=== PATIENT | female | born 1935 | race Hispanic/Latino ===

== ENCOUNTER 2022-04-13 20:14 | Inpatient (IN) ==
--- NOTE | 2022-04-13 20:48 | Emergency Department Note ---
Lower Extremity Injury HPI General Chief Complaint: Extremity Injury, Lower Stated Complaint: leg swelling Time Seen by Provider: 04/13/22 20:20 Source: family Mode of arrival: wheelchair Limitations: language barrier (Patient only speaks Moroccan) and altered mental status History of Present Illness HPI Narrative: Narrative: Family presents to ED with patient's with concerns of right-sided hip pain x7 days. Family states that patient fell on 06 April initially complained of pain but was able to ambulate. Her ambulation has progressively gotten worse to the point today where she just barely moves. They states that she will move her left leg or her right leg. They are not sure if she hit her head when she fell was they state that she has some altered mental status right now. They state that her Abilify was changed by her PCP and since that time she has just been a little bit more odd than baseline. They deny fever, chills, nausea, vomiting, diarrhea, dysuria, hematuria, urinary frequency, cardiac chest pain, shortness of breath. Family denies any [id number]-[id number] medication. They deny any other alleviating or aggravating factors. Related Data Home Medications Medication Instructions Recorded Confirmed calcium carbonate 500 mg calcium 1,200 mg PO QDAY 09/03/15 04/10/22 (1,250 mg) tablet flaxseed oil 1,000 mg capsule 1,000 mg PO QDAY 09/03/15 04/10/22 lactobacillus combination no.8 3 3,000 mmu cells PO QDAY 09/03/15 04/10/22 billion cell capsule prenat.vits,jenna,pim-[id number]-blkcj 1 tab PO QDAY 09/03/15 04/10/22 vitamin B complex 1 tab-cap PO QDAY 09/03/15 04/10/22 polyethylene glycol 3350 17 17 g PO QDAY 07/19/20 04/10/22 gram/dose oral powder (Miralax) Previous Rx's Medication Instructions Recorded sodium chloride 1 gram tablet 1,000 mg PO QDAY #1 tab 11/09/19 alendronate 70 mg tablet 70 mg PO QWEEK #12 tabs 01/15/22 hydrocodone 5 mg-acetaminophen 325 1 tab PO Q8H PRN pain #12 tabs 02/20/22 mg tablet divalproex 125 mg tablet,delayed 125 mg PO BID #60 tabs 02/26/22 release (Depakote) aripiprazole 5 mg tablet (Abilify) 5 mg PO QHS #30 tabs 04/10/22 Allergies Allergy/AdvReac Type Severity Reaction Status Date / Time No Known Drug Allergies Allergy Verified 04/13/22 20:20 Review of Systems ROS ROS Narrative: Narrative: All systems ED: reviewed and negative except as stated. 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, unspecified portion (Chronic) Constipation (Chronic) Depression (Chronic) Gastroesophageal reflux (Chronic) Hallux valgus (Chronic 09/13/14) Hyposmolality and/or hyponatremia (Chronic 10/29/14) Hypothyroidism (Chronic) Memory loss (Chronic) Obesity (Chronic) Osteoarthritis, multiple sites (Chronic) Osteoarthritis, lower leg, localized (Chronic) Hemorrhoids (Chronic 08/23/15) Adenomatous colon polyp (Chronic) Carcinoid tumor (Chronic) Infection of nailbed of toe of left foot (Acute) Encounter for Medicare annual wellness exam (Chronic) Urinary tract infection (Acute) Dysuria (Acute) Effusion, right shoulder (Acute) Pain due to dental caries (Acute) Cough (Acute) Distal radial fracture (Acute) Fall from slip, trip, or stumble (Acute) Pain, dental (Acute) Abscess, dental (Acute) SBO (small bowel obstruction) (Acute) Acute hyponatremia (Acute) Urinary retention (Acute) Partial small bowel obstruction (Acute) Volume depletion, gastrointestinal loss (Acute) Postoperative ileus (Acute) Elevated troponin (Acute) Anemia (Acute) Hyponatremia (Acute) Medicare annual wellness visit, initial (Acute) Urge incontinence (Acute) Urge incontinence (Acute) Annual physical exam (Acute) Dementia (Acute) Agitation due to dementia (Acute) Insomnia (Acute) Contusion of right foot (Acute) Bilateral leg edema (Acute) Bilateral leg edema (Acute) UTI (urinary tract infection) (Acute) Generalized anxiety disorder (Acute) Cognitive and behavioral changes (Acute) Mood changes (Acute) Venous insufficiency (Acute) OCD (obsessive compulsive disorder) (Acute) Insomnia (Acute) AMS (altered mental status) (Acute) Acute hyponatremia (Acute) Leg edema (Acute) Medical History Abdominal pain Abnormal glucose Adenomatous colon polyp Agitation due to dementia Anemia Annual physical exam Anxiety Atrophic vaginitis Back pain 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 Chronic interstitial cystitis (05/26/11) Colon polyp, hyperplastic (08/23/15) Constipation Dementia Depression PHQ 9 is 5, cut back dose of citalopram to 10mg qd. Diverticulitis of colon Diverticulosis Dysuria Elevated troponin Encounter for Medicare annual wellness exam Gastroesophageal reflux Hallux valgus (09/13/14) Dr. Mcdonough Hematuria (12/05/14) Hemorrhoids (08/23/15) Colonoscopy with polypectomy done, lower GI bleed resolved. Herpes zoster (12/05/14) History of hepatitis A hx of Hep A in ' History of lymphoid leukemia Hyponatremia Hyposmolality and/or hyponatremia (10/29/14) Hypothyroidism Infection of nailbed of toe of left foot Insomnia Leukopenia (12/20/14) Lower gastrointestinal hemorrhage Likely int hemorrhois vs diverticular bleed, rx with hydrocortisonecream, h/h inr stable Urgent referral to GI given h/o TA in past, as well as carcinoid tumor. 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 History of carcinoid tumor in small bowel resected 10/2011 History of abdominal surgery Abdominal hernia repair History of section 1964 History of hernia repair History of hysterectomy 1979 History of hysterectomy History of resection of small bowel 07/2020-small bowel adhesiolysis and small bowel resection with reanastomosis. Family History Father Malignant neoplasm of lung Social History Smoking Status: Never smoker Alcohol Intake Frequency: does not drink Substance Use: does not use Exam Narrative Narrative: Narrative: General Limitations: language barrier (Patient only speaks Moroccan) and altered mental status General appearance: Present alert Head Head: Present atraumatic and normocephalic Eye Eye: Present PERRL and EOMI ENT ENT: Present normal exam and normal oropharynx Respiratory Respiratory: Present normal lung sounds bilaterally; Absent respiratory distress Cardiovascular Cardiovascular: Present regular rate and normal rhythm Adbominal Abdominal: Present soft and normal bowel sounds; Absent tenderness Extremities Extremities: Present tenderness (Bilateral hips) and other (2+ by lower extremity edema) Neurological Neurological: Present alert and other (Unable to fully assess due to language barrier and patient's altered mental status) Psychiatric Psychiatric: Present flat affect and poor eye contact Skin Skin: Present warm (WNL) and intact Course Course Course Narrative: Patient was evaluated for hip pain altered mental status. She had fell couple days ago so a CT of the head was obtained with image reviewed myself with no acute intracranial findings. CT of the pelvis was obtained with image reviewed myself with no acute bony abnormality. Lab work was obtained and show that patient's was severely hyponatremic with a sodium of 114. Ammonia level was wit hin normal limits and her renal function was stable as well. Her altered mental status most likely secondary to the severe hyponatremia. This is probably not the reason why patient has not been ambulating properly per family. Case was discussed with hospitalist who has agreed to evaluate the patient for admission. Family is in agreement with plan. Consultations Consultation #1: Case discussed with hospitalist who has agreed to evaluate the patient for admission Time: 22:15 Vital Signs Vital signs: Vital Signs Temperature 98.8 F 04/13/22 20:14 Pulse Rate 85 04/13/22 20:14 Respiratory Rate 18 04/13/22 20:14 Blood Pressure 163/93 04/13/22 20:14 Pulse Oximetry (%) 100 04/13/22 20:14 Oxygen Delivery Method 04/13/22 20:14 Temperature 98.8 F 04/13/22 20:14 Pulse Rate 86 04/13/22 23:02 Respiratory Rate 18 04/13/22 20:14 Blood Pressure 164/79 04/13/22 23:02 Pulse Oximetry (%) 97 04/13/22 23:02 Oxygen Delivery Method 04/13/22 20:14 MDM MDM Narrative Medical decision making narrative: Narrative: Differential Diagnosis Differential Diagnosis: Hip fracture, UTI Medical Records Medical records reviewed: Yes I reviewed the patient's medical records. Lab Data Lab results reviewed: Yes I reviewed the patient's lab results. Result diagrams: 04/13/22 20:57 04/13/22 20:57 Labs: Lab Results 04/13/22 04/13/22 04/13/22 Range/Units 20:57 20:57 20:57 WBC 6.2 (4.5-11.0) K/mcL RBC 3.63 (3.59-5.38) M/mcL Hgb 10.8 L (11.2-15.7) g/dL Hct 31.2 L (34.1-44.9) % POC Hct (36-48) MCV 86.0 (80.0-100.0) fL MCH 29.8 (26.0-34.0) pg MCHC 34.6 (31.0-36.0) g/dL RDW 13.6 (11.5-14.5) % Plt Count 290 (140-440) K/mcL MPV 9.6 (7.4-10.4) fL Immature Gran % (Auto) 0.5 (0.0-0.5) % Neut % (Auto) 68.1 (38.0-78.0) % Lymph % (Auto) 17.2 (15.5-49.0) % Colbert % (Auto) 13.5 H (1.0-12.0) % Eos % (Auto) 0.2 (0.0-7.0) % Baso % (Auto) 0.5 (0.0-2.0) % Lymph # (Auto) 1.06 L (1.50-4.80) K/mcL Colbert # (Auto) 0.83 (0.10-0.90) K/mcL Eos # (Auto) 0.01 (0.00-0.70) K/mcL Baso # (Auto) 0.03 (0.00-0.30) K/mcL Immature Gran # 0.03 (0.00-0.05) K/mcl Absolute Neutrophils 4.23 (1.80-8.00) K/mcL POC Sodium (133-145) Sodium 114 L* (133-145) mmol/L POC Potassium (3.3-5.1) Potassium 4.3 (3.3-5.1) mmol/L POC Chloride (96-108) Chloride 78 L (96-108) mmol/L Carbon Dioxide 23 (22-30) mmol/L POC Total CO2 (22-30) Anion Gap 13.0 (8.0-16.0) POC BUN (6-20) BUN 15 (8-23) mg/dL Creatinine 1.0 (0.6-1.1) mg/dL POC Creatinine (0.6-1.2) GFR Calculation 51 Glucose 100 (70-105) mg/dL POC Glucose (70-105) Calcium 9.3 (8.6-10.4) mg/dL POC WB Ioniz Calcium (1.16-1.32) Total Bilirubin 0.4 (0.1-1.0) mg/dL AST 25 (<32) U/L ALT 11 (<40) U/L Alkaline Phosphatase 72 (39-117) U/L Ammonia 14 (11-51) umol/L NT-Pro-B Natriuret Pep (<450.0) pg/mL Total Protein 7.3 (5.9-8.4) gm/dL Albumin 3.8 (3.2-5.2) gm/dL Globulin 3.5 (2.2-3.7) gm/dL Albumin/Globulin Ratio 1.1 (1.0-2.3) 04/13/22 04/13/22 Range/Units 21:03 22:04 WBC (4.5-11.0) K/mcL RBC (3.59-5.38) M/mcL Hgb (11.2-15.7) g/dL Hct (34.1-44.9) % POC Hct 37.0 (36-48) MCV (80.0-100.0) fL MCH (26.0-34.0) pg MCHC (31.0-36.0) g/dL RDW (11.5-14.5) % Plt Count (140-440) K/mcL MPV (7.4-10.4) fL Immature Gran % (Auto) (0.0-0.5) % Neut % (Auto) (38.0-78.0) % Lymph % (Auto) (15.5-49.0) % Colbert % (Auto) (1.0-12.0) % Eos % (Auto) (0.0-7.0) % Baso % (Auto) (0.0-2.0) % Lymph # (Auto) (1.50-4.80) K/mcL Colbert # (Auto) (0.10-0.90) K/mcL Eos # (Auto) (0.00-0.70) K/mcL Baso # (Auto) (0.00-0.30) K/mcL Immature Gran # (0.00-0.05) K/mcl Absolute Neutrophils (1.80-8.00) K/mcL POC Sodium 116 L* (133-145) Sodium (133-145) mmol/L POC Potassium 4.4 (3.3-5.1) Potassium (3.3-5.1) mmol/L POC Chloride 82 L (96-108) Chloride (96-108) mmol/L Carbon Dioxide (22-30) mmol/L POC Total CO2 23.0 (22-30) Anion Gap (8.0-16.0) POC BUN 21 H (6-20) BUN (8-23) mg/dL Creatinine (0.6-1.1) mg/dL POC Creatinine 1.0 (0.6-1.2) GFR Calculation Glucose (70-105) mg/dL POC Glucose 104 (70-105) Calcium (8.6-10.4) mg/dL POC WB Ioniz Calcium 1.16 (1.16-1.32) Total Bilirubin (0.1-1.0) mg/dL AST (<32) U/L ALT (<40) U/L Alkaline Phosphatase (39-117) U/L Ammonia (11-51) umol/L NT-Pro-B Natriuret Pep 1534.0 H (<450.0) pg/mL Total Protein (5.9-8.4) gm/dL Albumin (3.2-5.2) gm/dL Globulin (2.2-3.7) gm/dL Albumin/Globulin Ratio (1.0-2.3) Radiology Data Radiology results reviewed: Yes I reviewed the patient's radiology results. Radiology results narrative: CT of the head obtained with image reviewed myself, no acute intracranial findings CT of the pelvis obtained with image reviewed myself, no obvious fractures EKG Data EKG #1: EKG attestation: Yes I reviewed and interpreted this EKG. EKG shows normal: sinus rhythm Rate: normal Rhythm: NSR Christoval/QRS: normal Heart block present: None ST segment elevation in: None ST segment depression in: None T wave inversions noted in: None Hyperacute T waves: None QTc: normal QRS morphology: Present normal Interpretation: no acute changes Core Measures AMI Core Measures Followed: Yes Discharge Plan Patient/Caregiver Discharge Instructions Pt seen by ASSEMBLER/PA only: No Clinical Impression: Acute hyponatremia, Leg edema AMS (altered mental status) Qualifiers: Altered mental status type: unspecified Qualified Code(s): R41.82 - Altered mental status, unspecified Patient Disposition: Xfer As Outpt/Obs ([facility]) Condition: Critical Follow up with: Ponce Renae MD [Primary Care Provider] - Prescriptions: No Action aripiprazole [Abilify] 5 mg tablet 5 mg PO QHS Qty: 30 0RF sodium chloride 1 gram tablet 1,000 mg PO QDAY Qty: 1 0RF alendronate 70 mg tablet 70 mg PO QWEEK Qty: 12 1RF divalproex [Depakote] 125 mg tablet,delayed release (DR/EC) 125 mg PO BID Qty: 60 1RF polyethylene glycol 3350 [Miralax] 17 gram/dose powder 17 g PO QDAY flaxseed oil 1,000 mg capsule 1,000 mg PO QDAY calcium carbonate 500 mg calcium (1,250 mg) tablet 1,200 mg PO QDAY vitamin B complex tablet 1 tab-cap PO QDAY prenat.vits,jenna,enp-vood-ywnru tablet 1 tab PO QDAY lactobacillus combination no.8 3 billion cell capsule 3,000 mmu cells PO QDAY hydrocodone-acetaminophen 5-325 mg tablet 1 tab PO Q8H PRN (Reason: pain) Qty: 12 0RF
[2022-04-13 21:08] LABS: POC Calcium, Ionized 1.16 (1.16-1.32); POC Potassium 4.4 (3.3-5.1)
[2022-04-13 21:43] LABS: Basophils # (Auto) 0.03 K/mcL (0.00-0.30); Basophils % (Auto) 0.5 % (0.0-2.0); Eosinophils # (Auto) 0.01 K/mcL (0.00-0.70); Eosinophils % (Auto) 0.2 % (0.0-7.0); Hematocrit 31.2 % (34.1-44.9); Hemoglobin 10.8 g/dL (11.2-15.7); Lymphocytes # (Auto) 1.06 K/mcL (1.50-4.80); Lymphocytes % (Auto) 17.2 % (15.5-49.0); Mean Corpuscular HGB Conc 34.6 g/dL (31.0-36.0); Mean Platelet Volume 9.6 fL (7.4-10.4); Monocytes # (Auto) 0.83 K/mcL (0.10-0.90); Monocytes % (Auto) 13.5 % (1.0-12.0); Neutrophils % (Auto) 68.1 % (38.0-78.0); Platelet Count 290 K/mcL (140-440); RBC 3.63 M/mcL (3.59-5.38); Red Cell Distribution Width 13.6 % (11.5-14.5); WBC 6.2 K/mcL (4.5-11.0)
[2022-04-13 22:04] LABS: ALT/SGPT 11 U/L (<40); AST/SGOT 25 U/L (<32); Albumin 3.8 gm/dL (3.2-5.2); Albumin/Globulin Ratio 1.1 (1.0-2.3); Alkaline Phosphatase 72 U/L (39-117); Bilirubin,Total 0.4 mg/dL (0.1-1.0); Blood Urea Nitrogen 15 mg/dL (8-23); Calcium 9.3 mg/dL (8.6-10.4); Carbon Dioxide 23 mmol/L (22-30); Chloride 78 mmol/L (96-108); Globulin 3.5 gm/dL (2.2-3.7); Glomerular Filtration Rate 51; Glucose 100 mg/dL (70-105)
[2022-04-13] MEDS ORDERED: LACTULOSE 20 GM/30 ML ORAL.SOL PO PRN (23:31)
[2022-04-13] MEDS ORDERED: ONDANSETRON 4 MG/2 ML VIAL IV PRN (23:31)
[2022-04-13] MEDS ORDERED: SENNOSIDES 1 TABLET PO PRN (23:31)
[2022-04-13] MEDS ORDERED: 0.9 % SODIUM CHLORIDE 1,000 ML IV SCH (23:31)
[2022-04-14] MEDS ORDERED: LORazepam 2 MG/ML VIAL IV ONE ×2 (00:50→08:40)
[2022-04-14] MEDS ORDERED: LORazepam 2 MG/ML VIAL ONE (01:00)
[2022-04-14 01:40] LABS: Sodium, Urine Random 94 mmol/L
[2022-04-14 01:51] LABS: Osmolality,Urine 429 mOSM/kg (80-1000)
[2022-04-14 02:00] LABS: Blood Urea Nitrogen 20 mg/dL (8-23); Calcium 9.2 mg/dL (8.6-10.4); Carbon Dioxide 24 mmol/L (22-30); Chloride 80 mmol/L (96-108); Glomerular Filtration Rate 58; Glucose 99 mg/dL (70-105)
[2022-04-14] MEDS: ACETAMINOPHEN 1,000 MG/100 ML BAG IV PRN (03:19)
[2022-04-14] MEDS ORDERED: ACETAMINOPHEN 1,000 MG/100 ML BAG IV ONE (03:22)
[2022-04-14] MEDS: 0.9 % SODIUM CHLORIDE 10 ML SYRINGE IV SCH ×3 (04:58→20:05)
--- NOTE | 2022-04-14 05:48 | Cat Scan Report ---
INDICATION: ams COMPARISON: Previous brain CT scan dated 07/07/2020. Previous MRI scans dated 08/18/2012 at 05/10/2012 TECHNIQUE: Axial noncontrast-enhanced images through the brain. Sagittally and coronally reformatted images. FINDINGS: Examination was initially interpreted by Dr. [facility] Cerebral hemispheres:Negative. No intra-axial abnormality. No intra-axial hematoma. No localized mass effect. There is cerebral atrophy which is predominantly bifrontal and right temporal. Typically frontal temporal lobar degeneration occurs in younger patients. There is a atrophic pattern is considered nonspecific and probably age related in this patient. Brainstem and cerebellum:No intra-axial abnormality Extra-axial:No acute hemorrhage. No subdural or epidural hematoma. No subarachnoid hemorrhage. Basilar cisterns are normal Calvarial:No calvarial fracture. No lytic lesion Temporal bones are negative. No destructive lesions Soft tissue, orbits, sinuses:Orbits and visualized facial soft tissues and paranasal sinuses are negative IMPRESSION: 1. Atrophy, probably age related 2. No acute or focal abnormality The exam was performed using radiation dose optimization techniques including, but not limited to, automated exposure control, adjustment of the mA and/or kV according to patient size and use of iterative reconstruction technique. Interpreted and Authenticated by: James Perez 04/14/22
--- NOTE | 2022-04-14 05:53 | Cat Scan Report ---
INDICATION: pain bilat hips TECHNIQUE: Axial images through the pelvis. Intravenous contrast material was not administered. Sagittal and coronal reformatted images COMPARISON: None. FINDINGS: Examination was initially interpreted by [facility] There is no hip fracture. Femoral heads and necks are negative. No evidence for avascular necrosis. There is degenerative joint disease bilaterally symmetric. Sacrum is negative. There is no insufficiency fracture. Pelvis is negative. No lytic lesions. No fracture. Superior and inferior pubic rami are intact. There is generalized infiltration of the subcutaneous fat. This is in the lower abdominal wall and gluteal regions. Findings may be related to peripheral edema and anasarca. There is no focal mass. No abscess. No soft tissue gas. The bladder is distended. No bladder calculi. No detectable mass on this noncontrast enhanced examination. Anterior abdominal wall in the pelvis is patulous. There is mild sigmoid diverticulosis without evidence for diverticulitis. IMPRESSION: 1. 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 No hip fracture 2. Subcutaneous soft tissue density may be secondary to peripheral edema. No focal mass 3. Mildly distended bladder Interpreted and Authenticated by: James Perez 04/14/22
[2022-04-14] MEDS ORDERED: cefTRIAXone 1 GM VIAL IV ONE (06:49)
[2022-04-14 08:00] LABS: Blood Urea Nitrogen 19 mg/dL (8-23); Calcium 8.5 mg/dL (8.6-10.4); Carbon Dioxide 22 mmol/L (22-30); Chloride 83 mmol/L (96-108); Glomerular Filtration Rate 58; Glucose 74 mg/dL (70-105)
[2022-04-14] MEDS: DOCUSATE SODIUM 100 MG CAPSULE PO SCH ×2 (08:48→20:05)
[2022-04-14] MEDS: ENOXAPARIN 40 MG/0.4 ML SYRINGE SQ SCH (08:48)
[2022-04-14] MEDS: QUEtiapine 25 MG TABLET PO SCH ×2 (08:49→20:05)
[2022-04-14 08:59] LABS: Basophils # (Auto) 0.04 K/mcL (0.00-0.30); Basophils % (Auto) 0.7 % (0.0-2.0); Eosinophils # (Auto) 0.15 K/mcL (0.00-0.70); Eosinophils % (Auto) 2.5 % (0.0-7.0); Hematocrit 27.5 % (34.1-44.9); Lymphocytes # (Auto) 1.38 K/mcL (1.50-4.80); Lymphocytes % (Auto) 22.5 % (15.5-49.0); Mean Cell Volume 88.4 fL (80.0-100.0); Mean Corpuscular HGB Conc 32.7 g/dL (31.0-36.0); Mean Platelet Volume 9.7 fL (7.4-10.4); Monocytes # (Auto) 1.44 K/mcL (0.10-0.90); Monocytes % (Auto) 23.5 % (1.0-12.0); Neutrophils % (Auto) 50.1 % (38.0-78.0); Platelet Count 213 K/mcL (140-440); RBC 3.11 M/mcL (3.59-5.38); WBC 6.1 K/mcL (4.5-11.0)
--- NOTE | 2022-04-14 10:16 | EKG ---
[facility] Test Date: 2022-04-13 Pat Name: Brandy Swanson Department: ED Room: Gender: Female Transition Specialist: ANTONI : 1935 Requested By: Poncho Kemp Order Number: [id number] Reading MD: Jaun Ramos Measurements Intervals [place] Rate: 82 P: 76 TN: 197 QRS: -22 QRSD: 102 T: 21 QT: 397 QTc: 464 Interpretive Statements Sinus rhythm Borderline left axis deviation Low voltage, precordial leads RSR' in V1 or V2, probably normal variant Electronically Signed On 04-14-2022 10:16:52 PDT by Jaun Ramos /store/M0/[id number]
--- NOTE | 2022-04-14 12:01 | Internal Med History&Physical ---
HPI History of Present Illness Patient information: Note initiated : 04/14/22 at 11:53 am Service Date, if different from initiated Date: [as above] Patient: Brandy Swanson 86 y/o F admitted on 04/13/22 for leg swelling. Chief Complaint: [ALOC] Chief complaint: Weakness, fall History of present illness: Ms. Swanson is a 86 year old F with a past medical history significant for dementia, hypothyroidism, anxiety/depression, and pedal edema who presents to the hospital with delirium upon dementia. History is obtained secondhand from the daughter as the patient is quite encephalopathic. Of note, per family report, she did have a fall on April 06 and thereafter was complaining of hip pain. Per the daughter's report, the patient has been declining functionally and cognitively recently. Her primary care physician did put her on Depakote for her delirium however this only helped for a short period of time. Per the daughter's report, she has brought her mother to the ER several times. She is hopeful that she can be medically stabilized, then go to a fdc facility and possibly return home. She is still unsure if she can look after her mother at home in the future. On presentation, the patient was hemodynamically stable and afebrile. She was found to be significantly hyponatremic with a sodium of 116. The hospitalist service was asked to admit the patient for further management and evaluation of her toxic metabolic encephalopathy and severe hyponatremia in the setting of dementia. 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, unspecified portion (Chronic) Constipation (Chronic) Depression (Chronic) Gastroesophageal reflux (Chronic) Hallux valgus (Chronic 09/13/14) Hyposmolality and/or hyponatremia (Chronic 10/29/14) Hypothyroidism (Chronic) Memory loss (Chronic) Obesity (Chronic) Osteoarthritis, multiple sites (Chronic) Osteoarthritis, lower leg, localized (Chronic) Hemorrhoids (Chronic 08/23/15) Adenomatous colon polyp (Chronic) Carcinoid tumor (Chronic) Infection of nailbed of toe of left foot (Acute) Encounter for Medicare annual wellness exam (Chronic) Urinary tract infection (Acute) Dysuria (Acute) Effusion, right shoulder (Acute) Pain due to dental caries (Acute) Cough (Acute) Distal radial fracture (Acute) Fall from slip, trip, or stumble (Acute) Pain, dental (Acute) Abscess, dental (Acute) SBO (small bowel obstruction) (Acute) Acute hyponatremia (Acute) Urinary retention (Acute) Partial small bowel obstruction (Acute) Volume depletion, gastrointestinal loss (Acute) Postoperative ileus (Acute) Elevated troponin (Acute) Anemia (Acute) Hyponatremia (Acute) Medicare annual wellness visit, initial (Acute) Urge incontinence (Acute) Urge incontinence (Acute) Annual physical exam (Acute) Dementia (Acute) Agitation due to dementia (Acute) Insomnia (Acute) Contusion of right foot (Acute) Bilateral leg edema (Acute) Bilateral leg edema (Acute) UTI (urinary tract infection) (Acute) Generalized anxiety disorder (Acute) Cognitive and behavioral changes (Acute) Mood changes (Acute) Venous insufficiency (Acute) OCD (obsessive compulsive disorder) (Acute) Insomnia (Acute) AMS (altered mental status) (Acute) Acute hyponatremia (Acute) Leg edema (Acute) Medical History Abdominal pain Abnormal glucose Adenomatous colon polyp Agitation due to dementia Anemia Annual physical exam Anxiety Atrophic vaginitis Back pain 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 Chronic interstitial cystitis (05/26/11) Colon polyp, hyperplastic (08/23/15) Constipation Dementia Depression PHQ 9 is 5, cut back dose of citalopram to 10mg qd. Diverticulitis of colon Diverticulosis Dysuria Elevated troponin Encounter for Medicare annual wellness exam Gastroesophageal reflux Hallux valgus (09/13/14) Dr. Mcdonough Hematuria (12/05/14) Hemorrhoids (08/23/15) Colonoscopy with polypectomy done, lower GI bleed resolved. Herpes zoster (12/05/14) History of hepatitis A hx of Hep A in 20's History of lymphoid leukemia Hyponatremia Hyposmolality and/or hyponatremia (10/29/14) Hypothyroidism Infection of nailbed of toe of left foot Insomnia Leukopenia (12/20/14) Lower gastrointestinal hemorrhage Likely int hemorrhois vs diverticular bleed, rx with hydrocortisonecream, h/h inr stable Urgent referral to GI given h/o TA in past, as well as carcinoid tumor. 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 History of carcinoid tumor in small bowel resected 10/2011 History of abdominal surgery Abdominal hernia repair History of section 1964 History of hernia repair History of hysterectomy 1979 History of hysterectomy History of resection of small bowel 07/2020-small bowel adhesiolysis and small bowel resection with reanastomosis. Family History Father Malignant neoplasm of lung Social History marital status: legally alcohol intake frequency: does not drink substance use type: does not use additional history: Patient uses a walker and lives at home with her daughter MEDS/ALLERGIES Home Medications and Allergies Home Medications Medication Instructions Recorded Confirmed Type flaxseed oil 1,000 mg capsule 1,000 mg PO QDAY 09/03/15 04/14/22 History lactobacillus combination no.8 3 3,000 mmu cells PO QDAY 09/03/15 04/14/22 History billion cell capsule prenat.vits,jenna,[id number] 1 tab PO QDAY 09/03/15 04/14/22 History vitamin B complex 1 tab-cap PO QDAY 09/03/15 04/14/22 History sodium chloride 1 gram tablet 1,000 mg PO QDAY #1 tab 11/09/19 04/14/22 Rx polyethylene glycol 3350 17 17 g PO QDAY 07/19/20 04/14/22 History gram/dose oral powder (Miralax) alendronate 70 mg tablet 70 mg PO QWEEK #12 tabs 01/15/22 04/14/22 Rx divalproex 125 mg tablet,delayed 125 mg PO BID #60 tabs 02/26/22 04/14/22 Rx release (Depakote) aripiprazole 5 mg tablet (Abilify) 5 mg PO QHS #30 tabs 04/10/22 04/14/22 Rx Allergies Allergy/AdvReac Type Severity Reaction Status Date / Time No Known Drug Allergies Allergy Verified 04/14/22 00:19 EXAM Constitutional Vitals: Temp Pulse Resp BP Pulse Ox O2 Del Method O2 Flow Rate 97.4 F 65 17 107/51 94 0 04/14/22 08:01 04/14/22 10:06 04/14/22 10:06 04/14/22 10:06 04/14/22 10:06 04/14/22 03:04 04/14/22 08:01 General appearance: obese Head Head exam: Present atraumatic, normal inspection and normocephalic Eye Eye exam: Present EOMI, normal appearance and PERRL; Absent conjunctival injection ENT ENT exam: Present normal exam; Absent mucous membranes dry Neck Neck exam: Present full ROM; Absent lymphadenopathy Respiratory Respiratory exam: Present normal respiratory exam and CTAB; Absent decreased breath sounds, respiratory distress or wheezes Cardiovascular Cardiovascular exam: Present normal rate and rhythm and RRR; Absent JVD GI/Abdominal GI/Abdominal exam: Present normal bowel sounds and soft; Absent diminished bowel sounds, distended, guarding, mass, rebound or tenderness Neurological Exam Neurological exam: Present alert and altered Expanded Neurological Exam Neurological exam: Present inattentive Psychiatric Psychiatric exam: Present agitated and anxious Skin Skin exam: Present intact and warm; Absent erythema, pallor, petechiae or rash DATA Data Completed and Pending Labs: Labs from last 24 hours 04/14/22 04/14/22 04/13/22 05:36 05:36 23:45 WBC 6.1 RBC 3.11 L Hgb 9.0 L Hct 27.5 L POC Hct MCV 88.4 MCH 28.9 MCHC 32.7 RDW 14.0 Plt Count 213 MPV 9.7 Immature Gran % (Auto) 0.7 H Neut % (Auto) 50.1 Lymph % (Auto) 22.5 Ralls % (Auto) 23.5 H Eos % (Auto) 2.5 Baso % (Auto) 0.7 Lymph # (Auto) 1.38 L Ralls # (Auto) 1.44 H Eos # (Auto) 0.15 Baso # (Auto) 0.04 Immature Gran # 0.04 Absolute Neutrophils 3.11 POC Sodium Sodium 116 L* 114 L* POC Potassium Potassium 4.0 4.4 POC Chloride Chloride 83 L 80 L Carbon Dioxide 22 24 POC Total CO2 Anion Gap 11.0 10.0 POC BUN BUN 19 20 Creatinine 0.9 0.9 POC Creatinine GFR Calculation 58 58 Glucose 74 99 POC Glucose Osmolality Calcium 8.5 L 9.2 POC WB Ioniz Calcium Total Bilirubin AST ALT Alkaline Phosphatase Ammonia NT-Pro-B Natriuret Pep Total Protein Albumin Globulin Albumin/Globulin Ratio Urine Osmolality Ur Random Sodium 04/13/22 04/13/22 04/13/22 22:17 22:17 22:04 WBC RBC Hgb Hct POC Hct MCV MCH MCHC RDW Plt Count MPV Immature Gran % (Auto) Neut % (Auto) Lymph % (Auto) Ralls % (Auto) Eos % (Auto) Baso % (Auto) Lymph # (Auto) Ralls # (Auto) Eos # (Auto) Baso # (Auto) Immature Gran # Absolute Neutrophils POC Sodium Sodium POC Potassium Potassium POC Chloride Chloride Carbon Dioxide POC Total CO2 Anion Gap POC BUN BUN Creatinine POC Creatinine GFR Calculation Glucose POC Glucose Osmolality 245 L Calcium POC WB Ioniz Calcium Total Bilirubin AST ALT Alkaline Phosphatase Ammonia NT-Pro-B Natriuret Pep 1534.0 H Total Protein Albumin Globulin Albumin/Globulin Ratio Urine Osmolality 429 Ur Random Sodium 94 04/13/22 04/13/22 04/13/22 21:03 20:57 20:57 WBC 6.2 RBC 3.63 Hgb 10.8 L Hct 31.2 L POC Hct 37.0 MCV 86.0 MCH 29.8 MCHC 34.6 RDW 13.6 Plt Count 290 MPV 9.6 Immature Gran % (Auto) 0.5 Neut % (Auto) 68.1 Lymph % (Auto) 17.2 Ralls % (Auto) 13.5 H Eos % (Auto) 0.2 Baso % (Auto) 0.5 Lymph # (Auto) 1.06 L Ralls # (Auto) 0.83 Eos # (Auto) 0.01 Baso # (Auto) 0.03 Immature Gran # 0.03 Absolute Neutrophils 4.23 POC Sodium 116 L* Sodium POC Potassium 4.4 Potassium POC Chloride 82 L Chloride Carbon Dioxide POC Total CO2 23.0 Anion Gap POC BUN 21 H BUN Creatinine POC Creatinine 1.0 GFR Calculation Glucose POC Glucose 104 Osmolality Calcium POC WB Ioniz Calcium 1.16 Total Bilirubin AST ALT Alkaline Phosphatase Ammonia 14 NT-Pro-B Natriuret Pep Total Protein Albumin Globulin Albumin/Globulin Ratio Urine Osmolality Ur Random Sodium 04/13/22 20:57 WBC RBC Hgb Hct POC Hct MCV MCH MCHC RDW Plt Count MPV Immature Gran % (Auto) Neut % (Auto) Lymph % (Auto) Ralls % (Auto) Eos % (Auto) Baso % (Auto) Lymph # (Auto) Ralls # (Auto) Eos # (Auto) Baso # (Auto) Immature Gran # Absolute Neutrophils POC Sodium Sodium 114 L* POC Potassium Potassium 4.3 POC Chloride Chloride 78 L Carbon Dioxide 23 POC Total CO2 Anion Gap 13.0 POC BUN BUN 15 Creatinine 1.0 POC Creatinine GFR Calculation 51 Glucose 100 POC Glucose Osmolality Calcium 9.3 POC WB Ioniz Calcium Total Bilirubin 0.4 AST 25 ALT 11 Alkaline Phosphatase 72 Ammonia NT-Pro-B Natriuret Pep Total Protein 7.3 Albumin 3.8 Globulin 3.5 Albumin/Globulin Ratio 1.1 Urine Osmolality Ur Random Sodium A/P Assessment and plan (1) Toxic metabolic encephalopathy: Status: Acute (2) Acute hyponatremia: Status: Acute (3) Dementia: Status: Acute (4) Leg edema: Status: Acute (5) Fall: Status: Acute (6) Hypothyroidism: Status: Chronic (7) Obesity: Status: Chronic Narrative A/P Narrative: The patient is being hospitalized for further management and evaluation of her toxic metabolic encephalopathy. This may be simply delirium upon dementia or may be exacerbated by her underlying hyponatremia. 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 She will be placed on 800 cc fluid restriction. We will follow her BMP, and may consider adding salt tabs. The patient's IV fluids have now been discontinued as there was no improvement. For her agitation, she has required IV Ativan and will be started on Seroquel 25 mg p.o. twice daily. She did have a fall at home. We will continue fall precautions per facility protocol. She may require a one-to-one sitter. Of note, she had a CT head and CT pelvis on arrival which was negative. We will check a urinalysis as this was not done, and will give an empiric dose of ceftriaxone. Time Spent With Patient Time: Total time spent is greater than 50% in coordination of care (as documented) at patient's floor/unit and/or counseling patient: Total time spent with greater than 50% in coordination of care (as documented) at patient's floor/unit and/or counseling patient:: Greater than 70 minutes
[2022-04-14 15:30] LABS: Appearance,Urine Clear (Clear); Bacteria,Urine 0 /hpf (0); Bilirubin,Urine Negative (Negative); Color,Urine Yellow; Culture Indicated,Urine No; Glucose,Urine (UA) Negative (Negative); Ketones,Urine Negative (Negative); Leukocyte Esterase,Urine Negative /uL (Negative); Nitrate,Urine Negative (Negative); PH,Urine 6.5 (5.0-9.0); Protein,Urine >=300 mg/dL mg/dL (Negative); Urine Blood Trace-intact ery/mcL (Negative); Urine RBC 1 /hpf (0-3); Urine Squamous Epithelial Cell 1 /hpf (0-4); Urine WBC 0 /hpf (0-4); Urobilinogen,Urine Normal
[2022-04-15] MEDS: ACETAMINOPHEN 1,000 MG/100 ML BAG IV PRN (02:23)
[2022-04-15 08:16] LABS: Blood Urea Nitrogen 16 mg/dL (8-23); Calcium 8.7 mg/dL (8.6-10.4); Carbon Dioxide 21 mmol/L (22-30); Chloride 87 mmol/L (96-108); Glomerular Filtration Rate 66; Glucose 78 mg/dL (70-105)
[2022-04-15] MEDS: QUEtiapine 25 MG TABLET PO SCH ×2 (09:11→21:44)
[2022-04-15] MEDS: DOCUSATE SODIUM 100 MG CAPSULE PO SCH ×2 (09:11→21:44)
[2022-04-15] MEDS: 0.9 % SODIUM CHLORIDE 10 ML SYRINGE IV SCH ×3 (09:11→21:44)
[2022-04-15] MEDS: ENOXAPARIN 40 MG/0.4 ML SYRINGE SQ SCH (09:11)
--- NOTE | 2022-04-15 10:16 | Internal Med Progress Note ---
SUBJECTIVE Subjective Patient information: Note initiated : 04/15/22 at 10:14 am Service Date, if different from initiated Date: [] Patient: Brandy Swanson 86 y/o F admitted on 04/13/22 for leg swelling. Chief Complaint: [ALOC] Principal diagnosis: Failure to thrive, fall, encephalopathy Interval history: The patient was sedated this morning. She cannot provide a history. The daughter was at work. Constitutional Vitals: Vital Signs Temp Pulse Resp BP Pulse Ox O2 Del Method O2 Flow Rate 98.6 F 69 17 81/61 100 0 04/15/22 08:10 04/15/22 08:10 04/15/22 08:10 04/15/22 08:10 04/15/22 08:10 04/14/22 08:00 04/15/22 04:01 Period Temp Pulse Resp BP Sys/Lubin Pulse Ox O2 Del Method O2 Flow Rate Last 24 Hr 97.4 F-99.1 F 65-81 15-25 81-148/35-75 95-100 0-0 Intake and Output 04/14/22 04/15/22 04/15/22 21:59 05:59 13:59 Intake Total 300 100 100 Output Total 1 3 2 Balance 299 97 98 Weight 85.899 kg Intake & Output: Intake & Output 04/14/22 04/15/22 04/15/22 21:59 05:59 13:59 Intake Total 300 100 100 Output Total 1 3 2 Balance 299 97 98 Weight 85.899 kg Intake: IV 100 Oral 300 100 Output: Void Amount 0 # of times incontinent of urine 1 3 2 Other: Meal Dinner Percent of Meal Consumed 25% Stool Size Smear Stool Color Yellow # Voids 2 Neurological Exam Neurological exam: Present altered OBJ DATA Labs CBC & Chem 7: 04/14/22 05:36 04/15/22 05:44 Labs: Abnormal Lab Results 04/15/22 04/14/22 04/14/22 05:44 12:00 05:36 RBC Hgb Hct Immature Gran % (Auto) Grimes % (Auto) Lymph # (Auto) Grimes # (Auto) POC Sodium Sodium 118 L* 116 L* POC Chloride Chloride 87 L 83 L Carbon Dioxide 21 L POC BUN Osmolality Calcium 8.5 L NT-Pro-B Natriuret Pep Urine Protein >=300 mg/dl A Urine Occult Blood Trace-intact A 04/14/22 04/13/22 04/13/22 05:36 23:45 22:17 RBC 3.11 L Hgb 9.0 L Hct 27.5 L Immature Gran % (Auto) 0.7 H Grimes % (Auto) 23.5 H Lymph # (Auto) 1.38 L Grimes # (Auto) 1.44 H POC Sodium Sodium 114 L* POC Chloride Chloride 80 L Carbon Dioxide POC BUN Osmolality 245 L Calcium NT-Pro-B Natriuret Pep Urine Protein Urine Occult Blood 04/13/22 04/13/22 04/13/22 22:04 21:03 20:57 RBC Hgb 10.8 L Hct 31.2 L Immature Gran % (Auto) Grimes % (Auto) 13.5 H Lymph # (Auto) 1.06 L Grimes # (Auto) POC Sodium 116 L* Sodium POC Chloride 82 L Chloride Carbon Dioxide POC BUN 21 H Osmolality Calcium NT-Pro-B Natriuret Pep 1534.0 H Urine Protein Urine Occult Blood 04/13/22 20:57 RBC Hgb Hct Immature Gran % (Auto) Grimes % (Auto) Lymph # (Auto) Grimes # (Auto) POC Sodium Sodium 114 L* POC Chloride Chloride 78 L Carbon Dioxide POC BUN Osmolality Calcium NT-Pro-B Natriuret Pep Urine Protein Urine Occult Blood Meds: Medications Amoxicillin/Clavulanate Potassium (Amoxicillin/Potassium Clav 875 Mg Tablet) 875 mg PO [facility]; Protocol Docusate Sodium (Docusate Sodium 100 Mg Capsule) 100 mg PO BID [facility] Last Admin: 04/15/22 09:11 Dose: 100 mg Enoxaparin Sodium (Enoxaparin 40 Mg/0.4 Ml Syringe) 40 mg SQ DAILY [facility] Last Admin: 04/15/22 09:11 Dose: 40 mg Acetaminophen (Ofirmev) 1,000 mg in 100 mls @ 200 mls/hr IV PRN PRN; Protocol PRN Reason: Pain Last Infusion: 04/15/22 07:07 Dose: Infused Lactulose (Lactulose 20 Gm/30 Ml Oral.Kianna) 10 gm PO DAILYP PRN PRN Reason: Constipation Last Admin: 04/15/22 09:11 Dose: 10 gm Ondansetron HCl (Ondansetron 4 Mg/2 Ml Vial) 4 mg IV Q4HP PRN; Protocol PRN Reason: Nausea And Vomiting Quetiapine Fumarate (Quetiapine 25 Mg Tablet) 25 mg PO BID [facility] Last Admin: 04/15/22 09:11 Dose: 25 mg Senna (Sennosides 1 Tablet) 2 tab PO HSP PRN PRN Reason: Constipation Sodium Chloride (0.9 % Sodium Chloride 10 Ml Syringe) 10 ml IV Q8 [facility] Last Admin: 04/15/22 09:11 Dose: 10 ml Sodium Chloride (Sodium Chloride 1 Gm Tablet) 1 gm PO TID CATIA A/P Assessment and plan (1) Toxic metabolic encephalopathy: Status: Acute (2) Acute hyponatremia: Status: Acute (3) Dementia: Status: Acute (4) Leg edema: Status: Acute (5) Fall: Status: Acute (6) Hypothyroidism: Status: Chronic (7) Obesity: Status: Chronic Narrative A/P Narrative: The patient is being hospitalized for further management and evaluation of her toxic metabolic encephalopathy. This may be simply delirium upon dementia or may be exacerbated by her underlying hyponatremia. 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 She will be placed on 800 cc fluid restriction. We will follow her BMP, and may consider adding salt tabs. The patient's IV fluids have now been discontinued as there was no improvement. For her agitation, she has required IV Ativan and will be started on Seroquel 25 mg p.o. twice daily. She did have a fall at home. We will continue fall precautions per facility protocol. She may require a one-to-one sitter. Of note, she had a CT head and CT pelvis on arrival which was negative. We will check a urinalysis as this was not done, and will give an empiric dose of ceftriaxone. 04/15: The patient's hyponatremia is improving with fluid restriction. It is up to 118 today. We will start sodium tablets. There is a possibility that she may have cellulitis as her legs are erythematous and edematous and will start Augmentin. Her urine culture was negative for UTI. With the improvement of her electrolyte derangements and infectious process, the hope is that her mentation in turn improves. This however may be optimistic as she has advanced dementia and may require long-term care. Social work and case management will work on disposition. Continue Seroquel 25 mg p.o. twice daily. Time Spent With Patient Time: Total time spent is greater than 50% in coordination of care (as documented) at patient's floor/unit and/or counseling patient: Total time spent with greater than 50% in coordination of care (as documented) at patient's floor/unit and/or counseling patient:: 25 - 35 minutes
[2022-04-15] MEDS: SODIUM CHLORIDE 1 GM TABLET PO SCH ×2 (15:49→21:44)
[2022-04-15] MEDS ORDERED: POLYETHYLENE GLYCOL 3350 17 GM PACKET PO ONE (21:22)
[2022-04-15] MEDS ORDERED: POLYETHYLENE GLYCOL 3350 17 GM PACKET PO PRN (21:29)
[2022-04-15] MEDS ORDERED: POLYETHYLENE GLYCOL 3350 17 GM PACKET ONE (21:48)
[2022-04-16] MEDS: 0.9 % SODIUM CHLORIDE 10 ML SYRINGE IV SCH ×3 (06:09→20:59)
[2022-04-16 07:01] LABS: Basophils # (Auto) 0.02 K/mcL (0.00-0.30); Basophils % (Auto) 0.3 % (0.0-2.0); Eosinophils # (Auto) 0.05 K/mcL (0.00-0.70); Eosinophils % (Auto) 0.9 % (0.0-7.0); Hematocrit 29.6 % (34.1-44.9); Hemoglobin 9.8 g/dL (11.2-15.7); Lymphocytes # (Auto) 1.01 K/mcL (1.50-4.80); Lymphocytes % (Auto) 17.2 % (15.5-49.0); Mean Cell Volume 87.6 fL (80.0-100.0); Mean Corpuscular HGB Conc 33.1 g/dL (31.0-36.0); Mean Platelet Volume 9.7 fL (7.4-10.4); Monocytes # (Auto) 1.15 K/mcL (0.10-0.90); Monocytes % (Auto) 19.6 % (1.0-12.0); Neutrophils % (Auto) 61.8 % (38.0-78.0); Platelet Count 234 K/mcL (140-440); RBC 3.38 M/mcL (3.59-5.38); Red Cell Distribution Width 14.3 % (11.5-14.5); WBC 5.9 K/mcL (4.5-11.0)
[2022-04-16 07:27] LABS: ALT/SGPT 8 U/L (<40); AST/SGOT 19 U/L (<32); Albumin 2.7 gm/dL (3.2-5.2); Albumin/Globulin Ratio 0.9 (1.0-2.3); Alkaline Phosphatase 59 U/L (39-117); Bilirubin,Direct < 0.2 mg/dL (0-0.3); Bilirubin,Total 0.3 mg/dL (0.1-1.0); Blood Urea Nitrogen 15 mg/dL (8-23); Calcium 8.7 mg/dL (8.6-10.4); Carbon Dioxide 23 mmol/L (22-30); Chloride 88 mmol/L (96-108); Globulin 3.1 gm/dL (2.2-3.7); Glomerular Filtration Rate 66; Glucose 96 mg/dL (70-105); Lactate Dehydrogenase 199 U/L (135-225); Phosphorous 3.2 mg/dL (2.5-4.5); Triglycerides 20 mg/dL (<150); Uric Acid 4.8 mg/dL (2.5-8.0)
[2022-04-16] MEDS: AMOXICILLIN/POTASSIUM CLAV 875 MG TABLET PO SCH (08:26)
[2022-04-16] MEDS: DOCUSATE SODIUM 100 MG CAPSULE PO SCH ×2 (09:39→20:06)
[2022-04-16] MEDS: ENOXAPARIN 40 MG/0.4 ML SYRINGE SQ SCH (09:39)
[2022-04-16] MEDS: SODIUM CHLORIDE 1 GM TABLET PO SCH ×3 (09:39→20:06)
[2022-04-16] MEDS: QUEtiapine 25 MG TABLET PO SCH ×2 (09:39→20:06)
--- NOTE | 2022-04-16 10:44 | Internal Med Progress Note ---
SUBJECTIVE Subjective Patient information: Note initiated : 04/16/22 at 10:39 am Service Date, if different from initiated Date: [] Patient: Brandy Swanson 86 y/o F admitted on 04/13/22 for leg swelling. Chief Complaint: [] Principal diagnosis: Failure to thrive, fall, encephalopathy Interval history: The patient is being hospitalized for further management and evaluation of her toxic metabolic encephalopathy. This may be simply delirium upon dementia or may be exacerbated by her underlying hyponatremia. 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 She will be placed on 800 cc fluid restriction. We will follow her BMP, and may consider adding salt tabs. The patient's IV fluids have now been discontinued as there was no improvement. For her agitation, she has required IV Ativan and will be started on Seroquel 25 mg p.o. twice daily. She did have a fall at home. We will continue fall precautions per facility protocol. She may require a one-to-one sitter. Of note, she had a CT head and CT pelvis on arrival which was negative. We will check a urinalysis as this was not done, and will give an empiric dose of ceftriaxone. 04/15: The patient's hyponatremia is improving with fluid restriction. It is up to 118 today. We will start sodium tablets. There is a possibility that she may have cellulitis as her legs are erythematous and edematous and will start Augmentin. Her urine culture was negative for UTI. With the improvement of her electrolyte derangements and infectious process, the hope is that her mentation in turn improves. This however may be optimistic as she has advanced dementia and may require long-term care. Social work and case management will work on disposition. Continue Seroquel 25 mg p.o. twice daily 04/16-patient seen in room along with daughters. No overnight events. Sodium gradually improving. On free water restriction, salt tabs, family refusing options for placement and would like to take her home. Lower extreme cellulitis much improved. Tolerating diet. Ongoing therapies. Anticipate discharge in 24 to 48 hours pending clinical improvement. Constitutional Vitals: Vital Signs Temp Pulse Resp BP Pulse Ox O2 Del Method O2 Flow Rate 98.0 F 78 24 H 121/63 97 0 04/16/22 08:01 04/16/22 08:01 04/16/22 08:01 04/16/22 08:01 04/16/22 08:01 04/16/22 02:00 04/15/22 04:01 Period Temp Pulse Resp BP Sys/Lubin Pulse Ox O2 Del Method O2 Flow Rate Last 24 Hr 97 F-98.5 F 71-88 17-30 101-152/49-92 95-100 Room Air-Room Air Intake and Output 04/15/22 04/16/22 04/16/22 21:59 05:59 13:59 Intake Total 320 Output Total 2 2 Balance 318 -2 Weight 85.871 kg Albanian-speaking Mentation baseline Full assist ambulation Lower extremity erythema/lymphedema improving Intake & Output: Intake & Output 04/15/22 04/16/22 04/16/22 21:59 05:59 13:59 Intake Total 320 Output Total 2 2 Balance 318 -2 Weight 85.871 kg Intake: Oral 320 Output: # of times incontinent of urine 2 2 Other: Meal Dinner Percent of Meal Consumed 75% Feeding Ability Total Assistance Nourishment/Supplement name ensure Urine Appearance Clear Clear Clear Urine Color Dark Yellow Dark Yellow Dark Yellow Urine Odor Normal Stool Size Moderate Stool Color Brown Stool Consistency Soft # Voids 1 1 1 OBJ DATA Labs CBC & Chem 7: 04/16/22 05:50 04/16/22 05:49 Labs: Abnormal Lab Results 04/16/22 04/16/22 04/15/22 05:50 05:49 05:44 RBC 3.38 L Hgb 9.8 L Hct 29.6 L Immature Gran % (Auto) [place] % (Auto) 19.6 H Lymph # (Auto) 1.01 L [place] # (Auto) 1.15 H POC Sodium Sodium 120 L 118 L* POC Chloride Chloride 88 L 87 L Carbon Dioxide 21 L POC BUN Osmolality Calcium NT-Pro-B Natriuret Pep Total Protein 5.8 L Albumin 2.7 L Albumin/Globulin Ratio 0.9 L Urine Protein Urine Occult Blood 04/14/22 04/14/22 04/14/22 12:00 05:36 05:36 RBC 3.11 L Hgb 9.0 L Hct 27.5 L Immature Gran % (Auto) 0.7 H [place] % (Auto) 23.5 H Lymph # (Auto) 1.38 L [place] # (Auto) 1.44 H POC Sodium Sodium 116 L* POC Chloride Chloride 83 L Carbon Dioxide POC BUN Osmolality Calcium 8.5 L NT-Pro-B Natriuret Pep Total Protein Albumin Albumin/Globulin Ratio Urine Protein >=300 mg/dl A Urine Occult Blood Trace-intact A 04/13/22 04/13/22 04/13/22 23:45 22:17 22:04 RBC Hgb Hct Immature Gran % (Auto) [place] % (Auto) Lymph # (Auto) [place] # (Auto) POC Sodium Sodium 114 L* POC Chloride Chloride 80 L Carbon Dioxide POC BUN Osmolality 245 L Calcium NT-Pro-B Natriuret Pep 1534.0 H Total Protein Albumin Albumin/Globulin Ratio Urine Protein Urine Occult Blood 04/13/22 04/13/22 04/13/22 21:03 20:57 20:57 RBC Hgb 10.8 L Hct 31.2 L Immature Gran % (Auto) [place] % (Auto) 13.5 H Lymph # (Auto) 1.06 L [place] # (Auto) POC Sodium 116 L* Sodium 114 L* POC Chloride 82 L Chloride 78 L Carbon Dioxide POC BUN 21 H Osmolality Calcium NT-Pro-B Natriuret Pep Total Protein Albumin Albumin/Globulin Ratio Urine Protein Urine Occult Blood Meds: Medications Amoxicillin/Clavulanate Potassium (Amoxicillin/Potassium Clav 875 Mg Tablet) 875 mg PO [facility]; Protocol Last Admin: 04/16/22 08:26 Dose: 875 mg Docusate Sodium (Docusate Sodium 100 Mg Capsule) 100 mg PO BID [facility] Last Admin: 04/16/22 09:39 Dose: 100 mg Enoxaparin Sodium (Enoxaparin 40 Mg/0.4 Ml Syringe) 40 mg SQ DAILY [facility] Last Admin: 04/16/22 09:39 Dose: 40 mg Acetaminophen (Ofirmev) 1,000 mg in 100 mls @ 200 mls/hr IV PRN PRN; Protocol PRN Reason: Pain Last Infusion: 04/15/22 07:07 Dose: Infused Lactulose (Lactulose 20 Gm/30 Ml Oral.Kianna) 10 gm PO DAILYP PRN PRN Reason: Constipation Last Admin: 04/15/22 09:11 Dose: 10 gm Ondansetron HCl (Ondansetron 4 Mg/2 Ml Vial) 4 mg IV Q4HP PRN; Protocol PRN Reason: Nausea And Vomiting Polyethylene Glycol (Polyethylene Glycol 3350 17 Gm Packet) 17 gm PO HSP PRN PRN Reason: Constipation Last Admin: 04/15/22 21:44 Dose: 17 gm Quetiapine Fumarate (Quetiapine 25 Mg Tablet) 25 mg PO BID [facility] Last Admin: 04/16/22 09:39 Dose: 25 mg Senna (Sennosides 1 Tablet) 2 tab PO HSP PRN PRN Reason: Constipation Sodium Chloride (0.9 % Sodium Chloride 10 Ml Syringe) 10 ml IV Q8 [facility] Last Admin: 04/16/22 06:09 Dose: 10 ml Sodium Chloride (Sodium Chloride 1 Gm Tablet) 2 gm PO TID [facility] Last Admin: 04/16/22 09:39 Dose: 2 gm A/P Narrative A/P Narrative: * 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 On free water restriction/salt tabs * Acute encephalopathy secondary to hyponatremia/underlying dementia with psychosis. Clinically improving. Continue quetiapine for agitation control * Lower extremity cellulitis on Augmentin clinically improving * Hypothyroidism * Weakness/deconditioning high risk fall continue physical therapy/fall watch Plan * Continue salt tabs/free water restriction * Frequent reorientation/bright light/dementia care * PT OT/nutrition support * Discharge planning likely home in 24 to 48 hours Time Spent With Patient Time: Total time spent is greater than 50% in coordination of care (as documented) at patient's floor/unit and/or counseling patient: Total time spent with greater than 50% in coordination of care (as documented) at patient's floor/unit and/or counseling patient:: 25 - 35 minutes
[2022-04-16] MEDS: ACETAMINOPHEN 325 MG TABLET PO PRN (20:06)
[2022-04-16] MEDS: ARIPIPRAZOLE 5 MG TABLET PO SCH (20:06)
[2022-04-16] MEDS: DIVALPROEX 125 MG CAP.SPRINK PO SCH (20:06)
[2022-04-17] MEDS: ACETAMINOPHEN 325 MG TABLET PO PRN (03:57)
[2022-04-17] MEDS: 0.9 % SODIUM CHLORIDE 10 ML SYRINGE IV SCH ×3 (04:16→22:04)
[2022-04-17] MEDS: ENOXAPARIN 40 MG/0.4 ML SYRINGE SQ SCH (07:53)
[2022-04-17] MEDS: AMOXICILLIN/POTASSIUM CLAV 875 MG TABLET PO SCH (07:53)
[2022-04-17] MEDS: MULTIVIT,THER IRON,CA,FA & MIN 1 TABLET PO SCH (07:53)
[2022-04-17] MEDS: POLYETHYLENE GLYCOL 3350 17 GM PACKET PO SCH (07:53)
[2022-04-17] MEDS: DOCUSATE SODIUM 100 MG CAPSULE PO SCH ×2 (07:54→19:58)
[2022-04-17] MEDS: DIVALPROEX 125 MG CAP.SPRINK PO SCH ×2 (07:54→19:57)
[2022-04-17] MEDS: QUEtiapine 25 MG TABLET PO SCH ×2 (07:54→19:58)
[2022-04-17] MEDS: SODIUM CHLORIDE 1 GM TABLET PO SCH ×3 (07:55→19:57)
[2022-04-17] MEDS: LACTOBACILLUS 1 CAPSULE PO SCH (07:55)
[2022-04-17] MEDS: VITAMIN B COMPLEX 1 CAPSULE PO SCH (07:55)
[2022-04-17 07:57] LABS: Basophils # (Auto) 0.01 K/mcL (0.00-0.30); Basophils % (Auto) 0.1 % (0.0-2.0); Eosinophils # (Auto) 0.05 K/mcL (0.00-0.70); Eosinophils % (Auto) 0.7 % (0.0-7.0); Hematocrit 25.1 % (34.1-44.9); Hemoglobin 8.7 g/dL (11.2-15.7); Lymphocytes # (Auto) 1.25 K/mcL (1.50-4.80); Lymphocytes % (Auto) 17.2 % (15.5-49.0); Mean Cell Volume 86.3 fL (80.0-100.0); Mean Corpuscular HGB Conc 34.7 g/dL (31.0-36.0); Mean Platelet Volume 9.7 fL (7.4-10.4); Monocytes % (Auto) 16.5 % (1.0-12.0); Neutrophils % (Auto) 65.1 % (38.0-78.0); Platelet Count 212 K/mcL (140-440); RBC 2.91 M/mcL (3.59-5.38); Red Cell Distribution Width 14.5 % (11.5-14.5); WBC 7.3 K/mcL (4.5-11.0)
[2022-04-17 08:01] LABS: ALT/SGPT 7 U/L (<40); AST/SGOT 16 U/L (<32); Albumin 2.6 gm/dL (3.2-5.2); Albumin/Globulin Ratio 0.9 (1.0-2.3); Alkaline Phosphatase 55 U/L (39-117); Bilirubin,Direct < 0.2 mg/dL (0-0.3); Bilirubin,Total 0.3 mg/dL (0.1-1.0); Blood Urea Nitrogen 25 mg/dL (8-23); Calcium 8.3 mg/dL (8.6-10.4); Carbon Dioxide 24 mmol/L (22-30); Chloride 94 mmol/L (96-108); Globulin 2.9 gm/dL (2.2-3.7); Glomerular Filtration Rate 51; Glucose 105 mg/dL (70-105); Lactate Dehydrogenase 164 U/L (135-225); Phosphorous 3.7 mg/dL (2.5-4.5); Triglycerides 13 mg/dL (<150); Uric Acid 5.4 mg/dL (2.5-8.0)
--- NOTE | 2022-04-17 16:59 | Internal Med Progress Note ---
SUBJECTIVE Subjective Patient information: Note initiated : 04/17/22 at 4:56 pm Service Date, if different from initiated Date: [] Patient: Brandy Swanson 86 y/o F admitted on 04/13/22 for leg swelling. Chief Complaint: [] Principal diagnosis: Failure to thrive, fall, encephalopathy Interval history: The patient is being hospitalized for further management and evaluation of her toxic metabolic encephalopathy. This may be simply delirium upon dementia or may be exacerbated by her underlying hyponatremia. 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 She will be placed on 800 cc fluid restriction. We will follow her BMP, and may consider adding salt tabs. The patient's IV fluids have now been discontinued as there was no improvement. For her agitation, she has required IV Ativan and will be started on Seroquel 25 mg p.o. twice daily. She did have a fall at home. We will continue fall precautions per facility protocol. She may require a one-to-one sitter. Of note, she had a CT head and CT pelvis on arrival which was negative. We will check a urinalysis as this was not done, and will give an empiric dose of ceftriaxone. 04/15: The patient's hyponatremia is improving with fluid restriction. It is up to 118 today. We will start sodium tablets. There is a possibility that she may have cellulitis as her legs are erythematous and edematous and will start Augmentin. Her urine culture was negative for UTI. With the improvement of her electrolyte derangements and infectious process, the hope is that her mentation in turn improves. This however may be optimistic as she has advanced dementia and may require long-term care. Social work and case management will work on disposition. Continue Seroquel 25 mg p.o. twice daily 04/16-patient seen in room along with daughters. No overnight events. Sodium gradually improving. On free water restriction, salt tabs, family refusing options for placement and would like to take her home. Lower extreme cellulitis much improved. Tolerating diet. Ongoing therapies. Anticipate discharge in 2 4 to 48 hours pending clinical improvement. 04/17-patient doing well. Ongoing physical therapy, improving electrolytes with sodium up to 126, ongoing nutrition support. No overnight fever chills or concerns per staff. Anticipate discharge in 24 hours Home with family. Constitutional Vitals: Vital Signs Temp Pulse Resp BP Pulse Ox O2 Del Method O2 Flow Rate 99.0 F 82 20 119/58 96 0 04/17/22 11:52 04/17/22 11:52 04/17/22 11:52 04/17/22 11:52 04/17/22 11:52 04/17/22 07:21 04/15/22 04:01 Period Temp Pulse Resp BP Sys/Lubin Pulse Ox O2 Del Method O2 Flow Rate Last 24 Hr 98.7 F-100.3 F 74-95 16-20 113-139/54-66 91-97 Room Air-Room Air Intake and Output 04/17/22 04/17/22 04/17/22 05:59 13:59 21:59 Intake Total 100 480 Output Total 2 1 Balance 98 479 Mentation at baseline Alert and respond to commands [place]zeri-speaking Nonlabored breathing Intake & Output: Intake & Output 04/17/22 04/17/22 04/17/22 05:59 13:59 21:59 Intake Total 100 480 Output Total 2 1 Balance 98 479 Intake: Oral 100 480 Output: # of times incontinent of urine 2 1 Other: Meal Lunch Percent of Meal Consumed 100% Feeding Ability Total Assistance Urine Appearance Clear Urine Color Straw Urine Odor Normal Stool Size Smear # Bowel Movements 1 OBJ DATA Labs CBC & Chem 7: 04/17/22 06:55 04/17/22 06:55 Labs: Abnormal Lab Results 04/17/22 04/17/22 04/16/22 06:55 06:55 05:50 RBC 2.91 L 3.38 L Hgb 8.7 L 9.8 L Hct 25.1 L 29.6 L [place] % (Auto) 16.5 H 19.6 H Lymph # (Auto) 1.25 L 1.01 L [place] # (Auto) 1.20 H 1.15 H Sodium 126 L Chloride 94 L Carbon Dioxide BUN 25 H Calcium 8.3 L Total Protein 5.5 L Albumin 2.6 L Albumin/Globulin Ratio 0.9 L 04/16/22 04/15/22 05:49 05:44 RBC Hgb Hct [place] % (Auto) Lymph # (Auto) [place] # (Auto) Sodium 120 L 118 L* Chloride 88 L 87 L Carbon Dioxide 21 L BUN Calcium Total Protein 5.8 L Albumin 2.7 L Albumin/Globulin Ratio 0.9 L Meds: Medications Acetaminophen (Acetaminophen 325 Mg Tablet) 650 mg PO Q6HP PRN; Protocol PRN Reason: Per Pain Protocol Last Admin: 04/17/22 03:57 Dose: 650 mg Alendronate Sodium (Alendronate Sodium 70 Mg Tablet) 70 mg PO Mo@0730 [facility] Divalproex Sodium (Divalproex 125 Mg Cap.Sprink) 125 mg PO BID [facility] Last Admin: 04/17/22 07:54 Dose: 125 mg Docusate Sodium (Docusate Sodium 100 Mg Capsule) 100 mg PO BID [facility] Last Admin: 04/17/22 07:54 Dose: 100 mg Enoxaparin Sodium (Enoxaparin 40 Mg/0.4 Ml Syringe) 40 mg SQ DAILY [facility] Last Admin: 04/17/22 07:53 Dose: 40 mg Acetaminophen (Ofirmev) 1,000 mg in 100 mls @ 200 mls/hr IV PRN PRN; Protocol PRN Reason: Pain Last Infusion: 04/15/22 07:07 Dose: Infused Iron Carb/Multivit/Checkering Machine Operator/Folic Acid (Multivit,Ther Iron,Ca,Fa & Min 1 Tablet) 1 tab PO DAILY [facility] Last Admin: 04/17/22 07:53 Dose: 1 tab Lactobacillus Rhamnosus (Lactobacillus 1 Capsule) 1 cap PO QDAY [facility] Last Admin: 04/17/22 07:55 Dose: 1 cap Lactulose (Lactulose 20 Gm/30 Ml Oral.Kianna) 10 gm PO DAILYP PRN PRN Reason: Constipation Last Admin: 04/15/22 09:11 Dose: 10 gm Ondansetron HCl (Ondansetron 4 Mg/2 Ml Vial) 4 mg IV Q4HP PRN; Protocol PRN Reason: Nausea And Vomiting Polyethylene Glycol (Polyethylene Glycol 3350 17 Gm Packet) 17 gm PO HSP PRN PRN Reason: Constipation Last Admin: 04/15/22 21:44 Dose: 17 gm Polyethylene Glycol (Polyethylene Glycol 3350 17 Gm Packet) 17 gm PO QDAY [facility] Last Admin: 04/17/22 07:53 Dose: 17 gm Quetiapine Fumarate (Quetiapine 25 Mg Tablet) 25 mg PO BID [facility] Last Admin: 04/17/22 07:54 Dose: 25 mg Senna (Sennosides 1 Tablet) 2 tab PO HSP PRN PRN Reason: Constipation Sodium Chloride (0.9 % Sodium Chloride 10 Ml Syringe) 10 ml IV Q8 [facility] Last Admin: 04/17/22 15:20 Dose: 10 ml Sodium Chloride (Sodium Chloride 1 Gm Tablet) 2 gm PO TID [facility] Last Admin: 04/17/22 15:20 Dose: 2 gm Vitamin B Complex (Vitamin B Complex 1 Capsule) 1 cap PO DAILY [facility] Last Admin: 04/17/22 07:55 Dose: 1 cap A/P Narrative A/P Narrative: * 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 Sodium gradually improving from 10 18-10 29 today, continue on free water restriction/salt tabs 8 g per 24-hour * Acute encephalopathy secondary to hyponatremia/underlying dementia with psychosis. Clinically improving. Continue quetiapine/Depakote * Lower extremity cellulitis improved. Discontinue Augmentin * Weakness/deconditioning high risk fall -ongoing physical therapy. Plan * Continue salt tabs/free water restriction * Frequent reorientation/bright light/dementia care * PT OT/nutrition support * Discharge planning likely home in 24 hours once sodium around 130 Time Spent With Patient Time: Total time spent is greater than 50% in coordination of care (as documented) at patient's floor/unit and/or counseling patient:
[2022-04-17] MEDS: ARIPIPRAZOLE 5 MG TABLET PO SCH (19:58)
[2022-04-18] MEDS: 0.9 % SODIUM CHLORIDE 10 ML SYRINGE IV SCH ×3 (05:36→21:55)
[2022-04-18 06:51] LABS: Basophils # (Auto) 0.03 K/mcL (0.00-0.30); Basophils % (Auto) 0.4 % (0.0-2.0); Eosinophils # (Auto) 0.12 K/mcL (0.00-0.70); Eosinophils % (Auto) 1.5 % (0.0-7.0); Hematocrit 27.6 % (34.1-44.9); Hemoglobin 9.4 g/dL (11.2-15.7); Lymphocytes # (Auto) 1.58 K/mcL (1.50-4.80); Lymphocytes % (Auto) 19.8 % (15.5-49.0); Mean Cell Volume 87.9 fL (80.0-100.0); Mean Corpuscular HGB Conc 34.1 g/dL (31.0-36.0); Mean Platelet Volume 9.7 fL (7.4-10.4); Monocytes # (Auto) 1.19 K/mcL (0.10-0.90); Monocytes % (Auto) 14.9 % (1.0-12.0); Neutrophils % (Auto) 62.9 % (38.0-78.0); Platelet Count 240 K/mcL (140-440); RBC 3.14 M/mcL (3.59-5.38); Red Cell Distribution Width 14.8 % (11.5-14.5)
[2022-04-18 07:30] LABS: ALT/SGPT 9 U/L (<40); AST/SGOT 17 U/L (<32); Albumin/Globulin Ratio 0.9 (1.0-2.3); Alkaline Phosphatase 61 U/L (39-117); Bilirubin,Direct < 0.2 mg/dL (0-0.3); Bilirubin,Total 0.2 mg/dL (0.1-1.0); Blood Urea Nitrogen 37 mg/dL (8-23); Calcium 8.9 mg/dL (8.6-10.4); Carbon Dioxide 24 mmol/L (22-30); Chloride 95 mmol/L (96-108); Globulin 3.4 gm/dL (2.2-3.7); Glomerular Filtration Rate 45; Glucose 97 mg/dL (70-105); Lactate Dehydrogenase 176 U/L (135-225); Phosphorous 3.9 mg/dL (2.5-4.5); Triglycerides 21 mg/dL (<150); Uric Acid 5.1 mg/dL (2.5-8.0)
--- NOTE | 2022-04-18 08:13 | Discharge Summary ---
Discharge Provider Provider IMPORTANT FOLLOW-UP INFORMATION FOR PCP: Patient information: Note initiated : 04/18/22 at 8:11 am Service Date, if different from initiated Date: [] Patient: Brandy Swanson 86 y/o F admitted on 04/13/22 for leg swelling. 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 Sodium gradually improving from 115-130 , recommend continued salt tabs/free water restriction as outpatient * Acute encephalopathy secondary to hyponatremia/underlying dementia with psychosis. Resolved and now at baseline. Continue quetiapine/Depakote * Lower extremity cellulitis resolved * Weakness/deconditioning high risk fall -recommend continued PT and home health with Brief hospital course The patient is being hospitalized for further management and evaluation of her toxic metabolic encephalopathy. This may be simply delirium upon dementia or may be exacerbated by her underlying hyponatremia. 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 She will be placed on 800 cc fluid restriction. We will follow her BMP, and may consider adding salt tabs. The patient's IV fluids have now been discontinued as there was no improvement. For her agitation, she has required IV Ativan and will be started on Seroquel 25 mg p.o. twice daily. She did have a fall at home. We will continue fall precautions per facility protocol. She may require a one-to-one sitter. Of note, she had a CT head and CT pelvis on arrival which was negative. We will check a urinalysis as this was not done, and will give an empiric dose of ceftriaxone. 04/15: The patient's hyponatremia is improving with fluid restriction. It is up to 118 today. We will start sodium tablets. There is a possibility that she may have cellulitis as her legs are erythematous and edematous and will start Augmentin. Her urine culture was negative for UTI. With the improvement of her electrolyte derangements and infectious process, the hope is that her mentation in turn improves. This however may be optimistic as she has advanced dementia and may require long-term care. Social work and case management will work on disposition. Continue Seroquel 25 mg p.o. twice daily 04/16-patient seen in room along with daughters. No overnight events. Sodium gradually improving. On free water restriction, salt tabs, family refusing options for placement and would like to take her home. Lower extreme cellulitis much improved. Tolerating diet. Ongoing therapies. Anticipate discharge in 24 to 48 hours pending clinical improvement. 04/17-patient doing well. Ongoing physical therapy, improving electrolytes with sodium up to 126, ongoing nutrition support. No overnight fever chills or concerns per staff. Anticipate discharge in 24 hours Home with family. 04/18-patient doing well. Sodium improved to 130, per family patient is at baseline. No overnight fever chills or concerns per nursing staff. Ambulating with assistance, ongoing therapies, tolerating diet. Family wishes patient to be discharged home. Instructed to follow-up with primary care physician in 5 to 7 days Discharge diagnosis: Hyponatremia Time Spent with Patient Time attestation: Total time spent providing and/or coordinating discharge services: Time spent: Greater than 30 minutes EXAM Constitutional Vitals: Temp Pulse Resp BP Pulse Ox O2 Del Method O2 Flow Rate 98.7 F 82 18 152/67 97 0 04/18/22 07:47 04/18/22 07:47 04/18/22 07:47 04/18/22 07:47 04/18/22 07:47 04/18/22 07:47 04/15/22 04:01 Discharge Data Data Completed and Pending Labs on day of discharge: Labs from last 24 hours 04/18/22 04/18/22 05:58 05:58 WBC 8.0 RBC 3.14 L Hgb 9.4 L Hct 27.6 L MCV 87.9 MCH 29.9 MCHC 34.1 RDW 14.8 H Plt Count 240 MPV 9.7 Immature Gran % (Auto) 0.5 Neut % (Auto) 62.9 Lymph % (Auto) 19.8 [place] % (Auto) 14.9 H Eos % (Auto) 1.5 Baso % (Auto) 0.4 Lymph # (Auto) 1.58 [place] # (Auto) 1.19 H Eos # (Auto) 0.12 Baso # (Auto) 0.03 Immature Gran # 0.04 Absolute Neutrophils 5.08 Sodium 130 L Potassium 4.7 Chloride 95 L Carbon Dioxide 24 Anion Gap 11.0 BUN 37 H Creatinine 1.1 GFR Calculation 45 Glucose 97 Uric Acid 5.1 Calcium 8.9 Phosphorus 3.9 Magnesium 2.3 Total Bilirubin 0.2 Direct Bilirubin < 0.2 GGT 11 AST 17 ALT 9 Alkaline Phosphatase 61 Lactate Dehydrogenase 176 Total Protein 6.4 Albumin 3.0 L Globulin 3.4 Albumin/Globulin Ratio 0.9 L Triglycerides 21 Discharge Plan Patient/Caregiver Discharge Instructions Activity: increase activity as tolerated Diet: Regular Diet Activity Restrictions/Additional Instructions: Free water restriction to 1 L a day Continue salt tablets Regular diet Home health physical therapy Follow-up PCP in 5 to 7 days Prescriptions: New quetiapine 25 mg Tablet 25 mg PO BID Qty: 30 0RF Continued aripiprazole [Abilify] 5 mg tablet 5 mg PO QHS Qty: 30 0RF sodium chloride 1 gram tablet 1,000 mg PO QDAY Qty: 1 0RF alendronate 70 mg tablet 70 mg PO QWEEK Qty: 12 1RF divalproex [Depakote] 125 mg tablet,delayed release (DR/EC) 125 mg PO BID Qty: 60 1RF polyethylene glycol 3350 [Miralax] 17 gram/dose powder 17 g PO QDAY flaxseed oil 1,000 mg capsule 1,000 mg PO QDAY vitamin B complex tablet 1 tab-cap PO QDAY prenat.vits,jenna,tvn-gujp-vlrej tablet 1 tab PO QDAY lactobacillus combination no.8 3 billion cell capsule 3,000 mmu cells PO QDAY Follow Up Plan Follow up with: Ponce Renae MD [Primary Care Provider] - Patient Disposition: Home Health Service Prognosis: Critical Rehab Potential: Good I certify that the patient requires SNF services: No Overall status at discharge: patient is progressing back to baseline Discharge Orders: Discharge Order (Routine); Ordered 04/18/22 Ordered By: Maulik Degroot
[2022-04-18] MEDS: ENOXAPARIN 40 MG/0.4 ML SYRINGE SQ SCH (08:22)
[2022-04-18] MEDS: SODIUM CHLORIDE 1 GM TABLET PO SCH ×3 (08:22→22:33)
[2022-04-18] MEDS: MULTIVIT,THER IRON,CA,FA & MIN 1 TABLET PO SCH (08:22)
[2022-04-18] MEDS: DIVALPROEX 125 MG CAP.SPRINK PO SCH ×2 (08:22→22:35)
[2022-04-18] MEDS: LACTOBACILLUS 1 CAPSULE PO SCH (08:22)
[2022-04-18] MEDS: VITAMIN B COMPLEX 1 CAPSULE PO SCH (08:22)
[2022-04-18] MEDS: QUEtiapine 25 MG TABLET PO SCH ×2 (08:22→22:33)
[2022-04-18] MEDS: POLYETHYLENE GLYCOL 3350 17 GM PACKET PO SCH (08:23)
[2022-04-18] MEDS: DOCUSATE SODIUM 100 MG CAPSULE PO SCH ×2 (08:23→21:54)
--- NOTE | 2022-04-18 09:09 | Internal Med Progress Note ---
SUBJECTIVE Subjective Patient information: Note initiated : 04/18/22 at 9:04 am Service Date, if different from initiated Date: [] Patient: Brandy Swanson 86 y/o F admitted on 04/13/22 for leg swelling. Chief Complaint: [] Principal diagnosis: Failure to thrive, fall, encephalopathy Interval history: The patient is being hospitalized for further management and evaluation of her toxic metabolic encephalopathy. This may be simply delirium upon dementia or may be exacerbated by her underlying hyponatremia. 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 She will be placed on 800 cc fluid restriction. We will follow her BMP, and may consider adding salt tabs. The patient's IV fluids have now been discontinued as there was no improvement. For her agitation, she has required IV Ativan and will be started on Seroquel 25 mg p.o. twice daily. She did have a fall at home. We will continue fall precautions per facility protocol. She may require a one-to-one sitter. Of note, she had a CT head and CT pelvis on arrival which was negative. We will check a urinalysis as this was not done, and will give an empiric dose of ceftriaxone. 04/15: The patient's hyponatremia is improving with fluid restriction. It is up to 118 today. We will start sodium tablets. There is a possibility that she may have cellulitis as her legs are erythematous and edematous and will start Augmentin. Her urine culture was negative for UTI. With the improvement of her electrolyte derangements and infectious process, the hope is that her mentation in turn improves. This however may be optimistic as she has advanced dementia and may require long-term care. Social work and case management will work on disposition. Continue Seroquel 25 mg p.o. twice daily 04/16-patient seen in room along with daughters. No overnight events. Sodium gradually improving. On free water restriction, salt tabs, family refusing options for placement and would like to take her home. Lower extreme cellulitis much improved. Tolerating diet. Ongoing therapies. Anticipate discharge in 2 4 to 48 hours pending clinical improvement. 04/17-patient doing well. Ongoing physical therapy, improving electrolytes with sodium up to 126, ongoing nutrition support. No overnight fever chills or concerns per staff. Anticipate discharge in 24 hours Home with family. 04/18-patient doing well. Sodium improved to 130, per family patient is close to baseline but remains fairly weak and assistance with ADLs. No overnight fever chills or concerns per nursing staff. Ambulating with assistance, ongoing therapies, tolerating diet. Daughter expressed concern that patient requires 2- 3 person assist for transfer and therefore she would not able to take care of her at home, she would consider placement to SNF. Case management to coordinate. Patient will be kept hospitalized placement is available Constitutional Vitals: Vital Signs Temp Pulse Resp BP Pulse Ox O2 Del Method O2 Flow Rate 98.7 F 82 18 152/67 97 0 04/18/22 07:47 04/18/22 07:47 04/18/22 07:47 04/18/22 07:47 04/18/22 07:47 04/18/22 07:47 04/15/22 04:01 Period Temp Pulse Resp BP Sys/Lubin Pulse Ox O2 Del Method O2 Flow Rate Last 24 Hr 98.3 F-99.3 F 82-100 16-20 107-152/55-80 93-97 Room Air-Room Air Intake and Output 04/17/22 04/18/22 04/18/22 21:59 05:59 13:59 Intake Total 480 200 480 Output Total 1 3 200 Balance 479 197 280 Weight 83.189 kg Resting comfortably Nonlabored breathing No anxiety Intake & Output: Intake & Output 04/17/22 04/18/22 04/18/22 21:59 05:59 13:59 Intake Total 480 200 480 Output Total 1 3 200 Balance 479 197 280 Weight 83.189 kg Intake: Oral 480 200 GI Tube Flush 480 Output: # of times incontinent of urine 1 3 Urine/Stool Mix 200 Other: Meal Lunch Percent of Meal Consumed 100% Feeding Ability Total Assistance Urine Appearance Clear Clear Urine Color Straw Straw Urine Odor Normal Stool Size Smear Large Moderate Stool Color Brown Brown Stool Consistency Soft Soft Loose # Bowel Movements 1 1 OBJ DATA Labs CBC & Chem 7: 04/18/22 05:58 04/18/22 05:58 Labs: Abnormal Lab Results 04/18/22 04/18/22 04/17/22 05:58 05:58 06:55 RBC 3.14 L 2.91 L Hgb 9.4 L 8.7 L Hct 27.6 L 25.1 L RDW 14.8 H [place] % (Auto) 14.9 H 16.5 H Lymph # (Auto) 1.25 L [place] # (Auto) 1.19 H 1.20 H Sodium 130 L Chloride 95 L BUN 37 H Calcium Total Protein Albumin 3.0 L Albumin/Globulin Ratio 0.9 L 04/17/22 04/16/22 04/16/22 06:55 05:50 05:49 RBC 3.38 L Hgb 9.8 L Hct 29.6 L RDW [place] % (Auto) 19.6 H Lymph # (Auto) 1.01 L [place] # (Auto) 1.15 H Sodium 126 L 120 L Chloride 94 L 88 L BUN 25 H Calcium 8.3 L Total Protein 5.5 L 5.8 L Albumin 2.6 L 2.7 L Albumin/Globulin Ratio 0.9 L 0.9 L Meds: Medications Acetaminophen (Acetaminophen 325 Mg Tablet) 650 mg PO Q6HP PRN; Protocol PRN Reason: Per Pain Protocol Last Admin: 04/17/22 03:57 Dose: 650 mg Alendronate Sodium (Alendronate Sodium 70 Mg Tablet) 70 mg PO Mo@0730 [facility] Divalproex Sodium (Divalproex 125 Mg Cap.Sprink) 125 mg PO BID [facility] Last Admin: 04/18/22 08:22 Dose: 125 mg Docusate Sodium (Docusate Sodium 100 Mg Capsule) 100 mg PO BID [facility] Last Admin: 04/18/22 08:23 Dose: Not Given Enoxaparin Sodium (Enoxaparin 40 Mg/0.4 Ml Syringe) 40 mg SQ DAILY [facility] Last Admin: 04/18/22 08:22 Dose: 40 mg Acetaminophen (Ofirmev) 1,000 mg in 100 mls @ 200 mls/hr IV PRN PRN; Protocol PRN Reason: Pain Last Infusion: 04/15/22 07:07 Dose: Infused Iron Carb/Multivit/[place]/Folic Acid (Multivit,Ther Iron,Ca,Fa & Min 1 Tablet) 1 tab PO DAILY [facility] Last Admin: 04/18/22 08:22 Dose: 1 tab Lactobacillus Rhamnosus (Lactobacillus 1 Capsule) 1 cap PO QDAY [facility] Last Admin: 04/18/22 08:22 Dose: 1 cap Lactulose (Lactulose 20 Gm/30 Ml Oral.Kianna) 10 gm PO DAILYP PRN PRN Reason: Constipation Last Admin: 04/15/22 09:11 Dose: 10 gm Ondansetron HCl (Ondansetron 4 Mg/2 Ml Vial) 4 mg IV Q4HP PRN; Protocol PRN Reason: Nausea And Vomiting Polyethylene Glycol (Polyethylene Glycol 3350 17 Gm Packet) 17 gm PO HSP PRN PRN Reason: Constipation Last Admin: 04/15/22 21:44 Dose: 17 gm Polyethylene Glycol (Polyethylene Glycol 3350 17 Gm Packet) 17 gm PO QDAY [facility] Last Admin: 04/18/22 08:23 Dose: Not Given Quetiapine Fumarate (Quetiapine 25 Mg Tablet) 25 mg PO BID [facility] Last Admin: 04/18/22 08:22 Dose: 25 mg Senna (Sennosides 1 Tablet) 2 tab PO HSP PRN PRN Reason: Constipation Sodium Chloride (0.9 % Sodium Chloride 10 Ml Syringe) 10 ml IV Q8 [facility] Last Admin: 04/18/22 05:36 Dose: Not Given Sodium Chloride (Sodium Chloride 1 Gm Tablet) 2 gm PO TID [facility] Last Admin: 04/18/22 08:22 Dose: 2 gm Vitamin B Complex (Vitamin B Complex 1 Capsule) 1 cap PO DAILY [facility] Last Admin: 04/18/22 08:22 Dose: 1 cap A/P Narrative A/P Narrative: * 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 Sodium gradually improving to 130 today, managed on free water restriction/salt tabs 8 g per 24-hour * Acute encephalopathy secondary to hyponatremia/underlying dementia with psychosis. Clinically stable. Continue quetiapine/Depakote * Lower extremity cellulitis improved. Discontinue Augmentin * Weakness/deconditioning high risk fall -ongoing physical therapy. Plan * Continue salt tabs/free water restriction * PT OT/nutrition support * Family now wishes SNF placement due to increasing patient's needs for ADLs and two-person transfer assist Time Spent With Patient Time: Total time spent is greater than 50% in coordination of care (as documented) at patient's floor/unit and/or counseling patient: Total time spent with greater than 50% in coordination of care (as documented) at patient's floor/unit and/or counseling patient:: 25 - 35 minutes
[2022-04-18] MEDS: ARIPIPRAZOLE 5 MG TABLET PO SCH (22:35)
[2022-04-19] MEDS: 0.9 % SODIUM CHLORIDE 10 ML SYRINGE IV SCH ×3 (05:44→23:17)
[2022-04-19 06:35] LABS: Basophils # (Auto) 0.03 K/mcL (0.00-0.30); Basophils % (Auto) 0.5 % (0.0-2.0); Eosinophils # (Auto) 0.22 K/mcL (0.00-0.70); Eosinophils % (Auto) 3.4 % (0.0-7.0); Hematocrit 28.1 % (34.1-44.9); Hemoglobin 9.3 g/dL (11.2-15.7); Lymphocytes % (Auto) 21.8 % (15.5-49.0); Mean Cell Volume 88.9 fL (80.0-100.0); Mean Corpuscular HGB Conc 33.1 g/dL (31.0-36.0); Mean Platelet Volume 9.7 fL (7.4-10.4); Neutrophils % (Auto) 59.8 % (38.0-78.0); Platelet Count 262 K/mcL (140-440); RBC 3.16 M/mcL (3.59-5.38); Red Cell Distribution Width 14.8 % (11.5-14.5); WBC 6.4 K/mcL (4.5-11.0)
[2022-04-19 06:56] LABS: ALT/SGPT 8 U/L (<40); AST/SGOT 17 U/L (<32); Albumin 2.9 gm/dL (3.2-5.2); Albumin/Globulin Ratio 0.9 (1.0-2.3); Alkaline Phosphatase 58 U/L (39-117); Bilirubin,Direct < 0.2 mg/dL (0-0.3); Bilirubin,Total 0.2 mg/dL (0.1-1.0); Blood Urea Nitrogen 37 mg/dL (8-23); Calcium 8.9 mg/dL (8.6-10.4); Carbon Dioxide 24 mmol/L (22-30); Chloride 97 mmol/L (96-108); Globulin 3.3 gm/dL (2.2-3.7); Glomerular Filtration Rate 51; Glucose 97 mg/dL (70-105); Lactate Dehydrogenase 177 U/L (135-225); Phosphorous 4.1 mg/dL (2.5-4.5); Triglycerides 20 mg/dL (<150); Uric Acid 5.3 mg/dL (2.5-8.0)
[2022-04-19] MEDS: ENOXAPARIN 40 MG/0.4 ML SYRINGE SQ SCH (08:51)
[2022-04-19] MEDS: DIVALPROEX 125 MG CAP.SPRINK PO SCH ×2 (08:52→19:16)
[2022-04-19] MEDS: DOCUSATE SODIUM 100 MG CAPSULE PO SCH ×2 (08:52→19:30)
[2022-04-19] MEDS: LACTOBACILLUS 1 CAPSULE PO SCH (08:52)
[2022-04-19] MEDS: VITAMIN B COMPLEX 1 CAPSULE PO SCH (08:52)
[2022-04-19] MEDS: QUEtiapine 25 MG TABLET PO SCH ×2 (08:52→19:16)
[2022-04-19] MEDS: SODIUM CHLORIDE 1 GM TABLET PO SCH ×3 (08:52→19:16)
[2022-04-19] MEDS: POLYETHYLENE GLYCOL 3350 17 GM PACKET PO SCH (08:52)
[2022-04-19] MEDS: MULTIVIT,THER IRON,CA,FA & MIN 1 TABLET PO SCH (08:52)
--- NOTE | 2022-04-19 09:12 | Internal Med Progress Note ---
SUBJECTIVE Subjective Patient information: Note initiated : 04/19/22 at 9:10 am Service Date, if different from initiated Date: [] Patient: Brandy Swanson 86 y/o F admitted on 04/13/22 for leg swelling. Chief Complaint: [ALOC] Principal diagnosis: Failure to thrive, fall, encephalopathy Interval history: Since I saw the patient last, she is doing much better. RN was present at the bedside to discuss plan of care as was the daughter. Constitutional Vitals: Vital Signs Temp Pulse Resp BP Pulse Ox O2 Del Method O2 Flow Rate 98.1 F 86 16 119/59 96 0 04/19/22 04:00 04/19/22 04:00 04/19/22 04:00 04/19/22 04:00 04/19/22 04:00 04/19/22 04:00 04/15/22 04:01 Period Temp Pulse Resp BP Sys/Lubin Pulse Ox O2 Del Method O2 Flow Rate Last 24 Hr 97.5 F-99.1 F 85-92 16-20 102-142/48-59 95-97 Room Air-Room Air Intake and Output 04/18/22 04/19/22 04/19/22 21:59 05:59 13:59 Intake Total 237 150 Output Total 3 1 Balance 234 149 Weight 92.986 kg Intake & Output: Intake & Output 04/18/22 04/19/22 04/19/22 21:59 05:59 13:59 Intake Total 237 150 Output Total 3 1 Balance 234 149 Weight 92.986 kg Intake: Nourishment/Supplement quantity 237 (ml) Oral 150 Output: # of times incontinent of urine 3 1 Other: Meal Dinner Feeding Ability Needs Supervision Nourishment/Supplement name Ensure # Bowel Movements 0 # of times incontinent of 0 Bowels Head Head exam: Present atraumatic and normal inspection Eye Eye exam: Present normal appearance ENT ENT exam: Present mucous membranes moist, normal exam and normal external ear exam Neck Neck exam: Present normal inspection Respiratory Respiratory exam: Present normal respiratory exam Cardiovascular Cardiovascular exam: Present normal rate and rhythm GI/Abdominal GI/Abdominal exam: Present normal bowel sounds Back Exam Back exam: Present normal inspection Neurological Exam Neurological exam: Present alert Skin Skin exam: Present intact and warm OBJ DATA Labs CBC & Chem 7: 04/19/22 05:27 04/19/22 05:27 Labs: Abnormal Lab Results 04/19/22 04/19/22 04/18/22 05:27 05:27 05:58 RBC 3.16 L 3.14 L Hgb 9.3 L 9.4 L Hct 28.1 L 27.6 L RDW 14.8 H 14.8 H [place] % (Auto) 14.0 H 14.9 H Lymph # (Auto) 1.40 L [place] # (Auto) 1.19 H Sodium 131 L Chloride BUN 37 H Calcium Total Protein Albumin 2.9 L Albumin/Globulin Ratio 0.9 L 04/18/22 04/17/22 04/17/22 05:58 06:55 06:55 RBC 2.91 L Hgb 8.7 L Hct 25.1 L RDW [place] % (Auto) 16.5 H Lymph # (Auto) 1.25 L [place] # (Auto) 1.20 H Sodium 130 L 126 L Chloride 95 L 94 L BUN 37 H 25 H Calcium 8.3 L Total Protein 5.5 L Albumin 3.0 L 2.6 L Albumin/Globulin Ratio 0.9 L 0.9 L Meds: Medications Acetaminophen (Acetaminophen 325 Mg Tablet) 650 mg PO Q6HP PRN; Protocol PRN Reason: Per Pain Protocol Last Admin: 04/17/22 03:57 Dose: 650 mg Alendronate Sodium (Alendronate Sodium 70 Mg Tablet) 70 mg PO Mo@0730 [facility] Divalproex Sodium (Divalproex 125 Mg Cap.Sprink) 125 mg PO BID [facility] Last Admin: 04/19/22 08:52 Dose: 125 mg Docusate Sodium (Docusate Sodium 100 Mg Capsule) 100 mg PO BID [facility] Last Admin: 04/19/22 08:52 Dose: 100 mg Enoxaparin Sodium (Enoxaparin 40 Mg/0.4 Ml Syringe) 40 mg SQ DAILY [facility] Last Admin: 04/19/22 08:51 Dose: 40 mg Acetaminophen (Ofirmev) 1,000 mg in 100 mls @ 200 mls/hr IV PRN PRN; Protocol PRN Reason: Pain Last Infusion: 04/15/22 07:07 Dose: Infused Iron Carb/Multivit/[employer]/Folic Acid (Multivit,Ther Iron,Ca,Fa & Min 1 Tablet) 1 tab PO DAILY [facility] Last Admin: 04/19/22 08:52 Dose: 1 tab Lactobacillus Rhamnosus (Lactobacillus 1 Capsule) 1 cap PO QDAY [facility] Last Admin: 04/19/22 08:52 Dose: 1 cap Lactulose (Lactulose 20 Gm/30 Ml Oral.Kianna) 10 gm PO DAILYP PRN PRN Reason: Constipation Last Admin: 04/15/22 09:11 Dose: 10 gm Ondansetron HCl (Ondansetron 4 Mg/2 Ml Vial) 4 mg IV Q4HP PRN; Protocol PRN Reason: Nausea And Vomiting Polyethylene Glycol (Polyethylene Glycol 3350 17 Gm Packet) 17 gm PO HSP PRN PRN Reason: Constipation Last Admin: 04/15/22 21:44 Dose: 17 gm Polyethylene Glycol (Polyethylene Glycol 3350 17 Gm Packet) 17 gm PO QDAY [facility] Last Admin: 04/19/22 08:52 Dose: 17 gm Quetiapine Fumarate (Quetiapine 25 Mg Tablet) 25 mg PO BID [facility] Last Admin: 04/19/22 08:52 Dose: 25 mg Senna (Sennosides 1 Tablet) 2 tab PO HSP PRN PRN Reason: Constipation Sodium Chloride (0.9 % Sodium Chloride 10 Ml Syringe) 10 ml IV Q8 [facility] Last Admin: 04/19/22 05:44 Dose: Not Given Sodium Chloride (Sodium Chloride 1 Gm Tablet) 1 gm PO TID [facility] Last Admin: 04/19/22 08:52 Dose: 1 gm Vitamin B Complex (Vitamin B Complex 1 Capsule) 1 cap PO DAILY [facility] Last Admin: 04/19/22 08:52 Dose: 1 cap A/P Assessment and plan (1) Toxic metabolic encephalopathy: Status: Acute (2) Acute hyponatremia: Status: Acute (3) Dementia: Status: Acute (4) Leg edema: Status: Acute (5) Fall: Status: Acute (6) Hypothyroidism: Status: Chronic (7) Obesity: Status: Chronic Narrative A/P Narrative: * 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 Sodium gradually improving to 130 today, managed on free water restriction/salt tabs 8 g per 24-hour * Acute encephalopathy secondary to hyponatremia/underlying dementia with psychosis. Clinically stable. Continue quetiapine/Depakote * Lower extremity cellulitis improved. Discontinue Augmentin * Weakness/deconditioning high risk fall -ongoing physical therapy. Plan * Continue salt tabs/free water restriction * PT OT/nutrition support * Family now wishes SNF placement due to increasing patient's needs for ADLs and two-person transfer assist The patient is being hospitalized for further management and evaluation of her toxic metabolic encephalopathy. This may be simply delirium upon dementia or may be exacerbated by her underlying hyponatremia. 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 She will be placed on 800 cc fluid restriction. We will follow her BMP, and may consider adding salt tabs. The patient's IV fluids have now been discontinued as there was no improvement. For her agitation, she has required IV Ativan and will be started on Seroquel 25 mg p.o. twice daily. She did have a fall at home. We will continue fall precautions per facility protocol. She may require a one-to-one sitter. Of note, she had a CT head and CT pelvis on arrival which was negative. We will check a urinalysis as this was not done, and will give an empiric dose of ceftriaxone. 04/15: The patient's hyponatremia is improving with fluid restriction. It is up to 118 today. We will start sodium tablets. There is a possibility that she may have cellulitis as her legs are erythematous and edematous and will start Augmentin. Her urine culture was negative for UTI. With the improvement of her electrolyte derangements and infectious process, the hope is that her mentation in turn improves. This however may be optimistic as she has advanced dementia and may require long-term care. Social work and case management will work on disposition. Continue Seroquel 25 mg p.o. twice daily. 04/16-patient seen in room along with daughters. No overnight events. Sodium gradually improving. On free water restriction, salt tabs, family refusing op tions for placement and would like to take her home. Lower extreme cellulitis much improved. Tolerating diet. Ongoing therapies. Anticipate discharge in 24 to 48 hours pending clinical improvement. 04/17-patient doing well. Ongoing physical therapy, improving electrolytes with sodium up to 126, ongoing nutrition support. No overnight fever chills or concerns per staff. Anticipate discharge in 24 hours Home with family. 04/18-patient doing well. Sodium improved to 130, per family patient is close to baseline but remains fairly weak and assistance with ADLs. No overnight fever chills or concerns per nursing staff. Ambulating with assistance, ongoing therapies, tolerating diet. Daughter expressed concern that patient requires 2- 3 person assist for transfer and therefore she would not able to take care of her at home, she would consider placement to SNF. Case management to floresita pisano. Patient will be kept hospitalized placement is available 04/19: Sodium is now 131. Sodium tablets will be decreased to 1 tab 3 times daily. Augmentin has now been discontinued as her cellulitis has resolved. We are currently looking for placement. Continue Seroquel and Depakote for deliri um upon dementia. Time Spent With Patient Time: Total time spent is greater than 50% in coordination of care (as documented) at patient's floor/unit and/or counseling patient: Total time spent with greater than 50% in coordination of care (as documented) at patient's floor/unit and/or counseling patient:: 35 - 50 minutes
[2022-04-19] MEDS: ARIPIPRAZOLE 5 MG TABLET PO SCH (19:16)
[2022-04-20] MEDS: 0.9 % SODIUM CHLORIDE 10 ML SYRINGE IV SCH ×2 (06:36→14:17)
[2022-04-20 06:44] LABS: Basophils # (Auto) 0.03 K/mcL (0.00-0.30); Basophils % (Auto) 0.7 % (0.0-2.0); Eosinophils # (Auto) 0.24 K/mcL (0.00-0.70); Eosinophils % (Auto) 5.4 % (0.0-7.0); Hematocrit 27.9 % (34.1-44.9); Hemoglobin 8.9 g/dL (11.2-15.7); Lymphocytes # (Auto) 1.46 K/mcL (1.50-4.80); Lymphocytes % (Auto) 32.7 % (15.5-49.0); Mean Cell Volume 91.5 fL (80.0-100.0); Mean Corpuscular HGB Conc 31.9 g/dL (31.0-36.0); Mean Platelet Volume 9.4 fL (7.4-10.4); Monocytes % (Auto) 15.7 % (1.0-12.0); Neutrophils % (Auto) 45.1 % (38.0-78.0); Platelet Count 270 K/mcL (140-440); RBC 3.05 M/mcL (3.59-5.38); Red Cell Distribution Width 14.9 % (11.5-14.5); WBC 4.5 K/mcL (4.5-11.0)
[2022-04-20] MEDS: SODIUM CHLORIDE 1 GM TABLET PO SCH ×2 (07:23→14:17)
[2022-04-20] MEDS: DOCUSATE SODIUM 100 MG CAPSULE PO SCH (07:24)
[2022-04-20] MEDS: MULTIVIT,THER IRON,CA,FA & MIN 1 TABLET PO SCH (07:24)
[2022-04-20] MEDS: VITAMIN B COMPLEX 1 CAPSULE PO SCH (07:25)
[2022-04-20] MEDS: LACTOBACILLUS 1 CAPSULE PO SCH (07:25)
[2022-04-20] MEDS: QUEtiapine 25 MG TABLET PO SCH (07:25)
[2022-04-20] MEDS: POLYETHYLENE GLYCOL 3350 17 GM PACKET PO SCH (07:26)
[2022-04-20] MEDS: DIVALPROEX 125 MG CAP.SPRINK PO SCH (07:26)
[2022-04-20] MEDS: ENOXAPARIN 40 MG/0.4 ML SYRINGE SQ SCH (07:26)
[2022-04-20] MEDS ORDERED: ALENDRONATE SODIUM 70 MG TABLET PO SCH (07:30)
--- NOTE | 2022-04-20 10:14 | Discharge Summary ---
Discharge Provider Provider IMPORTANT FOLLOW-UP INFORMATION FOR PCP: 1. Follow up BMP 2. Consider stopping salt tabs Patient information: Note initiated : 04/20/22 at 10:11 am Service Date, if different from initiated Date: [] Patient: Brandy Swanson 86 y/o F admitted on 04/13/22 for leg swelling. 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 Sodium gradually improving to 130 today, managed on free water restriction/salt tabs 8 g per 24-hour * Acute encephalopathy secondary to hyponatremia/underlying dementia with psychosis. Clinically stable. Continue quetiapine/Depakote * Lower extremity cellulitis improved. Discontinue Augmentin * Weakness/deconditioning high risk fall -ongoing physical therapy.Plan * Continue salt tabs/free water restriction * PT OT/nutrition support * Family wishes SNF placement due to increasing patient's needs for ADLs and two-person transfer assist-> Home health instead now The patient is being hospitalized for further management and evaluation of her toxic metabolic encephalopathy. This may be simply delirium upon dementia or may be exacerbated by her underlying hyponatremia. 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 She will be placed on 800 cc fluid restriction. We will follow her BMP, and may consider adding salt tabs. The patient's IV fluids have now been discontinued as there was no improvement. For her agitation, she has required IV Ativan and will be started on Seroquel 25 mg p.o. twice daily. She did have a fall at home. We will continue fall precautions per facility protocol. She may require a one-to-one sitter. Of note, she had a CT head and CT pelvis on arrival which was negative. We will check a urinalysis as this was not done, and will give an empiric dose of ceftriaxone. 04/15: The patient's hyponatremia is improving with fluid restriction. It is up to 118 today. We will start sodium tablets. There is a possibility that she may have cellulitis as her legs are erythematous and edematous and will start Au gmentin. Her urine culture was negative for UTI. With the improvement of her electrolyte derangements and infectious process, the hope is that her mentation in turn improves. This however may be optimistic as she has advanced dementia and may require long-term care. Social work and case management will work on disposition. Continue Seroquel 25 mg p.o. twice daily. 04/16-patient seen in room along with daughters. No overnight events. Sodium gradually improving. On free water restriction, salt tabs, family refusing options for placement and would like to take her home. Lower extreme cellulitis much improved. Tolerating diet. Ongoing therapies. Anticipate discharge in 24 to 48 hours pending clinical improvement. 04/17-patient doing well. Ongoing physical therapy, improving electrolytes with sodium up to 126, ongoing nutrition support. No overnight fever chills or concerns per staff. Anticipate discharge in 24 hours Home with family. 04/18-patient doing well. Sodium improved to 130, per family patient is close to baseline but remains fairly weak and assistance with ADLs. No overnight fever chills or concerns per nursing staff. Ambulating with assistance, ongoing thera pies, tolerating diet. Daughter expressed concern that patient requires 2-3 person assist for transfer and therefore she would not able to take care of her at home, she would consider placement to SNF. Case management to coordinate. Patient will be kept hospitalized placement is available 04/19: Sodium is now 131. Sodium tablets will be decreased to 1 tab 3 times daily. Augmentin has now been discontinued as her cellulitis has resolved. We are currently looking for placement. Continue Seroquel and Depakote for delirium upon dementia. 04/20: With the improvement of the patient's underlying infectious process due to cellulitis and the improvement of her severe hyponatremia due to SIADH, her mental status has significantly improved. She will be discharged on Seroquel and will continue sodium tablets until she follows up with her primary care physician. The daughter wishes to take her mother home with home health and family support. She will be discharged today. Discharge diagnosis: Toxic metabolic encephalopathy, hyponatremia, cellulitis, dementia Reason for admission: Altered sensorium Time Spent with Patient Time attestation: Total time spent providing and/or coordinating discharge services: Time spent: Greater than 30 minutes EXAM Constitutional Vitals: Temp Pulse Resp BP Pulse Ox O2 Del Method O2 Flow Rate 97.4 F 72 18 136/81 95 0 04/20/22 07:43 04/20/22 07:43 04/20/22 07:43 04/20/22 07:43 04/20/22 07:43 04/20/22 07:44 04/15/22 04:01 General appearance: average body habitus Head Head exam: Present atraumatic, normal inspection and normocephalic Eye Eye exam: Present EOMI, normal appearance and PERRL; Absent conjunctival injection ENT ENT exam: Present normal exam; Absent mucous membranes dry Neck Neck exam: Present full ROM; Absent lymphadenopathy Respiratory Respiratory exam: Present normal respiratory exam and CTAB; Absent decreased breath sounds, respiratory distress or wheezes Cardiovascular Cardiovascular exam: Present normal rate and rhythm and RRR; Absent JVD GI/Abdominal GI/Abdominal exam: Present normal bowel sounds and soft; Absent diminished bowel sounds, distended, guarding, mass, rebound or tenderness Neurological Exam Neurological exam: Present alert Psychiatric Psychiatric exam: Present normal affect and normal mood Skin Skin exam: Present intact and warm; Absent erythema, pallor, petechiae or rash Discharge Data Data Completed and Pending Labs on day of discharge: Labs from last 24 hours 04/20/22 05:53 WBC 4.5 RBC 3.05 L Hgb 8.9 L Hct 27.9 L MCV 91.5 MCH 29.2 MCHC 31.9 RDW 14.9 H Plt Count 270 MPV 9.4 Immature Gran % (Auto) 0.4 Neut % (Auto) 45.1 Lymph % (Auto) 32.7 [place] % (Auto) 15.7 H Eos % (Auto) 5.4 Baso % (Auto) 0.7 Lymph # (Auto) 1.46 L [place] # (Auto) 0.70 Eos # (Auto) 0.24 Baso # (Auto) 0.03 Immature Gran # 0.02 Absolute Neutrophils 2.03 Discharge Plan Patient/Caregiver Discharge Instructions Activity: increase activity as tolerated Diet: Regular Diet Activity Restrictions/Additional Instructions: Free water restriction to 1 L a day Continue salt tablets Regular diet Home health physical therapy Follow-up PCP in 5 to 7 days Prescriptions: New quetiapine 25 mg Tablet 25 mg PO BID Qty: 30 0RF sodium chloride 1,000 mg Tablet,Soluble 1 gm PO TID 7 Days Qty: 21 0RF Continued aripiprazole [Abilify] 5 mg tablet 5 mg PO QHS Qty: 30 0RF sodium chloride 1 gram tablet 1,000 mg PO QDAY Qty: 1 0RF alendronate 70 mg tablet 70 mg PO QWEEK Qty: 12 1RF divalproex [Depakote] 125 mg tablet,delayed release (DR/EC) 125 mg PO BID Qty: 60 1RF polyethylene glycol 3350 [Miralax] 17 gram/dose powder 17 g PO QDAY flaxseed oil 1,000 mg capsule 1,000 mg PO QDAY vitamin B complex tablet 1 tab-cap PO QDAY prenat.vits,jenna,kyj-rvrx-nzhag tablet 1 tab PO QDAY lactobacillus combination no.8 3 billion cell capsule 3,000 mmu cells PO QDAY Follow Up Plan Follow up with: Ponce Renae MD [Primary Care Provider] - Patient Disposition: Home Health Service Prognosis: Critical Rehab Potential: Good I certify that the patient requires SNF services: No Overall status at discharge: patient is progressing back to baseline Discharge Orders: Discharge Order (Routine); Ordered 04/20/22 Ordered By: Ame Sarmiento
== END 2022-04-20 14:21 | disposition home health service (06) | DRG 643 ==
LOC: ED 20:14 → ICU 23:22 → MEDSUR 04-16 16:28
PROVIDERS: ADMIT Student in an Organized Health Care Education/Training Program; ATTEND Student in an Organized Health Care Education/Training Program

== ENCOUNTER 2022-05-12 17:32 | Inpatient (IN) ==
[2022-05-12] MEDS ORDERED: IOPAMIDOL 100 ML BOTTLE IV ONE (17:33)
[2022-05-12] MEDS ORDERED: 0.9 % SODIUM CHLORIDE 1,000 ML IV ONE ×2 (17:38→18:54)
--- NOTE | 2022-05-12 17:59 | Emergency Department Note ---
Weakness HPI General Chief complaint: Weakness Stated complaint: weakness Time Seen by Provider: 05/12/22 17:34 Source: family Mode of arrival: wheelchair Limitations: language barrier History of Present Illness HPI Narrative: Narrative: Family presents to ED with patient's with concerns that the patient has been w eak all day. States she has been very lethargic. Normally she ambulates around the house but today she just laid in bed. They states that she is more agitated and does not really want to talk. She is eating very little food or had fluid intake. They states that she did have a little bit of milk and putting but then she threw it all up. States that she was afebrile at home. Patient does not speak any Bahamian all history is obtained from the family. The family denies cardiac chest pain, shortness of breath, cough, sputum production, loss of motor function of her extremities, abdominal pain, diarrhea, constipation. Denies any tupa-xob-cxhqhet medication. They deny any other alleviating or aggravating factors. Related Data Home Medications Medication Instructions Recorded Confirmed flaxseed oil 1,000 mg capsule 1,000 mg PO QDAY 09/03/15 04/29/22 lactobacillus combination no.8 3 3,000 mmu cells PO QDAY 09/03/15 04/29/22 billion cell capsule prenat.vits,jenna,odp-hoko-cprcs 1 tab PO QDAY 09/03/15 04/29/22 vitamin B complex 1 tab-cap PO QDAY 09/03/15 04/29/22 polyethylene glycol 3350 17 17 g PO QDAY 07/19/20 04/29/22 gram/dose oral powder (Miralax) Previous Rx's Medication Instructions Recorded sodium chloride 1 gram tablet 1,000 mg PO QDAY #1 tab 11/09/19 alendronate 70 mg tablet 70 mg PO QWEEK #12 tabs 01/15/22 aripiprazole 5 mg tablet (Abilify) 5 mg PO QHS #30 tabs 04/10/22 quetiapine 25 mg tablet 25 mg PO BID #30 tabs 04/18/22 divalproex 125 mg tablet,delayed 125 mg PO BID #60 tabs 04/23/22 release (Depakote) clobetasol 0.05 % topical cream 1 applic topical BID 2 weeks #30 04/29/22 grams clonazepam 0.5 mg tablet 0.5 mg PO BID PRN anxiety #30 tabs 04/29/22 torsemide 10 mg tablet 10 mg PO QAM #90 tabs 04/29/22 urea 15 gram oral powder packet 0.5 packet PO QDAY #16 ea 04/30/22 (Ure-Na) levothyroxine 50 mcg tablet 50 mcg PO QDAY #30 tabs 05/12/22 Allergies Allergy/AdvReac Type Severity Reaction Status Date / Time No Known Drug Allergies Allergy Verified 05/12/22 17:33 Review of Systems ROS ROS Narrative: Narrative: All systems ED: reviewed and negative except as stated. 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, unspecified portion (Chronic) Constipation (Chronic) Depression (Chronic) Gastroesophageal reflux (Chronic) Hallux valgus (Chronic 09/13/14) Hyposmolality and/or hyponatremia (Chronic 10/29/14) Hypothyroidism (Chronic) Memory loss (Chronic) Obesity (Chronic) Osteoarthritis, multiple sites (Chronic) Osteoarthritis, lower leg, localized (Chronic) Hemorrhoids (Chronic 08/23/15) Adenomatous colon polyp (Chronic) Carcinoid tumor (Chronic) Infection of nailbed of toe of left foot (Acute) Encounter for Medicare annual wellness exam (Chronic) Urinary tract infection (Acute) Dysuria (Acute) Effusion, right shoulder (Acute) Pain due to dental caries (Acute) Cough (Acute) Distal radial fracture (Acute) Fall from slip, trip, or stumble (Acute) Pain, dental (Acute) Abscess, dental (Acute) SBO (small bowel obstruction) (Acute) Acute hyponatremia (Acute) Urinary retention (Acute) Partial small bowel obstruction (Acute) Volume depletion, gastrointestinal loss (Acute) Postoperative ileus (Acute) Elevated troponin (Acute) Anemia (Acute) Hyponatremia (Acute) Medicare annual wellness visit, initial (Acute) Urge incontinence (Acute) Urge incontinence (Acute) Annual physical exam (Acute) Dementia (Acute) Agitation due to dementia (Acute) Insomnia (Acute) Contusion of right foot (Acute) Bilateral leg edema (Acute) Bilateral leg edema (Acute) UTI (urinary tract infection) (Acute) Generalized anxiety disorder (Acute) Cognitive and behavioral changes (Acute) Mood changes (Acute) Venous insufficiency (Acute) OCD (obsessive compulsive disorder) (Acute) Insomnia (Acute) AMS (altered mental status) (Acute) Acute hyponatremia (Acute) Leg edema (Acute) Toxic metabolic encephalopathy (Acute) Fall (Acute) Hypertension (Acute) Stasis dermatitis of both legs (Acute) Medical History Abdominal pain Abnormal glucose Adenomatous colon polyp Agitation due to dementia Anemia Annual physical exam Anxiety Atrophic vaginitis Back pain 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 Chronic interstitial cystitis (05/26/11) Colon polyp, hyperplastic (08/23/15) Constipation Dementia Depression PHQ 9 is 5, cut back dose of citalopram to 10mg qd. Diverticulitis of colon Diverticulosis Dysuria Elevated troponin Encounter for Medicare annual wellness exam Gastroesophageal reflux Hallux valgus (09/13/14) Dr. Mcdonough Hematuria (12/05/14) Hemorrhoids (08/23/15) Colonoscopy with polypectomy done, lower GI bleed resolved. Herpes zoster (12/05/14) History of hepatitis A hx of Hep A in 20's History of lymphoid leukemia Hyponatremia Hyposmolality and/or hyponatremia (10/29/14) Hypothyroidism Infection of nailbed of toe of left foot Insomnia Leukopenia (12/20/14) Lower gastrointestinal hemorrhage Likely int hemorrhois vs diverticular bleed, rx with hydrocortisonecream, h/h inr stable Urgent referral to GI given h/o TA in past, as well as carcinoid tumor. 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 History of carcinoid tumor in small bowel resected 10/2011 History of abdominal surgery Abdominal hernia repair History of section 1964 History of hernia repair History of hysterectomy 1980 History of hysterectomy History of resection of small bowel 07/2020-small bowel adhesiolysis and small bowel resection with reanastomosis. Family History Father Malignant neoplasm of lung Social History Smoking Status: Never smoker Alcohol Intake Frequency: does not drink Substance Use: does not use Exam Narrative Narrative: Narrative: General Limitations: language barrier General appearance: Present alert, lethargic and sleepy Head Head: Present atraumatic and normocephalic Eye Eye: Present PERRL and EOMI ENT ENT: Present normal oropharynx and mucous membranes dry Respiratory Respiratory: Present normal lung sounds bilaterally; Absent respiratory distress Cardiovascular Cardiovascular: Present regular rate and normal rhythm Adbominal Abdominal: Present soft and normal bowel sounds; Absent tenderness Extremities Extremities: Present normal capillary refill and other (Bilateral lower extremity edema that are wrapped with Thiago bandages) Expanded Lower Extremity Leg image: 1. Cellulitis with erythema, warmth or tenderness to palpation Neurological Neurological: Present alert and other (Unable to fully assess due to patient not being able to speak Bahamian but she does respond to her daughter and answers questions appropriately) Psychiatric Psychiatric: Present flat affect and poor eye contact Skin Skin: Present warm (WNL) and intact Course Course Course Narrative: Patient was evaluated for generalized weakness and lethargy. EKG was obtained and shows sinus tachycardia. On arrival patient was tachycardic and febrile so sepsis protocol was initiated. Initial lactic was unremarkable as well as repeat even though was slightly elevated it was still within normal limits. Chest x-ray obtained with image reviewed myself with no acute cardiopulmonary finding. UA was unremarkable. There was no obvious source of infection so skin exam was performed and it was notes that patient has cellulitis on the right lower extremity. Patient was started on IV Zosyn and vancomycin. She was bolused IV fluids as well. Labs showed that patient had hyperbilirubinemia and transaminitis both are new when compared to her labs less than 2 months ago. She had no tenderness to palpation in the right upper quadrant area. Ultrasound of the right upper quadrant showed that patient had cholecystitis. Case was discussed with on-call surgeon, Dr. Samuel, who requested a CT of the abdomen and pelvis to assess for CBD blockage. CT abdomen pelvis obtained with image reviewed myself which confirmed cholecystitis but also showed intrahepatic and extrahepatic bile duct dilatation. CT findings were discussed with Dr. Samuel who recommends that patient be transferred to facility that has ERCP and possibly MRCP capabilities. Patient is currently hemodynamically stable. Heart rate within normal limits and she is currently afebrile after receiving oral Tylenol and IV Toradol. She is resting comfortably. Findings and plan were discussed with patient's family who expressed verbal agreement understanding. Again patient does not speak any Bahamian and has longstanding dementia. Case signed out to Dr. Wiggins at [phone] pending transfer to outside facility. Reevaluation(s) Reevaluation #1: Patient remains hemodynamic stable. No new complaints at this time Time: 18:40 Reevaluation #2: Unfortunately patient has become more tachypneic and her fever is increased to 101.3. UA was unremarkable chest x-ray was unremarkable. Did a full vision body scan showed the patient had some and noticed that patient had some erythema , warmth and tender to palpation in her right andrews. This area is previously covered with some Thiago bandages which the daughter has stated was to help with her feet swelling. Upon further questioning she states that the patient developed a sore a couple days ago which she has been taking care of at home with topical antibiotics. She states that has not gotten much better and actually looks a little bit worse today. She apologized for not tell me about this sooner. Time: 20:19 Consultations Consultation #1: Case was discussed with on-call surgeon, Dr. Samuel, who recommend that patient obtain a CT of the abdomen and pelvis to see if there is a CBD obstruction and then call him back with results. Time: 21:10 Consultation #2: Case was rediscussed with Dr. Samuel after obtaining CT of the abdomen and pelvis, he recommends that patient go to a facility that has ERCP and MRCP capability. Time: 00:10 Consultation #3: Case was discussed with Dr. Bey, hospitalist at [facility], who has accepted patient as a transfer to their facility. Unfortunate this time did not have any beds available but once a bed does become available and we will be called and patient will be transferred via air. Time: 01:25 Vital Signs Vital signs: Vital Signs Temperature 99.0 F 05/12/22 17:33 Pulse Rate 95 H 05/12/22 17:33 Respiratory Rate 20 05/12/22 17:33 Blood Pressure 163/86 05/12/22 17:33 Pulse Oximetry (%) 95 05/12/22 17:33 Oxygen Delivery Method 05/12/22 17:33 Temperature 101.3 F H 05/12/22 20:09 Pulse Rate 80 05/13/22 06:30 Respiratory Rate 17 05/13/22 06:30 Blood Pressure 114/61 05/13/22 06:30 Pulse Oximetry (%) 97 05/13/22 06:30 Oxygen Delivery Method 05/12/22 17:33 MDM MDM Narrative Medical decision making narrative: Narrative: Differential Diagnosis Differential Diagnosis: Urinary tract infection, dehydration Medical Records Medical records reviewed: Yes I reviewed the patient's medical records. Lab Data Lab results reviewed: Yes I reviewed the patient's lab results. Result diagrams: 05/12/22 17:42 Labs: Lab Results 05/12/22 05/12/22 05/12/22 Range/Units 17:42 17:42 17:49 WBC 11.0 (4.5-11.0) K/mcL RBC 3.72 (3.59-5.38) M/mcL Hgb 10.6 L (11.2-15.7) g/dL Hct 33.0 L (34.1-44.9) % MCV 88.7 (80.0-100.0) fL MCH 28.5 (26.0-34.0) pg MCHC 32.1 (31.0-36.0) g/dL RDW 16.1 H (11.5-14.5) % Plt Count 240 (140-440) K/mcL MPV 9.4 (7.4-10.4) fL Immature Gran % (Auto) 0.4 (0.0-0.5) % Neut % (Auto) 84.8 H (38.0-78.0) % Lymph % (Auto) 6.1 L (15.5-49.0) % [place] % (Auto) 8.5 (1.0-12.0) % Eos % (Auto) 0 (0.0-7.0) % Baso % (Auto) 0.2 (0.0-2.0) % Lymph # (Auto) 0.67 L (1.50-4.80) K/mcL [place] # (Auto) 0.93 H (0.10-0.90) K/mcL Eos # (Auto) 0 (0.00-0.70) K/mcL Baso # (Auto) 0.02 (0.00-0.30) K/mcL Immature Gran # 0.04 (0.00-0.05) K/mcl Absolute Neutrophils 9.29 H (1.80-8.00) K/mcL POC VBG pH 7.42 (7.32-7.42) POC VBG pCO2 at Temp 41.0 (41-51) POC VBG pO2 19 L (25-40) POC VBG HCO3 26.7 (24-28) POC VBG Total CO2 28.0 (25-29) POC Venous O2 Sat 30.0 L (40-70) POC VBG Base Excess 2.0 (-2-2) VBG Lactic Acid 1.5 (0.5-2) Total Bilirubin 1.8 H (0.1-1.0) mg/dL Direct Bilirubin 1.3 H (<0.3) mg/dL AST 475 H (<32) U/L ALT 352 H (<40) U/L Alkaline Phosphatase 175 H (39-117) U/L Ammonia (11-51) umol/L Total Protein 7.9 (5.9-8.4) gm/dL Albumin 4.2 (3.2-5.2) gm/dL Globulin 3.7 (2.2-3.7) gm/dL Urine Color Urine Appearance (Clear) Urine pH (5.0-9.0) Ur Specific [place] (1.000-1.035) Urine Protein (Negative) mg/dL Urine Glucose (UA) (Negative) mg/dL Urine Ketones (Negative) mg/dL Urine Occult Blood (Negative) cooike/mcL Urine Nitrate (Negative) Urine Bilirubin (Negative) mg/dL Urine Urobilinogen mg/dL Ur Leukocyte Esterase (Negative) /uL Urine RBC (0-3) /hpf Urine WBC (0-4) /hpf Ur Squamous Epith Cells (0-4) /hpf Urine Bacteria (0) /hpf Urine Mucus (None) /hpf Ur Culture Indicated? 05/12/22 05/12/22 05/12/22 Range/Units 18:10 18:38 20:33 WBC (4.5-11.0) K/mcL RBC (3.59-5.38) M/mcL Hgb (11.2-15.7) g/dL Hct (34.1-44.9) % MCV (80.0-100.0) fL MCH (26.0-34.0) pg MCHC (31.0-36.0) g/dL RDW (11.5-14.5) % Plt Count (140-440) K/mcL MPV (7.4-10.4) fL Immature Gran % (Auto) (0.0-0.5) % Neut % (Auto) (38.0-78.0) % Lymph % (Auto) (15.5-49.0) % [place] % (Auto) (1.0-12.0) % Eos % (Auto) (0.0-7.0) % Baso % (Auto) (0.0-2.0) % Lymph # (Auto) (1.50-4.80) K/mcL [place] # (Auto) (0.10-0.90) K/mcL Eos # (Auto) (0.00-0.70) K/mcL Baso # (Auto) (0.00-0.30) K/mcL Immature Gran # (0.00-0.05) K/mcl Absolute Neutrophils (1.80-8.00) K/mcL POC VBG pH 7.49 H (7.32-7.42) POC VBG pCO2 at Temp 37.2 L (41-51) POC VBG pO2 32 (25-40) POC VBG HCO3 28.1 H (24-28) POC VBG Total CO2 29.0 (25-29) POC Venous O2 Sat 66.0 (40-70) POC VBG Base Excess 5.0 H* (-2-2) VBG Lactic Acid 1.8 (0.5-2) Total Bilirubin (0.1-1.0) mg/dL Direct Bilirubin (<0.3) mg/dL AST (<32) U/L ALT (<40) U/L Alkaline Phosphatase (39-117) U/L Ammonia 21 (11-51) umol/L Total Protein (5.9-8.4) gm/dL Albumin (3.2-5.2) gm/dL Globulin (2.2-3.7) gm/dL Urine Color Yellow Urine Appearance Clear (Clear) Urine pH 6.0 (5.0-9.0) Ur Specific [place] 1.015 (1.000-1.035) Urine Protein 100 mg/dl A (Negative) mg/dL Urine Glucose (UA) Negative (Negative) mg/dL Urine Ketones Negative (Negative) mg/dL Urine Occult Blood Moderate A (Negative) cookie/mcL Urine Nitrate Negative (Negative) Urine Bilirubin Negative (Negative) mg/dL Urine Urobilinogen Normal mg/dL Ur Leukocyte Esterase Trace A (Negative) /uL Urine RBC 7 H (0-3) /hpf Urine WBC 8 H (0-4) /hpf Ur Squamous Epith Cells 2 (0-4) /hpf Urine Bacteria None (0) /hpf Urine Mucus Few A (None) /hpf Ur Culture Indicated? No ED POC Tests ED POC Tests: ARIEL - Influenza A Negative ARIEL - Influenza B Negative ARIEL - SARS Antigen Negative Radiology Data Radiology results reviewed: Yes I reviewed the patient's radiology results. Radiology results narrative: Chest x-ray obtained with image reviewed myself, no acute cardiopulmonary findings Right upper quadrant ultrasound obtained which is concerning for cholecystitis CT abdomen pelvis obtained with image reviewed myself which shows cholelithiasis with gallbladder wall thickening suggestive of cholecystitis. There is also intrahepatic and extrahepatic bile duct dilatation with no obvious calcified bile duct stone EKG Data EKG #1: EKG attestation: Yes I reviewed and interpreted this EKG. EKG shows normal: sinus rhythm Rate: tachycardia (107) Rhythm: NSR [place]/QRS: normal Heart block present: None ST segment elevation in: None ST segment depression in: None QTc: normal QRS morphology: Present normal Interpretation: no acute changes Core Measures AMI Core Measures Followed: Yes Discharge Plan Patient/Caregiver Discharge Instructions Pt seen by [employer]/PA only: No Clinical Impression: Cellulitis of leg, right, Acute cholecystitis, Hyperbilirubinemia, Transaminitis, Common bile duct dilation, Acute dehydration Sepsis Qualifiers: Sepsis type: sepsis due to unspecified organism Sepsis acute organ dysfunction status: without acute organ dysfunction Qualified Code(s): A41.9 - Sepsis, unspecified organism Patient Disposition: Still a Patient Condition: Fair Follow up with: Ponce Renae MD [Primary Care Provider] - Prescriptions: No Action aripiprazole [Abilify] 5 mg tablet 5 mg PO QHS Qty: 30 0RF clonazepam 0.5 mg tablet 0.5 mg PO BID PRN (Reason: anxiety) Qty: 30 0RF sodium chloride 1 gram tablet 1,000 mg PO QDAY Qty: 1 0RF alendronate 70 mg tablet 70 mg PO QWEEK Qty: 12 1RF divalproex [Depakote] 125 mg tablet,delayed release (DR/EC) 125 mg PO BID Qty: 60 1RF polyethylene glycol 3350 [Miralax] 17 gram/dose powder 17 g PO QDAY torsemide 10 mg tablet 10 mg PO QAM Qty: 90 1RF clobetasol 0.05 % cream 1 applic topical BID 14 Days Qty: 30 1RF Ure-Na 15 gram powder in packet 0.5 packet PO QDAY Qty: 16 0RF levothyroxine 50 mcg tablet 50 mcg PO QDAY Qty: 30 1RF flaxseed oil 1,000 mg capsule 1,000 mg PO QDAY vitamin B complex tablet 1 tab-cap PO QDAY prenat.vits,jenna,sgd-ovel-kccfw tablet 1 tab PO QDAY lactobacillus combination no.8 3 billion cell capsule 3,000 mmu cells PO QDAY quetiapine 25 mg Tablet 25 mg PO BID Qty: 30 0RF
[2022-05-12 18:32] LABS: Hemoglobin 10.6 g/dL (11.2-15.7); Mean Cell Volume 88.7 fL (80.0-100.0); RBC 3.72 M/mcL (3.59-5.38)
[2022-05-12 18:33] LABS: Basophils # (Auto) 0.02 K/mcL (0.00-0.30); Basophils % (Auto) 0.2 % (0.0-2.0); Eosinophils # (Auto) 0 K/mcL (0.00-0.70); Eosinophils % (Auto) 0 % (0.0-7.0); Lymphocytes # (Auto) 0.67 K/mcL (1.50-4.80); Lymphocytes % (Auto) 6.1 % (15.5-49.0); Mean Corpuscular HGB Conc 32.1 g/dL (31.0-36.0); Mean Platelet Volume 9.4 fL (7.4-10.4); Monocytes # (Auto) 0.93 K/mcL (0.10-0.90); Monocytes % (Auto) 8.5 % (1.0-12.0); Neutrophils % (Auto) 84.8 % (38.0-78.0); Platelet Count 240 K/mcL (140-440); Red Cell Distribution Width 16.1 % (11.5-14.5)
[2022-05-12] MEDS ORDERED: fentaNYL 100 MCG/2 ML VIAL IV ONE (18:46)
--- NOTE | 2022-05-12 19:13 | XRay Report ---
INDICATION: tachycardia, tachypnea TECHNIQUE: AP portable upright chest x-ray COMPARISON: Previous chest x-rays dated 02/20/2022, 07/13/2020. Previous pulmonary CTA dated 07/13/2020 FINDINGS: Lungs:No focal pulmonary parenchymal consolidation or mass. Previous chest CT scan demonstrated bilateral groundglass infiltrates. Lungs presently appear hazy. This may be chronic or recurrent although this abnormality is not as well-visualized on plain film examination as on previous CT scan. Heart, vascular:No significant cardiomegaly. Pulmonary vascularity is normal. No pulmonary edema or pulmonary congestion Mediastinum, lupis:No mediastinal widening. No hilar mass Pleura:Mildly elevated right hemidiaphragm. No evidence for pleural effusion Skeletal:Negative. IMPRESSION: 1. No focal pulmonary parenchymal consolidation. 2. Diffuse hazy appearance of the lungs may be chronic or recurrent groundglass infiltrates is demonstrated on 07/13/2020 3. No evidence for congestive heart failure Interpreted and Authenticated by: James Perez 05/12/22
[2022-05-12 19:15] LABS: ALT/SGPT 352 U/L (<40); AST/SGOT 475 U/L (<32); Albumin 4.2 gm/dL (3.2-5.2); Alkaline Phosphatase 175 U/L (39-117); Bilirubin,Direct 1.3 mg/dL (<0.3); Bilirubin,Total 1.8 mg/dL (0.1-1.0); Globulin 3.7 gm/dL (2.2-3.7)
[2022-05-12 19:45] LABS: Appearance,Urine Clear (Clear); Bilirubin,Urine Negative (Negative); Color,Urine Yellow; Culture Indicated,Urine No; Glucose,Urine (UA) Negative (Negative); Ketones,Urine Negative (Negative); Leukocyte Esterase,Urine Trace /uL (Negative); Mucus,Urine FEW /hpf; Nitrate,Urine Negative (Negative); Specific Gravity,Urine 1.015 (1.000-1.035); Urine Blood Moderate ery/mcL (Negative); Urine RBC 7 /hpf (0-3); Urine Squamous Epithelial Cell 2 /hpf (0-4); Urine WBC 8 /hpf (0-4); Urobilinogen,Urine Normal
[2022-05-12] MEDS ORDERED: ACETAMINOPHEN 325 MG TABLET PO ONE (19:50)
[2022-05-12] MEDS ORDERED: KETOROLAC 30 MG/ML VIAL IV ONE (20:13)
[2022-05-12] MEDS ORDERED: VANCOMYCIN 1,000 MG in 0.9 % SODIUM CHLORIDE 250 ML IV ONE (20:18)
[2022-05-12] MEDS ORDERED: PIPERACILLIN SODIUM/TAZOBACTAM 3.375 GM in DEXTROSE 5% IN WATER 50 ML IV ONE (20:18)
[2022-05-13] MEDS ORDERED: 0.9 % SODIUM CHLORIDE 500 ML IV ONE (01:30)
[2022-05-13] MEDS: 0.9 % SODIUM CHLORIDE 1,000 ML IV SCH ×4 (02:45→20:41)
--- NOTE | 2022-05-13 05:56 | Cat Scan Report ---
INDICATION: Transaminitis, hyperbilirubinemia, cholecystitis COMPARISON: Previous CT scan dated 07/07/2020 TECHNIQUE: Axial images were obtained through the abdomen and pelvis. Sagittally and coronally reformatted images. 80 mL Isovue 370 injected intravenously. FINDINGS: Examination was initially interpreted by [facility] Lung bases:Lung bases are not well-visualized due to inability of the patient to raise her arms or suspend respiration. No parenchymal consolidation. No focal mass. Groundglass infiltrates are possible and pneumonia is not excluded. There is cardiomegaly. No pericardial effusion. No pleural effusion Liver:No focal hepatic mass. Liver contour is smooth. No focal abnormality Gallbladder, bilary:There are small calcified gallstones in the dependent portion of the gallbladder. There may be mild pericholecystic inflammation. Gallbladder wall is not appreciably thickened. Mild cholecystitis is not excluded. There is intra and extrahepatic bile duct dilatation. This is a new finding since previous examination. Common bile duct measures proximally 8 mm maximally at the level of the pancreatic head. There is no detectable pancreatic head mass. No detectable choledocholithiasis. MRCP may be helpful to further evaluate the intrahepatic and extrahepatic bile duct dilatation. Spleen:No splenomegaly. Normal enhancement of splenic and portal veins. Pancreas:There is no pancreatic mass. Pancreatic duct is dilated to almost 5 mm in the pancreatic body. Adrenal glands:No focal adrenal nodule Kidneys,ureters,bladder:There is a 4 x 1 cm right renal cyst. No solid mass. Right renal collecting system is mildly distended with prominent right renal pelvis. This is a new finding since previous examination. There is no obstructing or nonobstructing right renal stone. There is no right ureteral calculus. Left renal collecting system is mildly prominent. There is no obstructing or nonobstructing left renal calculus. No left ureteral stone. There is no solid or cystic left renal mass. Urinary bladder is distended. Obstructing mass at the bladder outlet is not identified. There is no bladder calculus. Bladder distention may be because of mild renal collecting system dilatation. Bladder was not distended on previous examination. Gastrointestinal:Large amount of fecal material within the distal sigmoid colon and rectum. Findings are consistent with rectal fecal impaction. There may be minimal pneumatosis. There is moderately prominent fecal material within the transverse colon. There is an anastomotic suture line which appears to be an enteral colonic anastomosis. There is no detectable colonic mass. There is no diverticulitis. Negative small bowel. No mechanical small bowel obstruction. No bowel wall thickening. No focal abnormality. Negative stomach and duodenum. No focal abnormality. Appendix: The appendix is not visualized Vascular:Negative abdominal aorta. Superior mesenteric artery and celiac trunk are normal. Normal opacification of the inferior mesenteric artery Lymphatic:No retroperitoneal or mesenteric adenopathy Mesentery, peritoneum: No free intraperitoneal fluid. No mesenteric or retroperitoneal mass. No intra-abdominal abscess. Reproductive:Previous hysterectomy. No adnexal mass Musculoskeletal:Mild T12 superior endplate compression. This is a new finding since 07/07/2026 and pelvis are negative. Hips are negative. No fracture. No abdominal wall or inguinal hernia IMPRESSION: 1. Lung bases are poorly visualized. Pneumonia is not excluded. 2. Intra and extrahepatic bile duct dilatation. There is cholelithiasis but no detectable choledocholithiasis. MRCP may be helpful for further evaluation. 3. Cholelithiasis. Possible mild pericholecystic inflammatory change. Cholecystitis is possible 4. Previous partial colectomy with enterocolonic anastomosis. No mechanical small bowel obstruction 5. Constipation and findings consistent with rectal impaction 6. Mild dilatation of the renal collecting systems bilaterally. There is distention of the urinary bladder. No obstructing bladder outlet mass identified. 7. Mild dilatation of the pancreatic duct. No pancreatic head mass identified. The exam was performed using radiation dose optimization techniques including, but not limited to, automated exposure control, adjustment of the mA and/or kV according to patient size and use of iterative reconstruction technique. Interpreted and Authenticated by: James Perez 05/13/22
--- NOTE | 2022-05-13 05:59 | Ultrasound Report ---
INDICATION: ruq, hyperbilirubinemia, transaminitis TECHNIQUE: Grayscale and color flow Doppler spectral imaging COMPARISON: None. FINDINGS: The examination was initially interpreted by [facility] Gallbladder:Multiple small mobile gallstones and probable biliary sludge. Gallbladder wall appears borderline thickened measuring approximately 3 to 4 mm. No pericholecystic fluid. Patient denied tenderness when scanned over the gallbladder. Common bile duct:There is intrahepatic bile duct dilatation. Common bile ligament measuring approximately 7 mm maximally. No detectable choledocholithiasis. Liver:No solid or cystic hepatic mass. Liver contour is smooth. No ascites.. Liver [id number] cm Portal vein:Normal hepatopedal portal venous flow Pancreas:Visualized portions of the pancreas are normal. Visualized portions of the pancreatic duct measure approximately 3 mm Right kidney:4 cm right renal cyst is noted incidentally. IMPRESSION: 1. Cholelithiasis. Mild cholecystitis is possible. There is borderline wall thickening without demonstrable pericholecystic fluid 2. Intra and extrahepatic bile duct dilatation. No detectable choledocholithiasis 3. Mildly prominent pancreatic duct. No detectable pancreatic mass Interpreted and Authenticated by: James Perez 05/13/22
[2022-05-13] MEDS ORDERED: cefTRIAXone 2 GM in DEXTROSE 5% IN WATER 50 ML IV ONE (06:27)
--- NOTE | 2022-05-13 10:56 | Emergency Department Note ---
Course Vital Signs Vital signs: Vital Signs Temperature 99.0 F 05/12/22 17:33 Pulse Rate 95 H 05/12/22 17:33 Respiratory Rate 20 05/12/22 17:33 Blood Pressure 163/86 05/12/22 17:33 Pulse Oximetry (%) 95 05/12/22 17:33 Oxygen Delivery Method 05/12/22 17:33 Temperature 97.6 F 05/13/22 08:13 Pulse Rate 74 05/13/22 16:46 Respiratory Rate 18 05/13/22 16:46 Blood Pressure 130/60 05/13/22 16:46 Pulse Oximetry (%) 96 05/13/22 16:46 Oxygen Delivery Method 05/12/22 17:33 MDM MDM Narrative Medical decision making narrative: Patient received in signout from Dr. Kemp. Weakness and lethargy, found to have elevated bilirubin and LFTs with dilated biliary and intrahepatic ducts concerning for possible biliary stone. Right upper quadrant ultrasound showed cholelithiasis and possible mild cholecystitis. Given that we do not have GI on-call for ERCP/MRCP, the patient is awaiting transfer to an appropriate facility. Patient's blood cultures came back positive in both cultures for gram-positive cocci consistent with bacteremia. Patient was redosed with 3.375g IV Zosyn at 12:30 PM and 1.5g IV vancomycin at 2 PM. On discussion with pharmacy, based on patient's creatinine she should have a vancomycin trough drawn at 8 PM. If less than 17 she should be on vancomycin 500 mg q24, otherwise she should be on 500mg vancomycin q36h. Patient will be due for another dose of Zosyn at 8 PM. Patient has been accepted at [facility] but we are still awaiting a bed. We have reached out to [facility] in [place] and are waiting to hear back from the Dr. Mckeon, general surgeon, for consultation and possible transfer. Patient will be signed out to nanyc KNIGHT, Dr. Kemp. Lab Data Result diagrams: 05/12/22 17:42 Labs: Lab Results 05/12/22 05/12/22 05/12/22 Range/Units 17:42 17:42 17:49 WBC 11.0 (4.5-11.0) K/mcL RBC 3.72 (3.59-5.38) M/mcL Hgb 10.6 L (11.2-15.7) g/dL Hct 33.0 L (34.1-44.9) % POC Hct (36-48) MCV 88.7 (80.0-100.0) fL MCH 28.5 (26.0-34.0) pg MCHC 32.1 (31.0-36.0) g/dL RDW 16.1 H (11.5-14.5) % Plt Count 240 (140-440) K/mcL MPV 9.4 (7.4-10.4) fL Immature Gran % (Auto) 0.4 (0.0-0.5) % Neut % (Auto) 84.8 H (38.0-78.0) % Lymph % (Auto) 6.1 L (15.5-49.0) % Cannon % (Auto) 8.5 (1.0-12.0) % Eos % (Auto) 0 (0.0-7.0) % Baso % (Auto) 0.2 (0.0-2.0) % Lymph # (Auto) 0.67 L (1.50-4.80) K/mcL Cannon # (Auto) 0.93 H (0.10-0.90) K/mcL Eos # (Auto) 0 (0.00-0.70) K/mcL Baso # (Auto) 0.02 (0.00-0.30) K/mcL Immature Gran # 0.04 (0.00-0.05) K/mcl Absolute Neutrophils 9.29 H (1.80-8.00) K/mcL POC VBG pH 7.42 (7.32-7.42) POC VBG pCO2 at Temp 41.0 (41-51) POC VBG pO2 19 L (25-40) POC VBG HCO3 26.7 (24-28) POC VBG Total CO2 28.0 (25-29) POC Venous O2 Sat 30.0 L (40-70) POC VBG Base Excess 2.0 (-2-2) VBG Lactic Acid 1.5 (0.5-2) POC Sodium (133-145) POC Potassium (3.3-5.1) POC Chloride (96-108) POC Total CO2 (22-30) POC BUN (6-20) POC Creatinine (0.6-1.2) POC Glucose (70-105) POC WB Ioniz Calcium (1.16-1.32) Total Bilirubin 1.8 H (0.1-1.0) mg/dL Direct Bilirubin 1.3 H (<0.3) mg/dL AST 475 H (<32) U/L ALT 352 H (<40) U/L Alkaline Phosphatase 175 H (39-117) U/L Ammonia (11-51) umol/L Total Protein 7.9 (5.9-8.4) gm/dL Albumin 4.2 (3.2-5.2) gm/dL Globulin 3.7 (2.2-3.7) gm/dL Urine Color Urine Appearance (Clear) Urine pH (5.0-9.0) Ur Specific Sadler (1.000-1.035) Urine Protein (Negative) mg/dL Urine Glucose (UA) (Negative) mg/dL Urine Ketones (Negative) mg/dL Urine Occult Blood (Negative) cookie/mcL Urine Nitrate (Negative) Urine Bilirubin (Negative) mg/dL Urine Urobilinogen mg/dL Ur Leukocyte Esterase (Negative) /uL Urine RBC (0-3) /hpf Urine WBC (0-4) /hpf Ur Squamous Epith Cells (0-4) /hpf Urine Bacteria (0) /hpf Urine Mucus (None) /hpf Ur Culture Indicated? 05/12/22 05/12/22 05/12/22 Range/Units 18:10 18:38 20:33 WBC (4.5-11.0) K/mcL RBC (3.59-5.38) M/mcL Hgb (11.2-15.7) g/dL Hct (34.1-44.9) % POC Hct (36-48) MCV (80.0-100.0) fL MCH (26.0-34.0) pg MCHC (31.0-36.0) g/dL RDW (11.5-14.5) % Plt Count (140-440) K/mcL MPV (7.4-10.4) fL Immature Gran % (Auto) (0.0-0.5) % Neut % (Auto) (38.0-78.0) % Lymph % (Auto) (15.5-49.0) % Cannon % (Auto) (1.0-12.0) % Eos % (Auto) (0.0-7.0) % Baso % (Auto) (0.0-2.0) % Lymph # (Auto) (1.50-4.80) K/mcL Cannon # (Auto) (0.10-0.90) K/mcL Eos # (Auto) (0.00-0.70) K/mcL Baso # (Auto) (0.00-0.30) K/mcL Immature Gran # (0.00-0.05) K/mcl Absolute Neutrophils (1.80-8.00) K/mcL POC VBG pH 7.49 H (7.32-7.42) POC VBG pCO2 at Temp 37.2 L (41-51) POC VBG pO2 32 (25-40) POC VBG HCO3 28.1 H (24-28) POC VBG Total CO2 29.0 (25-29) POC Venous O2 Sat 66.0 (40-70) POC VBG Base Excess 5.0 H* (-2-2) VBG Lactic Acid 1.8 (0.5-2) POC Sodium (133-145) POC Potassium (3.3-5.1) POC Chloride (96-108) POC Total CO2 (22-30) POC BUN (6-20) POC Creatinine (0.6-1.2) POC Glucose (70-105) POC WB Ioniz Calcium (1.16-1.32) Total Bilirubin (0.1-1.0) mg/dL Direct Bilirubin (<0.3) mg/dL AST (<32) U/L ALT (<40) U/L Alkaline Phosphatase (39-117) U/L Ammonia 21 (11-51) umol/L Total Protein (5.9-8.4) gm/dL Albumin (3.2-5.2) gm/dL Globulin (2.2-3.7) gm/dL Urine Color Yellow Urine Appearance Clear (Clear) Urine pH 6.0 (5.0-9.0) Ur Specific Sadler 1.015 (1.000-1.035) Urine Protein 100 mg/dl A (Negative) mg/dL Urine Glucose (UA) Negative (Negative) mg/dL Urine Ketones Negative (Negative) mg/dL Urine Occult Blood Moderate A (Negative) cookie/mcL Urine Nitrate Negative (Negative) Urine Bilirubin Negative (Negative) mg/dL Urine Urobilinogen Normal mg/dL Ur Leukocyte Esterase Trace A (Negative) /uL Urine RBC 7 H (0-3) /hpf Urine WBC 8 H (0-4) /hpf Ur Squamous Epith Cells 2 (0-4) /hpf Urine Bacteria None (0) /hpf Urine Mucus Few A (None) /hpf Ur Culture Indicated? No 05/13/22 Range/Units 14:35 WBC (4.5-11.0) K/mcL RBC (3.59-5.38) M/mcL Hgb (11.2-15.7) g/dL Hct (34.1-44.9) % POC Hct 27.0 L (36-48) MCV (80.0-100.0) fL MCH (26.0-34.0) pg MCHC (31.0-36.0) g/dL RDW (11.5-14.5) % Plt Count (140-440) K/mcL MPV (7.4-10.4) fL Immature Gran % (Auto) (0.0-0.5) % Neut % (Auto) (38.0-78.0) % Lymph % (Auto) (15.5-49.0) % Cannon % (Auto) (1.0-12.0) % Eos % (Auto) (0.0-7.0) % Baso % (Auto) (0.0-2.0) % Lymph # (Auto) (1.50-4.80) K/mcL Cannon # (Auto) (0.10-0.90) K/mcL Eos # (Auto) (0.00-0.70) K/mcL Baso # (Auto) (0.00-0.30) K/mcL Immature Gran # (0.00-0.05) K/mcl Absolute Neutrophils (1.80-8.00) K/mcL POC VBG pH (7.32-7.42) POC VBG pCO2 at Temp (41-51) POC VBG pO2 (25-40) POC VBG HCO3 (24-28) POC VBG Total CO2 (25-29) POC Venous O2 Sat (40-70) POC VBG Base Excess (-2-2) VBG Lactic Acid (0.5-2) POC Sodium 138 (133-145) POC Potassium 3.8 (3.3-5.1) POC Chloride 104 (96-108) POC Total CO2 23.0 (22-30) POC BUN 49 H (6-20) POC Creatinine 1.4 H (0.6-1.2) POC Glucose 85 (70-105) POC WB Ioniz Calcium 1.12 L (1.16-1.32) Total Bilirubin (0.1-1.0) mg/dL Direct Bilirubin (<0.3) mg/dL AST (<32) U/L ALT (<40) U/L Alkaline Phosphatase (39-117) U/L Ammonia (11-51) umol/L Total Protein (5.9-8.4) gm/dL Albumin (3.2-5.2) gm/dL Globulin (2.2-3.7) gm/dL Urine Color Urine Appearance (Clear) Urine pH (5.0-9.0) Ur Specific Sadler (1.000-1.035) Urine Protein (Negative) mg/dL Urine Glucose (UA) (Negative) mg/dL Urine Ketones (Negative) mg/dL Urine Occult Blood (Negative) cookie/mcL Urine Nitrate (Negative) Urine Bilirubin (Negative) mg/dL Urine Urobilinogen mg/dL Ur Leukocyte Esterase (Negative) /uL Urine RBC (0-3) /hpf Urine WBC (0-4) /hpf Ur Squamous Epith Cells (0-4) /hpf Urine Bacteria (0) /hpf Urine Mucus (None) /hpf Ur Culture Indicated? ED POC Tests ED POC Tests: ARIEL - Influenza A Negative ARIEL - Influenza B Negative ARIEL - SARS Antigen Negative Discharge Plan Patient/Caregiver Discharge Instructions Pt seen by SUPPLIER QUALITY MANAGER/PA only: No Clinical Impression: Cellulitis of leg, right, Acute cholecystitis, Hyperbilirubinemia, Transaminitis, Common bile duct dilation, Acute dehydration Sepsis Qualifiers: Sepsis type: sepsis due to unspecified organism Sepsis acute organ dysfunction status: without acute organ dysfunction Qualified Code(s): A41.9 - Sepsis, unspecified organism Patient Disposition: Still a Patient Condition: Fair Follow up with: Ponce Renae MD [Primary Care Provider] - Prescriptions: No Action aripiprazole [Abilify] 5 mg tablet 5 mg PO QHS Qty: 30 0RF clonazepam 0.5 mg tablet 0.5 mg PO BID PRN (Reason: anxiety) Qty: 30 0RF sodium chloride 1 gram tablet 1,000 mg PO QDAY Qty: 1 0RF alendronate 70 mg tablet 70 mg PO QWEEK Qty: 12 1RF divalproex [Depakote] 125 mg tablet,delayed release (DR/EC) 125 mg PO BID Qty: 60 1RF polyethylene glycol 3350 [Miralax] 17 gram/dose powder 17 g PO QDAY torsemide 10 mg tablet 10 mg PO QAM Qty: 90 1RF clobetasol 0.05 % cream 1 applic topical BID 14 Days Qty: 30 1RF Ure-Na 15 gram powder in packet 0.5 packet PO QDAY Qty: 16 0RF levothyroxine 50 mcg tablet 50 mcg PO QDAY Qty: 30 1RF flaxseed oil 1,000 mg capsule 1,000 mg PO QDAY vitamin B complex tablet 1 tab-cap PO QDAY prenat.vits,jenna,vjm-vias-evgca tablet 1 tab PO QDAY lactobacillus combination no.8 3 billion cell capsule 3,000 mmu cells PO QDAY quetiapine 25 mg Tablet 25 mg PO BID Qty: 30 0RF
[2022-05-13] MEDS ORDERED: PIPERACILLIN SODIUM/TAZOBACTAM 3.375 GM in DEXTROSE 5% IN WATER 50 ML IV ONE (12:24)
[2022-05-13] MEDS ORDERED: VANCOMYCIN 1,500 MG in 0.9 % SODIUM CHLORIDE 500 ML IV ONE (13:59)
[2022-05-13 14:38] LABS: POC Calcium, Ionized 1.12 (1.16-1.32); POC Creatinine 1.4 (0.6-1.2); POC Potassium 3.8 (3.3-5.1)
--- NOTE | 2022-05-13 18:27 | Emergency Department Note ---
Course Course Course Narrative: I have reassumed care of patient at 1700. Case was rediscussed with general surgery as we have not had any luck in getting patient transferred out. General surgery said that an MRCP could be ordered to see if there is a stone if there is no stone then patient can be admitted to the hospitalist service with a consult to general surgery for possible cholecystectomy. MRCP order has been placed. Case was discussed with hospitalist who has been consulted for medical management of this patient's sepsis secondary to lower extremity cellulitis and possible cholecystitis. It was reported that patient's daughter contacted Dr. Ortiz, general surgery, who states that if patient's MRCP is clean of stones then patient can be admitted to him. Case Dr. Wiggins at 0 700 as I be going off service. Reevaluation(s) Reevaluation #1: Patient remains hemodynamically stable. No new complaints at this time. Time: 17:00 Consultations Consultation #1: Case discussed with general surgeon, Dr. Guerrero, from [place] in [facility]. She has refused patient as a transfer because she believes is an inappropriate transfer since patient needs a cholecystectomy which can be done at our facility. I advised her that our general surgeon has been consulted and he has reviewed the images and he believes that patient needs to have a ERCP first to ensure that there is no ductal stone blockage before a cholecystectomy is performed. Dr. Guerrero stated that her GI specialist disagrees with that recommendation and recommends against ERCP at this time because her labs do not warrant it. When asked what what her total bilirubin have to be in order to have ERCP she said to have to be greater than 4 or a stone identified on CT. It is well-known that stones are not easily visualized on CT unless they have c alcified which is why an ERCP is recommended to see if there is a stone. It is unfortunate that we must wait for patient to decompensate further in order to necessitate a transfer. We are actively given patient's IV fluids to her total bilirubin most likely would not get above 4 to meet their criteria for transfer. In any case Dr. Guerrero adamantly refused patient as a transfer to their facility because she deemed it an appropriate. Time: 18:10 Consultation #2: Case discussed with our hospitalist, Dr. Barton, who declined to admit the patient. His recommendation is to have MRCP done in the morning and if it is negative for common bile duct stone and patient can be admitted for sepsis secondary cellulitis or admitted to surgery for a cholecystectomy. After further discussion with Dr. Barton he has agreed to be consulted for medical management of this patient while she is in the ED for her sepsis secondary to cellulitis. Time: 22:25 Vital Signs Vital signs: Vital Signs Temperature 99.0 F 05/12/22 17:33 Pulse Rate 95 H 05/12/22 17:33 Respiratory Rate 20 05/12/22 17:33 Blood Pressure 163/86 05/12/22 17:33 Pulse Oximetry (%) 95 05/12/22 17:33 Oxygen Delivery Method 05/12/22 17:33 Temperature 97.6 F 05/13/22 08:13 Pulse Rate 85 05/14/22 05:46 Respiratory Rate 17 05/14/22 05:46 Blood Pressure 121/64 05/14/22 05:46 Pulse Oximetry (%) 98 05/14/22 05:46 Oxygen Delivery Method 05/12/22 17:33 MDM MDM Narrative Medical decision making narrative: Narrative: Lab Data Result diagrams: 05/12/22 17:42 Labs: Lab Results 05/12/22 05/12/22 05/12/22 Range/Units 17:42 17:42 17:49 WBC 11.0 (4.5-11.0) K/mcL RBC 3.72 (3.59-5.38) M/mcL Hgb 10.6 L (11.2-15.7) g/dL Hct 33.0 L (34.1-44.9) % POC Hct (36-48) MCV 88.7 (80.0-100.0) fL MCH 28.5 (26.0-34.0) pg MCHC 32.1 (31.0-36.0) g/dL RDW 16.1 H (11.5-14.5) % Plt Count 240 (140-440) K/mcL MPV 9.4 (7.4-10.4) fL Immature Gran % (Auto) 0.4 (0.0-0.5) % Neut % (Auto) 84.8 H (38.0-78.0) % Lymph % (Auto) 6.1 L (15.5-49.0) % [place] % (Auto) 8.5 (1.0-12.0) % Eos % (Auto) 0 (0.0-7.0) % Baso % (Auto) 0.2 (0.0-2.0) % Lymph # (Auto) 0.67 L (1.50-4.80) K/mcL [place] # (Auto) 0.93 H (0.10-0.90) K/mcL Eos # (Auto) 0 (0.00-0.70) K/mcL Baso # (Auto) 0.02 (0.00-0.30) K/mcL Immature Gran # 0.04 (0.00-0.05) K/mcl Absolute Neutrophils 9.29 H (1.80-8.00) K/mcL POC VBG pH 7.42 (7.32-7.42) POC VBG pCO2 at Temp 41.0 (41-51) POC VBG pO2 19 L (25-40) POC VBG HCO3 26.7 (24-28) POC VBG Total CO2 28.0 (25-29) POC Venous O2 Sat 30.0 L (40-70) POC VBG Base Excess 2.0 (-2-2) VBG Lactic Acid 1.5 (0.5-2) POC Sodium (133-145) POC Potassium (3.3-5.1) POC Chloride (96-108) POC Total CO2 (22-30) POC BUN (6-20) POC Creatinine (0.6-1.2) POC Glucose (70-105) POC WB Ioniz Calcium (1.16-1.32) Total Bilirubin 1.8 H (0.1-1.0) mg/dL Direct Bilirubin 1.3 H (<0.3) mg/dL AST 475 H (<32) U/L ALT 352 H (<40) U/L Alkaline Phosphatase 175 H (39-117) U/L Ammonia (11-51) umol/L Total Protein 7.9 (5.9-8.4) gm/dL Albumin 4.2 (3.2-5.2) gm/dL Globulin 3.7 (2.2-3.7) gm/dL Urine Color Urine Appearance (Clear) Urine pH (5.0-9.0) Ur Specific Hudson (1.000-1.035) Urine Protein (Negative) mg/dL Urine Glucose (UA) (Negative) mg/dL Urine Ketones (Negative) mg/dL Urine Occult Blood (Negative) cookie/mcL Urine Nitrate (Negative) Urine Bilirubin (Negative) mg/dL Urine Urobilinogen mg/dL Ur Leukocyte Esterase (Negative) /uL Urine RBC (0-3) /hpf Urine WBC (0-4) /hpf Ur Squamous Epith Cells (0-4) /hpf Urine Bacteria (0) /hpf Urine Mucus (None) /hpf Ur Culture Indicated? Random Vancomycin ug/mL 05/12/22 05/12/22 05/12/22 Range/Units 18:10 18:38 20:33 WBC (4.5-11.0) K/mcL RBC (3.59-5.38) M/mcL Hgb (11.2-15.7) g/dL Hct (34.1-44.9) % POC Hct (36-48) MCV (80.0-100.0) fL MCH (26.0-34.0) pg MCHC (31.0-36.0) g/dL RDW (11.5-14.5) % Plt Count (140-440) K/mcL MPV (7.4-10.4) fL Immature Gran % (Auto) (0.0-0.5) % Neut % (Auto) (38.0-78.0) % Lymph % (Auto) (15.5-49.0) % [place] % (Auto) (1.0-12.0) % Eos % (Auto) (0.0-7.0) % Baso % (Auto) (0.0-2.0) % Lymph # (Auto) (1.50-4.80) K/mcL [place] # (Auto) (0.10-0.90) K/mcL Eos # (Auto) (0.00-0.70) K/mcL Baso # (Auto) (0.00-0.30) K/mcL Immature Gran # (0.00-0.05) K/mcl Absolute Neutrophils (1.80-8.00) K/mcL POC VBG pH 7.49 H (7.32-7.42) POC VBG pCO2 at Temp 37.2 L (41-51) POC VBG pO2 32 (25-40) POC VBG HCO3 28.1 H (24-28) POC VBG Total CO2 29.0 (25-29) POC Venous O2 Sat 66.0 (40-70) POC VBG Base Excess 5.0 H* (-2-2) VBG Lactic Acid 1.8 (0.5-2) POC Sodium (133-145) POC Potassium (3.3-5.1) POC Chloride (96-108) POC Total CO2 (22-30) POC BUN (6-20) POC Creatinine (0.6-1.2) POC Glucose (70-105) POC WB Ioniz Calcium (1.16-1.32) Total Bilirubin (0.1-1.0) mg/dL Direct Bilirubin (<0.3) mg/dL AST (<32) U/L ALT (<40) U/L Alkaline Phosphatase (39-117) U/L Ammonia 21 (11-51) umol/L Total Protein (5.9-8.4) gm/dL Albumin (3.2-5.2) gm/dL Globulin (2.2-3.7) gm/dL Urine Color Yellow Urine Appearance Clear (Clear) Urine pH 6.0 (5.0-9.0) Ur Specific [place] 1.015 (1.000-1.035) Urine Protein 100 mg/dl A (Negative) mg/dL Urine Glucose (UA) Negative (Negative) mg/dL Urine Ketones Negative (Negative) mg/dL Urine Occult Blood Moderate A (Negative) cookie/mcL Urine Nitrate Negative (Negative) Urine Bilirubin Negative (Negative) mg/dL Urine Urobilinogen Normal mg/dL Ur Leukocyte Esterase Trace A (Negative) /uL Urine RBC 7 H (0-3) /hpf Urine WBC 8 H (0-4) /hpf Ur Squamous Epith Cells 2 (0-4) /hpf Urine Bacteria None (0) /hpf Urine Mucus Few A (None) /hpf Ur Culture Indicated? No Random Vancomycin ug/mL 05/13/22 05/13/22 05/13/22 Range/Units 14:35 18:40 18:40 WBC (4.5-11.0) K/mcL RBC (3.59-5.38) M/mcL Hgb (11.2-15.7) g/dL Hct (34.1-44.9) % POC Hct 27.0 L (36-48) MCV (80.0-100.0) fL MCH (26.0-34.0) pg MCHC (31.0-36.0) g/dL RDW (11.5-14.5) % Plt Count (140-440) K/mcL MPV (7.4-10.4) fL Immature Gran % (Auto) (0.0-0.5) % Neut % (Auto) (38.0-78.0) % Lymph % (Auto) (15.5-49.0) % [place] % (Auto) (1.0-12.0) % Eos % (Auto) (0.0-7.0) % Baso % (Auto) (0.0-2.0) % Lymph # (Auto) (1.50-4.80) K/mcL [place] # (Auto) (0.10-0.90) K/mcL Eos # (Auto) (0.00-0.70) K/mcL Baso # (Auto) (0.00-0.30) K/mcL Immature Gran # (0.00-0.05) K/mcl Absolute Neutrophils (1.80-8.00) K/mcL POC VBG pH (7.32-7.42) POC VBG pCO2 at Temp (41-51) POC VBG pO2 (25-40) POC VBG HCO3 (24-28) POC VBG Total CO2 (25-29) POC Venous O2 Sat (40-70) POC VBG Base Excess (-2-2) VBG Lactic Acid (0.5-2) POC Sodium 138 (133-145) POC Potassium 3.8 (3.3-5.1) POC Chloride 104 (96-108) POC Total CO2 23.0 (22-30) POC BUN 49 H (6-20) POC Creatinine 1.4 H (0.6-1.2) POC Glucose 85 (70-105) POC WB Ioniz Calcium 1.12 L (1.16-1.32) Total Bilirubin 1.5 H (0.1-1.0) mg/dL Direct Bilirubin 1.1 H (<0.3) mg/dL AST 295 H (<32) U/L ALT 348 H (<40) U/L Alkaline Phosphatase 148 H (39-117) U/L Ammonia (11-51) umol/L Total Protein 6.8 (5.9-8.4) gm/dL Albumin 3.3 (3.2-5.2) gm/dL Globulin 3.5 (2.2-3.7) gm/dL Urine Color Urine Appearance (Clear) Urine pH (5.0-9.0) Ur Specific [place] (1.000-1.035) Urine Protein (Negative) mg/dL Urine Glucose (UA) (Negative) mg/dL Urine Ketones (Negative) mg/dL Urine Occult Blood (Negative) cookie/mcL Urine Nitrate (Negative) Urine Bilirubin (Negative) mg/dL Urine Urobilinogen mg/dL Ur Leukocyte Esterase (Negative) /uL Urine RBC (0-3) /hpf Urine WBC (0-4) /hpf Ur Squamous Epith Cells (0-4) /hpf Urine Bacteria (0) /hpf Urine Mucus (None) /hpf Ur Culture Indicated? Random Vancomycin 7.4 ug/mL ED POC Tests ED POC Tests: ARIEL - Influenza A Negative ARIEL - Influenza B Negative ARIEL - SARS Antigen Negative Discharge Plan Patient/Caregiver Discharge Instructions Pt seen by YARD PILOT/PA only: No Clinical Impression: Cellulitis of leg, right, Acute cholecystitis, Hyperbilirubinemia, Transaminitis, Common bile duct dilation, Acute dehydration Sepsis Qualifiers: Sepsis type: sepsis due to unspecified organism Sepsis acute organ dysfunction status: without acute organ dysfunction Qualified Code(s): A41.9 - Sepsis, unspecified organism Patient Disposition: Still a Patient Condition: Fair Follow up with: Ponce Renae MD [Primary Care Provider] - Prescriptions: No Action aripiprazole [Abilify] 5 mg tablet 5 mg PO QHS Qty: 30 0RF clonazepam 0.5 mg tablet 0.5 mg PO BID PRN (Reason: anxiety) Qty: 30 0RF sodium chloride 1 gram tablet 1,000 mg PO QDAY Qty: 1 0RF alendronate 70 mg tablet 70 mg PO QWEEK Qty: 12 1RF divalproex [Depakote] 125 mg tablet,delayed release (DR/EC) 125 mg PO BID Qty: 60 1RF polyethylene glycol 3350 [Miralax] 17 gram/dose powder 17 g PO QDAY torsemide 10 mg tablet 10 mg PO QAM Qty: 90 1RF clobetasol 0.05 % cream 1 applic topical BID 14 Days Qty: 30 1RF Ure-Na 15 gram powder in packet 0.5 packet PO QDAY Qty: 16 0RF levothyroxine 50 mcg tablet 50 mcg PO QDAY Qty: 30 1RF flaxseed oil 1,000 mg capsule 1,000 mg PO QDAY vitamin B complex tablet 1 tab-cap PO QDAY prenat.vits,jenna,ubn-himz-jgqtg tablet 1 tab PO QDAY lactobacillus combination no.8 3 billion cell capsule 3,000 mmu cells PO QDAY quetiapine 25 mg Tablet 25 mg PO BID Qty: 30 0RF
[2022-05-13] MEDS ORDERED: VANCOMYCIN PER PHARMACY IV ONE (19:24)
[2022-05-13 19:45] LABS: ALT/SGPT 348 U/L (<40); AST/SGOT 295 U/L (<32); Albumin 3.3 gm/dL (3.2-5.2); Alkaline Phosphatase 148 U/L (39-117); Bilirubin,Direct 1.1 mg/dL (<0.3); Bilirubin,Total 1.5 mg/dL (0.1-1.0); Globulin 3.5 gm/dL (2.2-3.7)
[2022-05-13 19:50] LABS: Vancomycin,Random 7.4 ug/mL
[2022-05-13] MEDS: PIPERACILLIN SODIUM/TAZOBACTAM 3.375 GM in DEXTROSE 5% IN WATER 50 ML IV SCH (20:40)
[2022-05-13] MEDS ORDERED: VANCOMYCIN 750 MG in 0.9 % SODIUM CHLORIDE 250 ML IV SCH (21:00)
[2022-05-13] MEDS: VANCOMYCIN 500 MG in 0.9 % SODIUM CHLORIDE 100 ML IV SCH (21:29)
[2022-05-13] MEDS ORDERED: clonazePAM 0.5 MG TABLET PO PRN (22:31)
[2022-05-13] MEDS ORDERED: ARIPIPRAZOLE 5 MG TABLET PO SCH (22:35)
[2022-05-13] MEDS ORDERED: VALPROIC ACID 250 MG CAPSULE PO ONE (22:39)
[2022-05-13] MEDS ORDERED: ARIPIPRAZOLE 5 MG TABLET PO ONE (23:19)
[2022-05-13] MEDS: DIVALPROEX SODIUM 250 MG TABLET PO SCH (23:26)
[2022-05-14] MEDS: PIPERACILLIN SODIUM/TAZOBACTAM 3.375 GM in DEXTROSE 5% IN WATER 50 ML IV SCH (07:31)
[2022-05-14] MEDS: 0.9 % SODIUM CHLORIDE 1,000 ML IV SCH ×2 (07:36→13:38)
--- NOTE | 2022-05-14 08:13 | Emergency Department Note ---
Course Consultations Consultation #1: Dr. Ortiz, general surgery Time: 13:50 Vital Signs Vital signs: Vital Signs Temperature 99.0 F 05/12/22 17:33 Pulse Rate 95 H 05/12/22 17:33 Respiratory Rate 20 05/12/22 17:33 Blood Pressure 163/86 05/12/22 17:33 Pulse Oximetry (%) 95 05/12/22 17:33 Oxygen Delivery Method 05/12/22 17:33 Temperature 100.2 F H 05/14/22 15:04 Pulse Rate 79 05/14/22 15:04 Respiratory Rate 18 05/14/22 15:04 Blood Pressure 148/75 05/14/22 15:04 Pulse Oximetry (%) 95 05/14/22 15:04 Oxygen Delivery Method 05/14/22 15:04 MDM MDM Narrative Medical decision making narrative: Patient received in signout from Dr. Kemp. Transaminitis and concern for biliary duct stone. She also has bacteremia. Patient has been on scheduled antibiotics, vancomycin and Zosyn. MRCP obtained today which shows no dilated bile duct and no choledocholithiasis. I spoke with Dr. Ortiz who has graciously agreed to admit the patient to his service. Vital signs are stable and patient remains comfortable. Lab Data Result diagrams: 05/14/22 13:03 05/14/22 07:06 Labs: Lab Results 05/12/22 05/12/22 05/12/22 Range/Units 17:42 17:42 17:49 WBC 11.0 (4.5-11.0) K/mcL RBC 3.72 (3.59-5.38) M/mcL Hgb 10.6 L (11.2-15.7) g/dL Hct 33.0 L (34.1-44.9) % POC Hct (36-48) MCV 88.7 (80.0-100.0) fL MCH 28.5 (26.0-34.0) pg MCHC 32.1 (31.0-36.0) g/dL RDW 16.1 H (11.5-14.5) % Plt Count 240 (140-440) K/mcL MPV 9.4 (7.4-10.4) fL Immature Gran % (Auto) 0.4 (0.0-0.5) % Neut % (Auto) 84.8 H (38.0-78.0) % Lymph % (Auto) 6.1 L (15.5-49.0) % Payne % (Auto) 8.5 (1.0-12.0) % Eos % (Auto) 0 (0.0-7.0) % Baso % (Auto) 0.2 (0.0-2.0) % Lymph # (Auto) 0.67 L (1.50-4.80) K/mcL Payne # (Auto) 0.93 H (0.10-0.90) K/mcL Eos # (Auto) 0 (0.00-0.70) K/mcL Baso # (Auto) 0.02 (0.00-0.30) K/mcL Immature Gran # 0.04 (0.00-0.05) K/mcl Absolute Neutrophils 9.29 H (1.80-8.00) K/mcL POC VBG pH 7.42 (7.32-7.42) POC VBG pCO2 at Temp 41.0 (41-51) POC VBG pO2 19 L (25-40) POC VBG HCO3 26.7 (24-28) POC VBG Total CO2 28.0 (25-29) POC Venous O2 Sat 30.0 L (40-70) POC VBG Base Excess 2.0 (-2-2) VBG Lactic Acid 1.5 (0.5-2) POC Sodium (133-145) Sodium (133-145) mmol/L POC Potassium (3.3-5.1) Potassium (3.3-5.1) mmol/L POC Chloride (96-108) Chloride (96-108) mmol/L Carbon Dioxide (22-30) mmol/L POC Total CO2 (22-30) Anion Gap (8.0-16.0) POC BUN (6-20) BUN (8-23) mg/dL Creatinine (0.6-1.1) mg/dL POC Creatinine (0.6-1.2) GFR Calculation Glucose (70-105) mg/dL POC Glucose (70-105) Uric Acid (2.5-8.0) mg/dL Calcium (8.6-10.4) mg/dL POC WB Ioniz Calcium (1.16-1.32) Phosphorus (2.5-4.5) mg/dL Magnesium (1.6-2.5) mg/dL Total Bilirubin 1.8 H (0.1-1.0) mg/dL Direct Bilirubin 1.3 H (<0.3) mg/dL GGT (5-36) U/L AST 475 H (<32) U/L ALT 352 H (<40) U/L Alkaline Phosphatase 175 H (39-117) U/L Ammonia (11-51) umol/L Lactate Dehydrogenase (135-225) U/L Total Protein 7.9 (5.9-8.4) gm/dL Albumin 4.2 (3.2-5.2) gm/dL Globulin 3.7 (2.2-3.7) gm/dL Albumin/Globulin Ratio (1.0-2.3) Triglycerides (<150) mg/dL Urine Color Urine Appearance (Clear) Urine pH (5.0-9.0) Ur Specific [place] (1.000-1.035) Urine Protein (Negative) mg/dL Urine Glucose (UA) (Negative) mg/dL Urine Ketones (Negative) mg/dL Urine Occult Blood (Negative) cookie/mcL Urine Nitrate (Negative) Urine Bilirubin (Negative) mg/dL Urine Urobilinogen mg/dL Ur Leukocyte Esterase (Negative) /uL Urine RBC (0-3) /hpf Urine WBC (0-4) /hpf Ur Squamous Epith Cells (0-4) /hpf Urine Bacteria (0) /hpf Urine Mucus (None) /hpf Ur Culture Indicated? Ur Random Creatinine (28.0-217.0) mg/dL Ur Random Sodium mmol/L Urine Urea Nitrogen mg/dL Random Vancomycin ug/mL 05/12/22 05/12/22 05/12/22 Range/Units 18:10 18:38 20:33 WBC (4.5-11.0) K/mcL RBC (3.59-5.38) M/mcL Hgb (11.2-15.7) g/dL Hct (34.1-44.9) % POC Hct (36-48) MCV (80.0-100.0) fL MCH (26.0-34.0) pg MCHC (31.0-36.0) g/dL RDW (11.5-14.5) % Plt Count (140-440) K/mcL MPV (7.4-10.4) fL Immature Gran % (Auto) (0.0-0.5) % Neut % (Auto) (38.0-78.0) % Lymph % (Auto) (15.5-49.0) % Payne % (Auto) (1.0-12.0) % Eos % (Auto) (0.0-7.0) % Baso % (Auto) (0.0-2.0) % Lymph # (Auto) (1.50-4.80) K/mcL Payne # (Auto) (0.10-0.90) K/mcL Eos # (Auto) (0.00-0.70) K/mcL Baso # (Auto) (0.00-0.30) K/mcL Immature Gran # (0.00-0.05) K/mcl Absolute Neutrophils (1.80-8.00) K/mcL POC VBG pH 7.49 H (7.32-7.42) POC VBG pCO2 at Temp 37.2 L (41-51) POC VBG pO2 32 (25-40) POC VBG HCO3 28.1 H (24-28) POC VBG Total CO2 29.0 (25-29) POC Venous O2 Sat 66.0 (40-70) POC VBG Base Excess 5.0 H* (-2-2) VBG Lactic Acid 1.8 (0.5-2) POC Sodium (133-145) Sodium (133-145) mmol/L POC Potassium (3.3-5.1) Potassium (3.3-5.1) mmol/L POC Chloride (96-108) Chloride (96-108) mmol/L Carbon Dioxide (22-30) mmol/L POC Total CO2 (22-30) Anion Gap (8.0-16.0) POC BUN (6-20) BUN (8-23) mg/dL Creatinine (0.6-1.1) mg/dL POC Creatinine (0.6-1.2) GFR Calculation Glucose (70-105) mg/dL POC Glucose (70-105) Uric Acid (2.5-8.0) mg/dL Calcium (8.6-10.4) mg/dL POC WB Ioniz Calcium (1.16-1.32) Phosphorus (2.5-4.5) mg/dL Magnesium (1.6-2.5) mg/dL Total Bilirubin (0.1-1.0) mg/dL Direct Bilirubin (<0.3) mg/dL GGT (5-36) U/L AST (<32) U/L ALT (<40) U/L Alkaline Phosphatase (39-117) U/L Ammonia 21 (11-51) umol/L Lactate Dehydrogenase (135-225) U/L Total Protein (5.9-8.4) gm/dL Albumin (3.2-5.2) gm/dL Globulin (2.2-3.7) gm/dL Albumin/Globulin Ratio (1.0-2.3) Triglycerides (<150) mg/dL Urine Color Yellow Urine Appearance Clear (Clear) Urine pH 6.0 (5.0-9.0) Ur Specific [place] 1.015 (1.000-1.035) Urine Protein 100 mg/dl A (Negative) mg/dL Urine Glucose (UA) Negative (Negative) mg/dL Urine Ketones Negative (Negative) mg/dL Urine Occult Blood Moderate A (Negative) cookie/mcL Urine Nitrate Negative (Negative) Urine Bilirubin Negative (Negative) mg/dL Urine Urobilinogen Normal mg/dL Ur Leukocyte Esterase Trace A (Negative) /uL Urine RBC 7 H (0-3) /hpf Urine WBC 8 H (0-4) /hpf Ur Squamous Epith Cells 2 (0-4) /hpf Urine Bacteria None (0) /hpf Urine Mucus Few A (None) /hpf Ur Culture Indicated? No Ur Random Creatinine (28.0-217.0) mg/dL Ur Random Sodium mmol/L Urine Urea Nitrogen mg/dL Random Vancomycin ug/mL 05/13/22 05/13/22 05/13/22 Range/Units 14:35 18:40 18:40 WBC (4.5-11.0) K/mcL RBC (3.59-5.38) M/mcL Hgb (11.2-15.7) g/dL Hct (34.1-44.9) % POC Hct 27.0 L (36-48) MCV (80.0-100.0) fL MCH (26.0-34.0) pg MCHC (31.0-36.0) g/dL RDW (11.5-14.5) % Plt Count (140-440) K/mcL MPV (7.4-10.4) fL Immature Gran % (Auto) (0.0-0.5) % Neut % (Auto) (38.0-78.0) % Lymph % (Auto) (15.5-49.0) % Payne % (Auto) (1.0-12.0) % Eos % (Auto) (0.0-7.0) % Baso % (Auto) (0.0-2.0) % Lymph # (Auto) (1.50-4.80) K/mcL Payne # (Auto) (0.10-0.90) K/mcL Eos # (Auto) (0.00-0.70) K/mcL Baso # (Auto) (0.00-0.30) K/mcL Immature Gran # (0.00-0.05) K/mcl Absolute Neutrophils (1.80-8.00) K/mcL POC VBG pH (7.32-7.42) POC VBG pCO2 at Temp (41-51) POC VBG pO2 (25-40) POC VBG HCO3 (24-28) POC VBG Total CO2 (25-29) POC Venous O2 Sat (40-70) POC VBG Base Excess (-2-2) VBG Lactic Acid (0.5-2) POC Sodium 138 (133-145) Sodium (133-145) mmol/L POC Potassium 3.8 (3.3-5.1) Potassium (3.3-5.1) mmol/L POC Chloride 104 (96-108) Chloride (96-108) mmol/L Carbon Dioxide (22-30) mmol/L POC Total CO2 23.0 (22-30) Anion Gap (8.0-16.0) POC BUN 49 H (6-20) BUN (8-23) mg/dL Creatinine (0.6-1.1) mg/dL POC Creatinine 1.4 H (0.6-1.2) GFR Calculation Glucose (70-105) mg/dL POC Glucose 85 (70-105) Uric Acid (2.5-8.0) mg/dL Calcium (8.6-10.4) mg/dL POC WB Ioniz Calcium 1.12 L (1.16-1.32) Phosphorus (2.5-4.5) mg/dL Magnesium (1.6-2.5) mg/dL Total Bilirubin 1.5 H (0.1-1.0) mg/dL Direct Bilirubin 1.1 H (<0.3) mg/dL GGT (5-36) U/L AST 295 H (<32) U/L ALT 348 H (<40) U/L Alkaline Phosphatase 148 H (39-117) U/L Ammonia (11-51) umol/L Lactate Dehydrogenase (135-225) U/L Total Protein 6.8 (5.9-8.4) gm/dL Albumin 3.3 (3.2-5.2) gm/dL Globulin 3.5 (2.2-3.7) gm/dL Albumin/Globulin Ratio (1.0-2.3) Triglycerides (<150) mg/dL Urine Color Urine Appearance (Clear) Urine pH (5.0-9.0) Ur Specific [place] (1.000-1.035) Urine Protein (Negative) mg/dL Urine Glucose (UA) (Negative) mg/dL Urine Ketones (Negative) mg/dL Urine Occult Blood (Negative) cookie/mcL Urine Nitrate (Negative) Urine Bilirubin (Negative) mg/dL Urine Urobilinogen mg/dL Ur Leukocyte Esterase (Negative) /uL Urine RBC (0-3) /hpf Urine WBC (0-4) /hpf Ur Squamous Epith Cells (0-4) /hpf Urine Bacteria (0) /hpf Urine Mucus (None) /hpf Ur Culture Indicated? Ur Random Creatinine (28.0-217.0) mg/dL Ur Random Sodium mmol/L Urine Urea Nitrogen mg/dL Random Vancomycin 7.4 ug/mL 05/14/22 05/14/22 05/14/22 Range/Units 07:06 13:03 14:09 WBC 9.4 (4.5-11.0) K/mcL RBC 3.28 L (3.59-5.38) M/mcL Hgb 9.5 L (11.2-15.7) g/dL Hct 29.5 L (34.1-44.9) % POC Hct (36-48) MCV 89.9 (80.0-100.0) fL MCH 29.0 (26.0-34.0) pg MCHC 32.2 (31.0-36.0) g/dL RDW 17.1 H (11.5-14.5) % Plt Count 184 (140-440) K/mcL MPV 9.7 (7.4-10.4) fL Immature Gran % (Auto) 0.4 (0.0-0.5) % Neut % (Auto) 79.6 H (38.0-78.0) % Lymph % (Auto) 9.2 L (15.5-49.0) % Payne % (Auto) 9.2 (1.0-12.0) % Eos % (Auto) 1.3 (0.0-7.0) % Baso % (Auto) 0.3 (0.0-2.0) % Lymph # (Auto) 0.87 L (1.50-4.80) K/mcL Payne # (Auto) 0.87 (0.10-0.90) K/mcL Eos # (Auto) 0.12 (0.00-0.70) K/mcL Baso # (Auto) 0.03 (0.00-0.30) K/mcL Immature Gran # 0.04 (0.00-0.05) K/mcl Absolute Neutrophils 7.48 (1.80-8.00) K/mcL POC VBG pH (7.32-7.42) POC VBG pCO2 at Temp (41-51) POC VBG pO2 (25-40) POC VBG HCO3 (24-28) POC VBG Total CO2 (25-29) POC Venous O2 Sat (40-70) POC VBG Base Excess (-2-2) VBG Lactic Acid (0.5-2) POC Sodium (133-145) Sodium 135 (133-145) mmol/L POC Potassium (3.3-5.1) Potassium 3.5 (3.3-5.1) mmol/L POC Chloride (96-108) Chloride 102 (96-108) mmol/L Carbon Dioxide 20 L (22-30) mmol/L POC Total CO2 (22-30) Anion Gap 13.0 (8.0-16.0) POC BUN (6-20) BUN 44 H (8-23) mg/dL Creatinine 1.4 H (0.6-1.1) mg/dL POC Creatinine (0.6-1.2) GFR Calculation 34 Glucose 78 (70-105) mg/dL POC Glucose (70-105) Uric Acid 6.1 (2.5-8.0) mg/dL Calcium 8.6 (8.6-10.4) mg/dL POC WB Ioniz Calcium (1.16-1.32) Phosphorus 3.5 (2.5-4.5) mg/dL Magnesium 2.2 (1.6-2.5) mg/dL Total Bilirubin 0.8 (0.1-1.0) mg/dL Direct Bilirubin 0.5 H (<0.3) mg/dL GGT 170 H (5-36) U/L AST 200 H (<32) U/L ALT 278 H (<40) U/L Alkaline Phosphatase 137 H (39-117) U/L Ammonia (11-51) umol/L Lactate Dehydrogenase 195 (135-225) U/L Total Protein 6.3 (5.9-8.4) gm/dL Albumin 3.0 L (3.2-5.2) gm/dL Globulin 3.3 (2.2-3.7) gm/dL Albumin/Globulin Ratio 0.9 L (1.0-2.3) Triglycerides 49 (<150) mg/dL Urine Color Urine Appearance (Clear) Urine pH (5.0-9.0) Ur Specific [place] (1.000-1.035) Urine Protein (Negative) mg/dL Urine Glucose (UA) (Negative) mg/dL Urine Ketones (Negative) mg/dL Urine Occult Blood (Negative) cookie/mcL Urine Nitrate (Negative) Urine Bilirubin (Negative) mg/dL Urine Urobilinogen mg/dL Ur Leukocyte Esterase (Negative) /uL Urine RBC (0-3) /hpf Urine WBC (0-4) /hpf Ur Squamous Epith Cells (0-4) /hpf Urine Bacteria (0) /hpf Urine Mucus (None) /hpf Ur Culture Indicated? Ur Random Creatinine (28.0-217.0) mg/dL Ur Random Sodium 45 mmol/L Urine Urea Nitrogen mg/dL Random Vancomycin ug/mL 05/14/22 05/14/22 Range/Units 14:09 14:09 WBC (4.5-11.0) K/mcL RBC (3.59-5.38) M/mcL Hgb (11.2-15.7) g/dL Hct (34.1-44.9) % POC Hct (36-48) MCV (80.0-100.0) fL MCH (26.0-34.0) pg MCHC (31.0-36.0) g/dL RDW (11.5-14.5) % Plt Count (140-440) K/mcL MPV (7.4-10.4) fL Immature Gran % (Auto) (0.0-0.5) % Neut % (Auto) (38.0-78.0) % Lymph % (Auto) (15.5-49.0) % Payne % (Auto) (1.0-12.0) % Eos % (Auto) (0.0-7.0) % Baso % (Auto) (0.0-2.0) % Lymph # (Auto) (1.50-4.80) K/mcL Payne # (Auto) (0.10-0.90) K/mcL Eos # (Auto) (0.00-0.70) K/mcL Baso # (Auto) (0.00-0.30) K/mcL Immature Gran # (0.00-0.05) K/mcl Absolute Neutrophils (1.80-8.00) K/mcL POC VBG pH (7.32-7.42) POC VBG pCO2 at Temp (41-51) POC VBG pO2 (25-40) POC VBG HCO3 (24-28) POC VBG Total CO2 (25-29) POC Venous O2 Sat (40-70) POC VBG Base Excess (-2-2) VBG Lactic Acid (0.5-2) POC Sodium (133-145) Sodium (133-145) mmol/L POC Potassium (3.3-5.1) Potassium (3.3-5.1) mmol/L POC Chloride (96-108) Chloride (96-108) mmol/L Carbon Dioxide (22-30) mmol/L POC Total CO2 (22-30) Anion Gap (8.0-16.0) POC BUN (6-20) BUN (8-23) mg/dL Creatinine (0.6-1.1) mg/dL POC Creatinine (0.6-1.2) GFR Calculation Glucose (70-105) mg/dL POC Glucose (70-105) Uric Acid (2.5-8.0) mg/dL Calcium (8.6-10.4) mg/dL POC WB Ioniz Calcium (1.16-1.32) Phosphorus (2.5-4.5) mg/dL Magnesium (1.6-2.5) mg/dL Total Bilirubin (0.1-1.0) mg/dL Direct Bilirubin (<0.3) mg/dL GGT (5-36) U/L AST (<32) U/L ALT (<40) U/L Alkaline Phosphatase (39-117) U/L Ammonia (11-51) umol/L Lactate Dehydrogenase (135-225) U/L Total Protein (5.9-8.4) gm/dL Albumin (3.2-5.2) gm/dL Globulin (2.2-3.7) gm/dL Albumin/Globulin Ratio (1.0-2.3) Triglycerides (<150) mg/dL Urine Color Urine Appearance (Clear) Urine pH (5.0-9.0) Ur Specific [place] (1.000-1.035) Urine Protein (Negative) mg/dL Urine Glucose (UA) (Negative) mg/dL Urine Ketones (Negative) mg/dL Urine Occult Blood (Negative) cookie/mcL Urine Nitrate (Negative) Urine Bilirubin (Negative) mg/dL Urine Urobilinogen mg/dL Ur Leukocyte Esterase (Negative) /uL Urine RBC (0-3) /hpf Urine WBC (0-4) /hpf Ur Squamous Epith Cells (0-4) /hpf Urine Bacteria (0) /hpf Urine Mucus (None) /hpf Ur Culture Indicated? Ur Random Creatinine 49.2 (28.0-217.0) mg/dL Ur Random Sodium mmol/L Urine Urea Nitrogen 880 mg/dL Random Vancomycin ug/mL ED POC Tests ED POC Tests: ARIEL - Influenza A Negative ARIEL - Influenza B Negative ARIEL - SARS Antigen Negative Radiology Data Radiology results reviewed: Yes I reviewed the patient's radiology results. Radiology results narrative: Ordering Physician:Poncho Kemp D.O. Date of Service:05/14/22 Procedure(s):MR MRCP INDICATION: cbd dilatation TECHNIQUE: Routine noncontrast enhanced MRCP COMPARISON: Previous CT scan dated 05/12/2022 FINDINGS: There are small filling defects within the dependent portion of the gallbladder lumen. Appearance is consistent with cholelithiasis. No evidence for gallbladder wall thickening or pericholecystic fluid on present examination. No intra or extrahepatic bile duct dilatation. Common bile duct measures 4 mm. Examination is somewhat suboptimal due to inability this patient to suspend respiration. No focal intrahepatic abnormality identified. Pancreas and spleen are negative. Adrenal glands are negative. There is a 4 cm right renal cyst. No solid renal mass. Renal pelves are prominent bilaterally. Right renal calyces also appear somewhat prominent. This is unchanged since 05/12/2022 There is a small right pleural effusion IMPRESSION: 1. Cholelithiasis 2. No dilated bile duct. No choledocholithiasis 3. No pericholecystic fluid. No evidence for cholecystitis 4. Benign right renal cyst. Prominent renal pelves bilaterally 5. Small right pleural effusion 6. Technically limited evaluation as this patient was unable to suspend respiration Interpreted and Authenticated by: James Perez 05/14/22 [id number] Cellars Supervisor: <Electronically signed by James Perez M.D. in [place]> 05/14/22 1326 Discharge Plan Patient/Caregiver Discharge Instructions Pt seen by SPECIAL SKILLS OFFICER/PA only: No Clinical Impression: Cellulitis of leg, right, Acute cholecystitis, Hyperbilirubinemia, Transaminitis, Common bile duct dilation, Acute dehydration Sepsis Qualifiers: Sepsis type: sepsis due to unspecified organism Sepsis acute organ dysfunction status: without acute organ dysfunction Qualified Code(s): A41.9 - Sepsis, unspecified organism Patient Disposition: Xfer As Inpt ([facility]) Condition: Fair Discharge Date/Time: 05/14/22 15:04
[2022-05-14 08:28] LABS: ALT/SGPT 278 U/L (<40); AST/SGOT 200 U/L (<32); Albumin/Globulin Ratio 0.9 (1.0-2.3); Alkaline Phosphatase 137 U/L (39-117); Bilirubin,Direct 0.5 mg/dL (<0.3); Bilirubin,Total 0.8 mg/dL (0.1-1.0); Blood Urea Nitrogen 44 mg/dL (8-23); Calcium 8.6 mg/dL (8.6-10.4); Carbon Dioxide 20 mmol/L (22-30); Chloride 102 mmol/L (96-108); Globulin 3.3 gm/dL (2.2-3.7); Glomerular Filtration Rate 34; Glucose 78 mg/dL (70-105); Lactate Dehydrogenase 195 U/L (135-225); Phosphorous 3.5 mg/dL (2.5-4.5); Triglycerides 49 mg/dL (<150); Uric Acid 6.1 mg/dL (2.5-8.0)
--- NOTE | 2022-05-14 09:13 | Internal Medicine Consult Note ---
HPI Data of Consult Consult date: 05/14/22 Primary Care Provider: Ponce Renae MD Consult Narrative History of present illness: 86-year-old female who presented to the ED on the evening of the for weakness and lethargy and decreased appetite and daughter was worried about the leg stating when it becomes edematous it starts weeping and appeared more red than usual. She had 1 episode of nausea vomiting after her daughter fed her. Patient has a history of dementia depression anxiety chronic anemia hypothyroidism chronic kidney disease. She was admitted in the hospital in mid April for a right lower extremity cellulitis along the andresw. On admission she was mildly tachycardic and tachypneic and there was concern for sepsis. She was also febrile at 101.3 when she came in. Lactate was 1.8. Possible sources considered in ED were the leg versus other. Further work-up revealed transaminitis and hyperbilirubinemia and a possible cholecystitis. There is also dilated intra hepatic and extrahepatic ducts. This was discussed with surgeon who recommended ERCP versus MRCP, transfer discussion was started but no beds available. Able to get an MRCP ordered for today. Patient denying abdominal pain at this time. Since her arrival to the ED she had been on IV fluids and antibiotics. Her bilirubin has improved as well as her liver enzymes are improving although still elevated. Patient overall feels improved. Awaiting MRCP results for action of care. Case was also discussed with Dr. Ortiz. Review of Systems: Positives as above. Denies headache/fever/chills/nausea/vomiting/chest or ab dominal pain/cough/dyspnea/diarrhea. 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, unspecified portion (Chronic) Constipation (Chronic) Depression (Chronic) Gastroesophageal reflux (Chronic) Hallux valgus (Chronic 09/13/14) Hyposmolality and/or hyponatremia (Chronic 10/29/14) Hypothyroidism (Chronic) Memory loss (Chronic) Obesity (Chronic) Osteoarthritis, multiple sites (Chronic) Osteoarthritis, lower leg, localized (Chronic) Hemorrhoids (Chronic 08/23/15) Adenomatous colon polyp (Chronic) Carcinoid tumor (Chronic) Infection of nailbed of toe of left foot (Acute) Encounter for Medicare annual wellness exam (Chronic) Urinary tract infection (Acute) Dysuria (Acute) Effusion, right shoulder (Acute) Pain due to dental caries (Acute) Cough (Acute) Distal radial fracture (Acute) Fall from slip, trip, or stumble (Acute) Pain, dental (Acute) Abscess, dental (Acute) SBO (small bowel obstruction) (Acute) Acute hyponatremia (Acute) Urinary retention (Acute) Partial small bowel obstruction (Acute) Volume depletion, gastrointestinal loss (Acute) Postoperative ileus (Acute) Elevated troponin (Acute) Anemia (Acute) Hyponatremia (Acute) Medicare annual wellness visit, initial (Acute) Urge incontinence (Acute) Urge incontinence (Acute) Annual physical exam (Acute) Dementia (Acute) Agitation due to dementia (Acute) Insomnia (Acute) Contusion of right foot (Acute) Bilateral leg edema (Acute) Bilateral leg edema (Acute) UTI (urinary tract infection) (Acute) Generalized anxiety disorder (Acute) Cognitive and behavioral changes (Acute) Mood changes (Acute) Venous insufficiency (Acute) OCD (obsessive compulsive disorder) (Acute) Insomnia (Acute) AMS (altered mental status) (Acute) Acute hyponatremia (Acute) Leg edema (Acute) Toxic metabolic encephalopathy (Acute) Fall (Acute) Hypertension (Acute) Stasis dermatitis of both legs (Acute) Medical History Abdominal pain Abnormal glucose Adenomatous colon polyp Agitation due to dementia Anemia Annual physical exam Anxiety Atrophic vaginitis Back pain 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 Chronic interstitial cystitis (05/26/11) Colon polyp, hyperplastic (08/23/15) Constipation Dementia Depression PHQ 9 is 5, cut back dose of citalopram to 10mg qd. Diverticulitis of colon Diverticulosis Dysuria Elevated troponin Encounter for Medicare annual wellness exam Gastroesophageal reflux Hallux valgus (09/13/14) Dr. Mcdonough Hematuria (12/05/14) Hemorrhoids (08/23/15) Colonoscopy with polypectomy done, lower GI bleed resolved. Herpes zoster (12/05/14) History of hepatitis A hx of Hep A in ' History of lymphoid leukemia Hyponatremia Hyposmolality and/or hyponatremia (10/29/14) Hypothyroidism Infection of nailbed of toe of left foot Insomnia Leukopenia (12/20/14) Lower gastrointestinal hemorrhage Likely int hemorrhois vs diverticular bleed, rx with hydrocortisonecream, h/h inr stable Urgent referral to GI given h/o TA in past, as well as carcinoid tumor. 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 History of carcinoid tumor in small bowel resected 10/2011 History of abdominal surgery Abdominal hernia repair History of section 1964 History of hernia repair History of hysterectomy 1979 History of hysterectomy History of resection of small bowel 07/2020-small bowel adhesiolysis and small bowel resection with reanastomosis. Family History Father Malignant neoplasm of lung Social History marital status: legally smoking status: Never smoker alcohol intake frequency: does not drink substance use type: does not use additional history: Patient uses a walker and lives at home with her daughter MEDS/ALLERGIES Home Medications and Allergies Home Medications Medication Instructions Recorded Confirmed Type flaxseed oil 1,000 mg capsule 1,000 mg PO QDAY 09/03/15 04/29/22 History lactobacillus combination no.8 3 3,000 mmu cells PO QDAY 09/03/15 04/29/22 History billion cell capsule prenat.vits,jenna,efc-dchf-ectam 1 tab PO QDAY 09/03/15 04/29/22 History vitamin B complex 1 tab-cap PO QDAY 09/03/15 04/29/22 History sodium chloride 1 gram tablet 1,000 mg PO QDAY #1 tab 11/09/19 04/29/22 Rx polyethylene glycol 3350 17 17 g PO QDAY 07/19/20 04/29/22 History gram/dose oral powder (Miralax) alendronate 70 mg tablet 70 mg PO QWEEK #12 tabs 01/15/22 04/29/22 Rx aripiprazole 5 mg tablet (Abilify) 5 mg PO QHS #30 tabs 04/10/22 05/13/22 Rx quetiapine 25 mg tablet 25 mg PO BID #30 tabs 04/18/22 04/29/22 Rx divalproex 125 mg tablet,delayed 125 mg PO BID #60 tabs 04/23/22 04/29/22 Rx release (Depakote) clobetasol 0.05 % topical cream 1 applic topical BID 2 weeks #30 04/29/22 04/29/22 Rx grams clonazepam 0.5 mg tablet 0.5 mg PO BID PRN anxiety #30 tabs 04/29/22 05/13/22 Rx torsemide 10 mg tablet 10 mg PO QAM #90 tabs 04/29/22 05/13/22 Rx urea 15 gram oral powder packet 0.5 packet PO QDAY #16 ea 04/30/22 04/30/22 Rx (Ure-Na) levothyroxine 50 mcg tablet 50 mcg PO QDAY #30 tabs 05/12/22 05/12/22 Rx Allergies Allergy/AdvReac Type Severity Reaction Status Date / Time No Known Drug Allergies Allergy Verified 05/12/22 17:33 EXAM Constitutional Vitals: Temp Pulse Resp BP Pulse Ox O2 Del Method 97.6 F 78 24 H 125/57 97 05/13/22 08:13 05/14/22 08:44 05/14/22 08:44 05/14/22 08:31 05/14/22 08:44 05/12/22 17:33 Exam: General: Alert, Awake, No acute Distress, obese Eyes/N/T: EOMI, PERRL, Head/Neck: neck supple, normocephalic atraumatic CV: RRR, No murmurs, normal s1/s2 Pulm: Clear b/l, no wheezing/rhonchi/rales Abd: soft, nontender, +BS x4 Ext: no clubbing/cyanosis, 2+ b/l LE edema, right mid-andrews with minimal erythema around a scratch lisbet, nontender, no induration Neuro: Alert, no focal deficits, moves all extremities, CN 2-12 grossly intact, Skin: warm/dry DATA Data Completed and Pending Labs: Labs from last 24 hours 05/14/22 05/13/22 05/13/22 07:06 18:40 18:40 POC Hct POC Sodium Sodium 135 POC Potassium Potassium 3.5 POC Chloride Chloride 102 Carbon Dioxide 20 L POC Total CO2 Anion Gap 13.0 POC BUN BUN 44 H Creatinine 1.4 H POC Creatinine GFR Calculation 34 Glucose 78 POC Glucose Uric Acid 6.1 Calcium 8.6 POC WB Ioniz Calcium Phosphorus 3.5 Magnesium 2.2 Total Bilirubin 0.8 1.5 H Direct Bilirubin 0.5 H 1.1 H GGT 170 H AST 200 H 295 H ALT 278 H 348 H Alkaline Phosphatase 137 H 148 H Lactate Dehydrogenase 195 Total Protein 6.3 6.8 Albumin 3.0 L 3.3 Globulin 3.3 3.5 Albumin/Globulin Ratio 0.9 L Triglycerides 49 Random Vancomycin 7.4 05/13/22 14:35 POC Hct 27.0 L POC Sodium 138 Sodium POC Potassium 3.8 Potassium POC Chloride 104 Chloride Carbon Dioxide POC Total CO2 23.0 Anion Gap POC BUN 49 H BUN Creatinine POC Creatinine 1.4 H GFR Calculation Glucose POC Glucose 85 Uric Acid Calcium POC WB Ioniz Calcium 1.12 L Phosphorus Magnesium Total Bilirubin Direct Bilirubin GGT AST ALT Alkaline Phosphatase Lactate Dehydrogenase Total Protein Albumin Globulin Albumin/Globulin Ratio Triglycerides Random Vancomycin Preliminary micro results at discharge 05/12/22 20:35 Blood Culture - Preliminary Blood Gram positive cocci 05/12/22 20:28 Blood Culture - Preliminary Blood Gram positive cocci A/P Narrative A/P Narrative: A: *Sepsis: suspect biliary/GB more than leg cellulitis *possible cholecystitis vs early cholangitis: *?RLE cellulitis: has been on abx for 36hrs -was admitted for cellulitis mid April *CHRIS on CKD III: 2/2 above *Anemia, chronic: *Dementia/depression/anxiety: *Obesity: *Hypothyroidism: *h/o SIADH: P: -MRCP -cont IV abx -IVF, monitor UOP -check FENa, hold torsemide for now -cont home psych meds -ppx: heparin Time Spent With Patient Time: Total time spent is greater than 50% in coordination of care (as documented) at patient's floor/unit and/or counseling patient: Total time spent with greater than 50% in coordination of care (as documented) at patient's floor/unit and/or counseling patient:: 50 - 70 minutes
[2022-05-14] MEDS: DIVALPROEX 125 MG CAP.SPRINK PO SCH ×2 (12:50→20:45)
[2022-05-14] MEDS: PIPERACILLIN SODIUM/TAZOBACTAM 2.25 GM in DEXTROSE 5% IN WATER 50 ML IV SCH ×3 (12:55→23:58)
[2022-05-14] MEDS: DIVALPROEX SODIUM 250 MG TABLET PO SCH (13:04)
--- NOTE | 2022-05-14 13:30 | Magnetic Resonance Report ---
INDICATION: cbd dilatation TECHNIQUE: Routine noncontrast enhanced MRCP COMPARISON: Previous CT scan dated 05/12/2022 FINDINGS: There are small filling defects within the dependent portion of the gallbladder lumen. Appearance is consistent with cholelithiasis. No evidence for gallbladder wall thickening or pericholecystic fluid on present examination. No intra or extrahepatic bile duct dilatation. Common bile duct measures 4 mm. Examination is somewhat suboptimal due to inability this patient to suspend respiration. No focal intrahepatic abnormality identified. Pancreas and spleen are negative. Adrenal glands are negative. There is a 4 cm right renal cyst. No solid renal mass. Renal pelves are prominent bilaterally. Right renal calyces also appear somewhat prominent. This is unchanged since 05/12/2022 There is a small right pleural effusion IMPRESSION: 1. Cholelithiasis 2. No dilated bile duct. No choledocholithiasis 3. No pericholecystic fluid. No evidence for cholecystitis 4. Benign right renal cyst. Prominent renal pelves bilaterally 5. Small right pleural effusion 6. Technically limited evaluation as this patient was unable to suspend respiration Interpreted and Authenticated by: James Perez 05/14/22
[2022-05-14 13:39] LABS: Basophils # (Auto) 0.03 K/mcL (0.00-0.30); Basophils % (Auto) 0.3 % (0.0-2.0); Eosinophils # (Auto) 0.12 K/mcL (0.00-0.70); Eosinophils % (Auto) 1.3 % (0.0-7.0); Hematocrit 29.5 % (34.1-44.9); Hemoglobin 9.5 g/dL (11.2-15.7); Lymphocytes # (Auto) 0.87 K/mcL (1.50-4.80); Lymphocytes % (Auto) 9.2 % (15.5-49.0); Mean Cell Volume 89.9 fL (80.0-100.0); Mean Corpuscular HGB Conc 32.2 g/dL (31.0-36.0); Mean Platelet Volume 9.7 fL (7.4-10.4); Monocytes # (Auto) 0.87 K/mcL (0.10-0.90); Monocytes % (Auto) 9.2 % (1.0-12.0); Neutrophils % (Auto) 79.6 % (38.0-78.0); Platelet Count 184 K/mcL (140-440); RBC 3.28 M/mcL (3.59-5.38); Red Cell Distribution Width 17.1 % (11.5-14.5); WBC 9.4 K/mcL (4.5-11.0)
[2022-05-14] MEDS: 0.9 % SODIUM CHLORIDE 10 ML SYRINGE IV SCH ×2 (14:53→22:41)
--- NOTE | 2022-05-14 16:41 | XRay Report ---
INDICATION: BRONCHITIS TECHNIQUE: AP portable chest x-ray COMPARISON: Previous chest x-rays dated 05/12/2022, 02/20/2022, 07/07/2020 FINDINGS: There is mild cardiomegaly. There are bilateral diffuse pulmonary parenchymal infiltrates. Appearance is consistent with pulmonary edema due to congestive heart failure or volume overload. No parenchymal consolidation. Clinical correlation and follow-up radiograph recommended. IMPRESSION: Bilateral pulmonary parenchymal infiltrates consistent with pulmonary edema from congestive heart failure or volume overload Interpreted and Authenticated by: James Perez 05/14/22
[2022-05-14] MEDS ORDERED: ALBUMIN HUMAN 12.5 GM/50 ML BAG IV ONE ×2 (16:58→23:00)
[2022-05-14] MEDS ORDERED: FUROSEMIDE 40 MG/4 ML VIAL IV ONE ×2 (16:58→23:00)
[2022-05-14] MEDS ORDERED: VANCOMYCIN PER PHARMACY IV SCH (17:45)
--- NOTE | 2022-05-14 18:47 | General Surg History&Physical ---
HPI History of Present Illness Patient information: Note initiated : 05/14/22 at 6:32 pm Service Date, if different from initiated Date: [] Patient: Brandy Swanson a 86 y/o F admitted on 05/14/22 for weakness. Chief Complaint: [] Chief complaint: Cholelithiasis with cholecystitis; transaminitis; surgery right colitis RLE History of present illness: Ms. Swanson is a 86 year old F admitted for treatment of acute cholecystitis with cholelithiasis. The patient was initially seen in the emergency room on 05/12/2022 with complaint of progressive weakness nausea and vomiting. She was noted to be dehydrated and there was evidence of elevation of her transaminases and bilirubin. CT of the abdomen showed gallstones layering in the fundus of the gallbladder but she had dilated ducts suggestive of common bile duct stone. Arrangements were made for her to be transferred to a tertiary center but there was never an accepting facility or physician. Repeat enzymes on 810 showed decrease and bilirubin and transaminases. Her blood cultures grew out gram- positive cocci and it was noted that she had an area on her right lower extremity with cellulitis and this was thought to be the source of this bacteremia. She was started on Zosyn and vancomycin. I was contacted by the daughter last evening and ask if I would accept her for care however I told her that I would need to have evidence that she did not have a common bile duct stone or that her transaminases were trending down with. An MRCP was done earlier today and this is essentially normal with normal size ducts and no filling defect in the common bile duct. Her transaminases have trended down further. She is a candidate for cholecystectomy though she does have an element of pulmonary congestion. Hopefully we can diurese her tonight and get a echocardiogram to evaluate the severity of her myocardial function. She has had multiple abdominal surgeries and had significant adhesions on operation in 2019. She may need to have an open procedure but this would not present a problem. This was discussed with the daughter and she is agreeable to proceed. I will discuss this with Dr. Samuel but it appears that he is no longer on the case since she is to be transferred. Review of Systems All systems: reviewed and no additional remarkable complaints except as stated (Positive responses are from the daughter) Constitutional Constitutional: Present fatigue, lethargy, malaise, weakness and weight gain EENT Eyes: Absent loss of vision Ears: Present decreased hearing Nose, mouth and throat: Present abnormal hearing Cardiovascular Cardiovascular: Present dyspnea on exertion, irregular heart rhythm, leg edema, pedal edema and rapid heart rate; Absent chest pain with activity Respiratory Respiratory: Present cough, dyspnea, dyspnea on exertion and chest congestion Gastrointestinal Gastrointestinal: Present abdominal pain, change in bowel habits, constipation and nausea Genitourinary Genitourinary: Present difficulty voiding, post void dribbling, urinary frequency, urinary incontinence and urinary urgency Musculoskeletal Musculoskeletal: Present abnormal gait, arthralgias, joint swelling, muscle weakness and myalgias Integumentary Integumentary: Present non-healing lesions, sores and swelling Additional comments: Cellulitis right lower extremity Neurological Neurological: Present abnormal gait, abnormal hearing, behavioral changes, memor y loss and weakness Hematologic/Lymphatic Hematologic/Lymphatic: Absent easy bleeding, easy bruising or lymphadenopathy Allergic/Immunologic Allergic/Immunologic: Present GI upset with certain foods PFSH PFSH All Active Problems (Updated 05/14/22 @ 18:54 by Carroll Ortiz MD) Primary degenerative dementia (Acute) Cholelithiasis and cholecystitis without obstruction (Acute) Sepsis (Acute) Cellulitis of leg, right (Acute) Acute cholecystitis (Acute) Hyperbilirubinemia (Acute) Transaminitis (Acute) Common bile duct dilation (Acute) Acute dehydration (Acute) Hospital discharge follow-up (Acute) Anxiety (Chronic) Atrophic vaginitis (Chronic) Back pain (Chronic) 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, unspecified portion (Chronic) Constipation (Chronic) Depression (Chronic) Gastroesophageal reflux (Chronic) Hallux valgus (Chronic 09/13/14) Hyposmolality and/or hyponatremia (Chronic 10/29/14) Hypothyroidism (Chronic) Memory loss (Chronic) Obesity (Chronic) Osteoarthritis, multiple sites (Chronic) Osteoarthritis, lower leg, localized (Chronic) Hemorrhoids (Chronic 08/23/15) Adenomatous colon polyp (Chronic) Carcinoid tumor (Chronic) Infection of nailbed of toe of left foot (Acute) Encounter for Medicare annual wellness exam (Chronic) Urinary tract infection (Acute) Dysuria (Acute) Effusion, right shoulder (Acute) Pain due to dental caries (Acute) Cough (Acute) Distal radial fracture (Acute) Fall from slip, trip, or stumble (Acute) Pain, dental (Acute) Abscess, dental (Acute) SBO (small bowel obstruction) (Acute) Acute hyponatremia (Acute) Urinary retention (Acute) Partial small bowel obstruction (Acute) Volume depletion, gastrointestinal loss (Acute) Postoperative ileus (Acute) Elevated troponin (Acute) Anemia (Acute) Hyponatremia (Acute) Medicare annual wellness visit, initial (Acute) Urge incontinence (Acute) Urge incontinence (Acute) Annual physical exam (Acute) Dementia (Acute) Agitation due to dementia (Acute) Insomnia (Acute) Contusion of right foot (Acute) Bilateral leg edema (Acute) Bilateral leg edema (Acute) UTI (urinary tract infection) (Acute) Generalized anxiety disorder (Acute) Cognitive and behavioral changes (Acute) Mood changes (Acute) Venous insufficiency (Acute) OCD (obsessive compulsive disorder) (Acute) Insomnia (Acute) AMS (altered mental status) (Acute) Acute hyponatremia (Acute) Leg edema (Acute) Toxic metabolic encephalopathy (Acute) Fall (Acute) Hypertension (Acute) Stasis dermatitis of both legs (Acute) Medical History Abdominal pain Abnormal glucose Adenomatous colon polyp Agitation due to dementia Anemia Annual physical exam Anxiety Atrophic vaginitis Back pain 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 Chronic interstitial cystitis (05/26/11) Colon polyp, hyperplastic (08/23/15) Constipation Dementia Depression PHQ 9 is 5, cut back dose of citalopram to 10mg qd. Diverticulitis of colon Diverticulosis Dysuria Elevated troponin Encounter for Medicare annual wellness exam Gastroesophageal reflux Hallux valgus (09/13/14) Dr. Mcdonough Hematuria (12/05/14) Hemorrhoids (08/23/15) Colonoscopy with polypectomy done, lower GI bleed resolved. Herpes zoster (12/05/14) History of hepatitis A hx of Hep A in 20's History of lymphoid leukemia Hyponatremia Hyposmolality and/or hyponatremia (10/29/14) Hypothyroidism Infection of nailbed of toe of left foot Insomnia Leukopenia (12/20/14) Lower gastrointestinal hemorrhage Likely int hemorrhois vs diverticular bleed, rx with hydrocortisonecream, h/h inr stable Urgent referral to GI given h/o TA in past, as well as carcinoid tumor. 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 History of carcinoid tumor in small bowel resected 10/2011 History of abdominal surgery Abdominal hernia repair History of section 1964 History of hernia repair History of hysterectomy 1979 History of hysterectomy History of resection of small bowel 07/2020-small bowel adhesiolysis and small bowel resection with reanastomosis. Family History Father Malignant neoplasm of lung Social History marital status: legally smoking status: Never smoker alcohol intake frequency: does not drink substance use type: does not use additional history: Patient uses a walker and lives at home with her daughter MEDS/ALLERGIES Home Medications and Allergies Home Medications Medication Instructions Recorded Confirmed Type flaxseed oil 1,000 mg capsule 1,000 mg PO QDAY 09/03/15 05/14/22 History lactobacillus combination no.8 3 3,000 mmu cells PO QDAY 09/03/15 05/14/22 History billion cell capsule prenat.vits,jenna,mxs-dmoh-apnwe 1 tab PO QDAY 09/03/15 05/14/22 History vitamin B complex 1 tab-cap PO QDAY 09/03/15 05/14/22 History polyethylene glycol 3350 17 17 g PO QDAY 07/19/20 05/14/22 History gram/dose oral powder (Miralax) alendronate 70 mg tablet 70 mg PO QWEEK #12 tabs 01/15/22 05/14/22 Rx aripiprazole 5 mg tablet (Abilify) 5 mg PO QHS #30 tabs 04/10/22 05/14/22 Rx quetiapine 25 mg tablet 25 mg PO BID #30 tabs 04/18/22 05/14/22 Rx divalproex 125 mg tablet,delayed 125 mg PO BID #60 tabs 04/23/22 05/14/22 Rx release (Depakote) clobetasol 0.05 % topical cream 1 applic topical BID 2 weeks #30 04/29/22 05/14/22 Rx grams clonazepam 0.5 mg tablet 0.5 mg PO BID PRN anxiety #30 tabs 04/29/22 05/14/22 Rx torsemide 10 mg tablet 10 mg PO QAM #90 tabs 04/29/22 05/14/22 Rx urea 15 gram oral powder packet 0.5 packet PO QDAY #16 ea 04/30/22 05/14/22 Rx (Ure-Na) levothyroxine 50 mcg tablet 50 mcg PO QDAY #30 tabs 05/12/22 05/14/22 Rx Allergies Allergy/AdvReac Type Severity Reaction Status Date / Time No Known Drug Allergies Allergy Verified 05/12/22 17:33 Physical Examination Vital Signs Vital signs: Temp Pulse Resp BP Pulse Ox O2 Del Method 100.2 F H 79 18 148/75 95 05/14/22 16:00 05/14/22 16:00 05/14/22 16:00 05/14/22 16:00 05/14/22 16:00 05/14/22 16:00 General physical appearance General physical exam: well developed, well nourished, no distress, moderate pain, chronically ill and obese Eyes Eye exam: PERRL and normal ocular movement; negative icteric ENT ENT exam: normal mucosa and decreased hearing Head Head exam IM: Present atraumatic, normal inspection and normocephalic Neck Neck exam: no masses, no bruits, trachea midline, no lymphadenopathy and no venous distension Cardiovascular Cardiovascular exam IM: Present irregular rhythm, +S1, +S2 and tachycardia (Heart rate 110 and irregular); Absent JVD Respiratory Respiratory exam: normal expansion, normal respiratory effort and clear to auscultation Abdomen Abdomen: Present tender (Epigastrium and right upper abdomen) and distended Psychiatric Psychiatric: Present oriented to person and other; Absent oriented to place or memory intact Results Labs Result diagrams: 05/14/22 13:03 05/14/22 07:06 Labs: Abnormal lab results 05/13/22 05/14/22 05/14/22 Range/Units 18:40 07:06 13:03 RBC 3.28 L (3.59-5.38) M/mcL Hgb 9.5 L (11.2-15.7) g/dL Hct 29.5 L (34.1-44.9) % RDW 17.1 H (11.5-14.5) % Neut % (Auto) 79.6 H (38.0-78.0) % Lymph % (Auto) 9.2 L (15.5-49.0) % Lymph # (Auto) 0.87 L (1.50-4.80) K/mcL Carbon Dioxide 20 L (22-30) mmol/L BUN 44 H (8-23) mg/dL Creatinine 1.4 H (0.6-1.1) mg/dL Total Bilirubin 1.5 H (0.1-1.0) mg/dL Direct Bilirubin 1.1 H 0.5 H (<0.3) mg/dL GGT 170 H (5-36) U/L AST 295 H 200 H (<32) U/L ALT 348 H 278 H (<40) U/L Alkaline Phosphatase 148 H 137 H (39-117) U/L Albumin 3.0 L (3.2-5.2) gm/dL Albumin/Globulin Ratio 0.9 L (1.0-2.3) Diabetes panel 05/13/22 05/14/22 Range/Units 18:40 07:06 Sodium 135 (133-145) mmol/L Potassium 3.5 (3.3-5.1) mmol/L Chloride 102 (96-108) mmol/L Carbon Dioxide 20 L (22-30) mmol/L BUN 44 H (8-23) mg/dL Creatinine 1.4 H (0.6-1.1) mg/dL Glucose 78 (70-105) mg/dL Calcium 8.6 (8.6-10.4) mg/dL AST 295 H 200 H (<32) U/L ALT 348 H 278 H (<40) U/L Alkaline Phosphatase 148 H 137 H (39-117) U/L Total Protein 6.8 6.3 (5.9-8.4) gm/dL Albumin 3.3 3.0 L (3.2-5.2) gm/dL Triglycerides 49 (<150) mg/dL Calcium panel 05/13/22 05/14/22 Range/Units 18:40 07:06 Calcium 8.6 (8.6-10.4) mg/dL Phosphorus 3.5 (2.5-4.5) mg/dL Albumin 3.3 3.0 L (3.2-5.2) gm/dL Pituitary panel 05/14/22 Range/Units 07:06 Sodium 135 (133-145) mmol/L Potassium 3.5 (3.3-5.1) mmol/L Chloride 102 (96-108) mmol/L Carbon Dioxide 20 L (22-30) mmol/L BUN 44 H (8-23) mg/dL Creatinine 1.4 H (0.6-1.1) mg/dL Glucose 78 (70-105) mg/dL Calcium 8.6 (8.6-10.4) mg/dL Adrenal panel 05/13/22 05/14/22 Range/Units 18:40 07:06 Sodium 135 (133-145) mmol/L Potassium 3.5 (3.3-5.1) mmol/L Chloride 102 (96-108) mmol/L Carbon Dioxide 20 L (22-30) mmol/L BUN 44 H (8-23) mg/dL Creatinine 1.4 H (0.6-1.1) mg/dL Glucose 78 (70-105) mg/dL Calcium 8.6 (8.6-10.4) mg/dL Total Bilirubin 1.5 H 0.8 (0.1-1.0) mg/dL AST 295 H 200 H (<32) U/L ALT 348 H 278 H (<40) U/L Alkaline Phosphatase 148 H 137 H (39-117) U/L Total Protein 6.8 6.3 (5.9-8.4) gm/dL Albumin 3.3 3.0 L (3.2-5.2) gm/dL All other labs normal. 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, unspecified portion: Status: Chronic (7) Constipation: Status: Chronic Qualifiers: Constipation type: slow transit constipation Qualified Code(s): K59.01 - Slow transit constipation (8) Primary degenerative dementia: Status: Acute (9) Cognitive and behavioral changes: Status: Acute Plan Patient will be continued on present therapy She will be vigorously diuresed tonight Echocardiogram will be done Daughter is counseled for possible laparoscopic cholecystectomy but is informed that it may have to be done open because of her prior abdominal surgery and funmilayo hernandez Fleets enema x2 tonight because of fecal impaction Time Spent With Patient Time: Total time spent is greater than 50% in coordination of care (as documented) at patient's floor/unit and/or counseling patient:
[2022-05-14] MEDS: VANCOMYCIN 500 MG in 0.9 % SODIUM CHLORIDE 100 ML IV SCH (19:12)
[2022-05-14] MEDS: HEPARIN 5,000 UNIT/ML VIAL SQ SCH (20:45)
[2022-05-14] MEDS: QUEtiapine 25 MG TABLET PO SCH (20:45)
[2022-05-14] MEDS: ARIPIPRAZOLE 5 MG TABLET PO SCH (20:45)
[2022-05-15] MEDS: PIPERACILLIN SODIUM/TAZOBACTAM 2.25 GM in DEXTROSE 5% IN WATER 50 ML IV SCH ×3 (05:39→16:43)
[2022-05-15] MEDS: 0.9 % SODIUM CHLORIDE 10 ML SYRINGE IV SCH ×3 (05:40→21:01)
[2022-05-15 06:30] LABS: Basophils # (Auto) 0.03 K/mcL (0.00-0.30); Basophils % (Auto) 0.4 % (0.0-2.0); Eosinophils # (Auto) 0.11 K/mcL (0.00-0.70); Eosinophils % (Auto) 1.4 % (0.0-7.0); Hemoglobin 9.5 g/dL (11.2-15.7); Lymphocytes # (Auto) 0.86 K/mcL (1.50-4.80); Lymphocytes % (Auto) 10.8 % (15.5-49.0); Mean Cell Volume 92.3 fL (80.0-100.0); Mean Corpuscular HGB Conc 31.7 g/dL (31.0-36.0); Mean Platelet Volume 9.7 fL (7.4-10.4); Monocytes # (Auto) 0.89 K/mcL (0.10-0.90); Monocytes % (Auto) 11.2 % (1.0-12.0); Neutrophils % (Auto) 75.8 % (38.0-78.0); Platelet Count 168 K/mcL (140-440); RBC 3.25 M/mcL (3.59-5.38); Red Cell Distribution Width 16.9 % (11.5-14.5); WBC 7.9 K/mcL (4.5-11.0)
[2022-05-15 07:02] LABS: ALT/SGPT 192 U/L (<40); AST/SGOT 104 U/L (<32); Albumin 3.1 gm/dL (3.2-5.2); Albumin/Globulin Ratio 0.9 (1.0-2.3); Alkaline Phosphatase 125 U/L (39-117); Bilirubin,Direct 0.4 mg/dL (<0.3); Bilirubin,Total 0.9 mg/dL (0.1-1.0); Blood Urea Nitrogen 35 mg/dL (8-23); Calcium 9.1 mg/dL (8.6-10.4); Carbon Dioxide 23 mmol/L (22-30); Chloride 100 mmol/L (96-108); Globulin 3.6 gm/dL (2.2-3.7); Glomerular Filtration Rate 41; Glucose 91 mg/dL (70-105); Lactate Dehydrogenase 185 U/L (135-225); Phosphorous 3.2 mg/dL (2.5-4.5); Triglycerides 64 mg/dL (<150); Uric Acid 5.4 mg/dL (2.5-8.0)
[2022-05-15] MEDS ORDERED: POTASSIUM CHLORIDE 20 MEQ in DEXTROSE 5% IN WATER 250 ML IV ONE (07:40)
--- NOTE | 2022-05-15 07:43 | Internal Med Progress Note ---
SUBJECTIVE Subjective Patient information: Note initiated : 05/15/22 at 7:35 am Service Date, if different from initiated Date: [] Patient: Brandy Swanson 86 y/o F admitted on 05/14/22 for weakness. Chief Complaint: [] Interval history: History of present illness: 86-year-old female who presented to the ED on the evening of the for weak ness and lethargy and decreased appetite and daughter was worried about the leg stating when it becomes edematous it starts weeping and appeared more red than usual. She had 1 episode of nausea vomiting after her daughter fed her. Patient has a history of dementia depression anxiety chronic anemia hypothyroidism chronic kidney disease. She was admitted in the hospital in mid April for a right lower extremity cellulitis along the andrews. On admission she was mildly tachycardic and tachypneic and there was concern for sepsis. She was also febrile at 101.3 when she came in. Lactate was 1.8. Possible sources considered in ED were the leg versus other. Further work-up revealed transaminitis and hyperbilirubinemia and a possible cholecystitis. There is also dilated intra hepatic and extrahepatic ducts. This was discussed with surgeon who recommended ERCP versus MRCP, transfer discussion was started but no beds available. Able to get an MRCP ordered for today. Patient denying abdominal pain at this time. Since her arrival to the ED she had been on IV fluids and antibiotics. Her bi lirubin has improved as well as her liver enzymes are improving although still elevated. Patient overall feels improved. Awaiting MRCP results for action of care. Case was also discussed with Dr. Hanna . 05/15 Patient did not sleep well overnight per the nursing staff. Patient has no new complaints. Awaiting cholecystectomy. Good urine output last night with Lasix yesterday. Was swelling in the legs significantly improved. Mild hypokalemia. Renal function improved from yesterday. Review of Systems: denies headache/fever/chills/nausea/vomiting/chest or abdominal pain/cough/dyspnea/diarrhea. Otherwise see above. Constitutional Vitals: Vital Signs Temp Pulse Resp BP Pulse Ox O2 Del Method 98.6 F 83 20 140/78 95 05/15/22 04:00 05/15/22 04:00 05/15/22 04:00 05/15/22 04:00 05/15/22 04:00 05/15/22 04:00 Period Temp Pulse Resp BP Sys/Lubin Pulse Ox O2 Del Method O2 Flow Rate Last 24 Hr 98.1 F-100.2 F 70-87 18-27 118-159/57-85 92-98 Room Air-Room Air Intake and Output 05/14/22 05/15/22 05/15/22 21:59 05:59 13:59 Intake Total 653 969 1218 Output Total 1850 3600 Balance -1650 -3050 1050 Weight 81.902 kg Intake & Output: Intake & Output 05/14/22 05/15/22 05/15/22 21:59 05:59 13:59 Intake Total 615 738 1975 Output Total 1850 3600 Balance -1650 -3050 1050 Weight 81.902 kg Intake: IV 578 628 7199 Sodium Chloride 0.9% 1,000 ml @ 1000 70 mls/hr IV .[id number] CATIA Rx#: [id number] Zosyn 2.25 gm In Dextrose 5% in 50 50 50 Water 50 ml @ 100 mls/hr IV Q6H CATIA Rx#:[id number] Vancomycin 500 mg In Sodium 100 Chloride 0.9% 100 ml @ 100 mls/ hr IV Q24H CATIA Rx#:[id number] Oral 450 Output: Urine Catheter Amount 1850 3600 Other: Urine Appearance Clear Clear Fem Cath Clear Uretheral (Pavon) Clear Urine Color Yellow Yellow Fem Cath Dark Yellow Uretheral (Pavon) Yellow Urine Odor Normal Normal Stool Size Small Stool Color Brown Stool Consistency Soft Exam: General: Alert, Awake, No acute Distress, obese Eyes/N/T: EOMI, Head/Neck: neck supple, CV: RRR, No murmurs, Pulm: Clear b/l, no wheezing/rhonchi/rales Abd: soft, nontender, +BS x4 Ext: no clubbing/cyanosis, b/l LE edema significantly improved, no cellulitis noted over right mid-andrews Neuro: Alert, no focal deficits, moves all extremities, Skin: warm/dry OBJ DATA Labs CBC & Chem 7: 05/15/22 05:53 05/15/22 05:53 Labs: Abnormal Lab Results 05/15/22 05/15/22 05/14/22 05:53 05:53 13:03 RBC 3.25 L 3.28 L Hgb 9.5 L 9.5 L Hct 30.0 L 29.5 L POC Hct RDW 16.9 H 17.1 H Neut % (Auto) 79.6 H Lymph % (Auto) 10.8 L 9.2 L Lymph # (Auto) 0.86 L 0.87 L Geary # (Auto) Absolute Neutrophils POC VBG pH POC VBG pCO2 at Temp POC VBG pO2 POC VBG HCO3 POC Venous O2 Sat POC VBG Base Excess Potassium 3.1 L Carbon Dioxide POC BUN BUN 35 H Creatinine 1.2 H POC Creatinine POC WB Ioniz Calcium Total Bilirubin Direct Bilirubin 0.4 H GGT 161 H AST 104 H ALT 192 H Alkaline Phosphatase 125 H NT-Pro-B Natriuret Pep Albumin 3.1 L Albumin/Globulin Ratio 0.9 L Urine Protein Urine Occult Blood Ur Leukocyte Esterase Urine RBC Urine WBC Urine Mucus 05/14/22 05/14/22 05/13/22 07:06 07:06 18:40 RBC Hgb Hct POC Hct RDW Neut % (Auto) Lymph % (Auto) Lymph # (Auto) Geary # (Auto) Absolute Neutrophils POC VBG pH POC VBG pCO2 at Temp POC VBG pO2 POC VBG HCO3 POC Venous O2 Sat POC VBG Base Excess Potassium Carbon Dioxide 20 L POC BUN BUN 44 H Creatinine 1.4 H POC Creatinine POC WB Ioniz Calcium Total Bilirubin 1.5 H Direct Bilirubin 0.5 H 1.1 H GGT 170 H AST 200 H 295 H ALT 278 H 348 H Alkaline Phosphatase 137 H 148 H NT-Pro-B Natriuret Pep 3232.0 H Albumin 3.0 L Albumin/Globulin Ratio 0.9 L Urine Protein Urine Occult Blood Ur Leukocyte Esterase Urine RBC Urine WBC Urine Mucus 05/13/22 05/12/22 05/12/22 14:35 20:33 18:38 RBC Hgb Hct POC Hct 27.0 L RDW Neut % (Auto) Lymph % (Auto) Lymph # (Auto) Geary # (Auto) Absolute Neutrophils POC VBG pH 7.49 H POC VBG pCO2 at Temp 37.2 L POC VBG pO2 POC VBG HCO3 28.1 H POC Venous O2 Sat POC VBG Base Excess 5.0 H* Potassium Carbon Dioxide POC BUN 49 H BUN Creatinine POC Creatinine 1.4 H POC WB Ioniz Calcium 1.12 L Total Bilirubin Direct Bilirubin GGT AST ALT Alkaline Phosphatase NT-Pro-B Natriuret Pep Albumin Albumin/Globulin Ratio Urine Protein 100 mg/dl A Urine Occult Blood Moderate A Ur Leukocyte Esterase Trace A Urine RBC 7 H Urine WBC 8 H Urine Mucus Few A 05/12/22 05/12/22 05/12/22 17:49 17:42 17:42 RBC Hgb 10.6 L Hct 33.0 L POC Hct RDW 16.1 H Neut % (Auto) 84.8 H Lymph % (Auto) 6.1 L Lymph # (Auto) 0.67 L Geary # (Auto) 0.93 H Absolute Neutrophils 9.29 H POC VBG pH POC VBG pCO2 at Temp POC VBG pO2 19 L POC VBG HCO3 POC Venous O2 Sat 30.0 L POC VBG Base Excess Potassium Carbon Dioxide POC BUN BUN Creatinine POC Creatinine POC WB Ioniz Calcium Total Bilirubin 1.8 H Direct Bilirubin 1.3 H GGT AST 475 H ALT 352 H Alkaline Phosphatase 175 H NT-Pro-B Natriuret Pep Albumin Albumin/Globulin Ratio Urine Protein Urine Occult Blood Ur Leukocyte Esterase Urine RBC Urine WBC Urine Mucus Meds: Medications Clonazepam (Clonazepam 0.5 Mg Tablet) 0.5 mg PO BIDP PRN PRN Reason: anxiety Divalproex Sodium (Divalproex 125 Mg Cap.Sprink) 125 mg PO BID [facility] Last Admin: 05/14/22 20:45 Dose: 125 mg Heparin Sodium (Porcine) (Heparin 5,000 Unit/Ml Vial) 5,000 unit SQ Q12 [facility]IA Last Admin: 05/14/22 20:45 Dose: 5,000 unit Vancomycin HCl 500 mg/ Sodium (Chloride) 100 mls @ 100 mls/hr IV Q24H [facility]; Protocol Last Infusion: 05/14/22 20:15 Dose: Infused Piperacillin Sod/Tazobactam (Sod 2.25 gm/ Dextrose) 50 mls @ 100 mls/hr IV Q6H [facility] Last Infusion: 05/15/22 06:11 Dose: Infused Lactobacillus Rhamnosus (Lactobacillus 1 Capsule) 1 cap PO DAILY [facility] Levothyroxine Sodium (Levothyroxine 50 Mcg Tablet) 50 mcg PO ACB [facility] Polyethylene Glycol (Polyethylene Glycol 3350 17 Gm Packet) 17 gm PO DAILYP PRN PRN Reason: Constipation Quetiapine Fumarate (Quetiapine 25 Mg Tablet) 25 mg PO BID [facility] Last Admin: 05/14/22 20:45 Dose: 25 mg Sodium Chloride (0.9 % Sodium Chloride 10 Ml Syringe) 10 ml IV Q8 [facility]IA Last Admin: 05/15/22 05:40 Dose: 10 ml Vancomycin HCl (Vancomycin Per Pharmacy) 1 order IV UD [facility]IA A/P Narrative A/P Narrative: A: *Sepsis: ddx biliary/GB vs less likely cellulitis -Tm 100.2 *initial concern for developing cholecystitis or early cholangitis; w/Transaminitis & Hyperbilirubinemia(Improving): -based on initial labs/imaging and now MRCP> suspect a passed stone *Bacteremia (GPC): likely Enterococcus as previous cx's have shown and if from biliary tract *resolved RLE cellulitis -was admitted for cellulitis mid April *CHRIS on CKD III: 2/2 above, improved *Volume Overload: improved *Hypokalemia: replete *Anemia, chronic: *Dementia/depression/anxiety: *Obesity: *Hypothyroidism: *h/o SIADH: P: -cont IV abx pending BC -monitor UOP -IV lasix prn -echo given gpc bacteremia -Dr. Ortiz for GB -cont home psych meds -ppx: heparin Time Spent With Patient Time: Total time spent is greater than 50% in coordination of care (as documented) at patient's floor/unit and/or counseling patient: Total time spent with greater than 50% in coordination of care (as documented) at patient's floor/unit and/or counseling patient:: 35 - 50 minutes QUALITY Stroke Symptom Onset Unknown: No VTE Deep Vein Thrombosis/Pulmonary Embolism Present on Admission: No
[2022-05-15] MEDS: LEVOTHYROXINE 50 MCG TABLET PO SCH (08:30)
[2022-05-15] MEDS: HEPARIN 5,000 UNIT/ML VIAL SQ SCH ×2 (08:35→21:01)
[2022-05-15] MEDS: LACTOBACILLUS 1 CAPSULE PO SCH (08:35)
[2022-05-15] MEDS: QUEtiapine 25 MG TABLET PO SCH ×2 (08:36→21:01)
[2022-05-15] MEDS: DIVALPROEX 125 MG CAP.SPRINK PO SCH ×2 (08:36→21:01)
[2022-05-15] MEDS: POTASSIUM CHLORIDE 40 MEQ in DEXTROSE 5% IN WATER 500 ML IV ONE ×2 (08:36→09:09)
[2022-05-15] MEDS ORDERED: POTASSIUM CHLORIDE 40 MEQ in DEXTROSE 5% IN WATER 500 ML IV ONE (11:00)
[2022-05-15] MEDS ORDERED: MAGNESIUM SULFATE 2 GM/50 ML BAG IV ONE (11:26)
[2022-05-15] MEDS ORDERED: PROPOFOL 200 MG/20 ML VIAL IV ONE (11:26)
[2022-05-15] MEDS ORDERED: ROCURONIUM 10 MG/ML ML IV ONE (11:26)
[2022-05-15] MEDS ORDERED: KETAMINE 50 MG/ML Syringe (ANEST) IV ONE (11:26)
[2022-05-15] MEDS ORDERED: ONDANSETRON 4 MG/2 ML VIAL ONE (11:26)
[2022-05-15] MEDS ORDERED: POTASSIUM CHLORIDE 40 MEQ/20 ML VIAL IV ONE (11:26)
[2022-05-15] MEDS ORDERED: DEXAMETHASONE 10 MG/ML VIAL ONE (11:26)
[2022-05-15] MEDS ORDERED: PHENYLephrine 1 MG/10 ML SYRINGE (ANEST) ONE (11:26)
[2022-05-15] MEDS ORDERED: LIDOCAINE HCL/PF 100 MG/5 ML SYRINGE IV ONE (11:26)
[2022-05-15] MEDS ORDERED: fentaNYL 100 MCG/2 ML VIAL IV ONE (11:26)
[2022-05-15] MEDS ORDERED: GLYCOPYRROLATE 0.2 MG/ML VIAL IV ONE (11:26)
[2022-05-15] MEDS ORDERED: SUGAMMADEX SODIUM 200 MG/2 ML VIAL IV ONE (11:26)
[2022-05-15] MEDS ORDERED: MEPERIDINE 25 MG/ML VIAL IV PRN (12:20)
[2022-05-15] MEDS ORDERED: ONDANSETRON 4 MG/2 ML VIAL IV PRN (12:20)
[2022-05-15] MEDS ORDERED: fentaNYL 100 MCG/2 ML VIAL IV PRN (12:20)
[2022-05-15] MEDS ORDERED: PROMETHAZINE 25 MG/ML VIAL IV PRN (12:20)
[2022-05-15] MEDS ORDERED: LACTATED RINGERS 250 ML IV PRN (12:20)
[2022-05-15] MEDS ORDERED: NALOXONE HCL 0.4 MG/ML VIAL IV PRN (12:20)
[2022-05-15] MEDS ORDERED: IPRATROPIUM/ALBUTEROL 3 ML AMPUL.NEB NEB PRN (12:20)
[2022-05-15] MEDS ORDERED: diphenhydrAMINE 50 MG/ML VIAL IV PRN (12:20)
[2022-05-15] MEDS ORDERED: LACTATED RINGERS 1,000 ML IV SCH (12:30)
--- NOTE | 2022-05-15 12:50 | Brief Operative Note ---
Brief Operative Note Date of procedure: 05/15/22 Pre-op diagnosis: acute cholecystitis with cholelithiasis Post-op diagnosis: other (acute cholecystitis with cholelithiasis) Procedure: laparoscopic cholecystectomy Grafts/Implants: No (marilu drain x1) Anesthesia: GETA Findings: acute severe inflammation of gallbladder with early cirrhosis Complications: none Surgeon: Carroll Ortiz Estimated blood loss (cc): 50 Specimens Removed/Pathology: other (gallbladder) Condition: stable Disposition: PACU
[2022-05-15] MEDS: VANCOMYCIN 500 MG in 0.9 % SODIUM CHLORIDE 100 ML IV SCH (14:28)
[2022-05-15] MEDS: HYDROmorphone 0.5 MG/0.5 ML SYRINGE IV PRN (17:16)
[2022-05-15] MEDS: MELATONIN 3 MG TABLET PO SCH (21:01)
[2022-05-15] MEDS: ARIPIPRAZOLE 5 MG TABLET PO SCH (21:01)
[2022-05-16] MEDS: PIPERACILLIN SODIUM/TAZOBACTAM 2.25 GM in DEXTROSE 5% IN WATER 50 ML IV SCH ×5 (00:37→23:29)
[2022-05-16] MEDS: HYDROmorphone 0.5 MG/0.5 ML SYRINGE IV PRN ×2 (00:42→14:41)
[2022-05-16] MEDS: 0.9 % SODIUM CHLORIDE 10 ML SYRINGE IV SCH ×3 (05:44→20:16)
[2022-05-16 06:49] LABS: Basophils # (Auto) 0.01 K/mcL (0.00-0.30); Basophils % (Auto) 0.1 % (0.0-2.0); Eosinophils # (Auto) 0 K/mcL (0.00-0.70); Eosinophils % (Auto) 0 % (0.0-7.0); Hematocrit 25.9 % (34.1-44.9); Hemoglobin 8.5 g/dL (11.2-15.7); Lymphocytes # (Auto) 0.71 K/mcL (1.50-4.80); Lymphocytes % (Auto) 5.8 % (15.5-49.0); Mean Corpuscular HGB Conc 32.8 g/dL (31.0-36.0); Mean Platelet Volume 10.2 fL (7.4-10.4); Monocytes % (Auto) 9.1 % (1.0-12.0); Neutrophils % (Auto) 84.3 % (38.0-78.0); Platelet Count 167 K/mcL (140-440); RBC 2.91 M/mcL (3.59-5.38); Red Cell Distribution Width 16.3 % (11.5-14.5); WBC 12.1 K/mcL (4.5-11.0)
[2022-05-16 07:27] LABS: ALT/SGPT 134 U/L (<40); AST/SGOT 61 U/L (<32); Albumin/Globulin Ratio 0.9 (1.0-2.3); Alkaline Phosphatase 101 U/L (39-117); Bilirubin,Direct 0.3 mg/dL (<0.3); Bilirubin,Total 0.8 mg/dL (0.1-1.0); Blood Urea Nitrogen 34 mg/dL (8-23); Calcium 8.8 mg/dL (8.6-10.4); Carbon Dioxide 24 mmol/L (22-30); Chloride 103 mmol/L (96-108); Globulin 3.4 gm/dL (2.2-3.7); Glomerular Filtration Rate 41; Glucose 150 mg/dL (70-105); Lactate Dehydrogenase 171 U/L (135-225); Phosphorous 3.5 mg/dL (2.5-4.5); Triglycerides 36 mg/dL (<150); Uric Acid 5.3 mg/dL (2.5-8.0)
--- NOTE | 2022-05-16 07:41 | Internal Med Progress Note ---
SUBJECTIVE Subjective Patient information: Note initiated : 05/16/22 at 7:35 am Service Date, if different from initiated Date: [] Patient: Brandy Swanson 86 y/o F admitted on 05/14/22 for weakness. Chief Complaint: [] Interval history: History of present illness: 86-year-old female who presented to the ED on the evening of the for weak ness and lethargy and decreased appetite and daughter was worried about the leg stating when it becomes edematous it starts weeping and appeared more red than usual. She had 1 episode of nausea vomiting after her daughter fed her. Patient has a history of dementia depression anxiety chronic anemia hypothyroidism chronic kidney disease. She was admitted in the hospital in mid April for a right lower extremity cellulitis along the andrews. On admission she was mildly tachycardic and tachypneic and there was concern for sepsis. She was also febrile at 101.3 when she came in. Lactate was 1.8. Possible sources considered in ED were the leg versus other. Further work-up revealed transaminitis and hyperbilirubinemia and a possible cholecystitis. There is also dilated intra hepatic and extrahepatic ducts. This was discussed with surgeon who recommended ERCP versus MRCP, transfer discussion was started but no beds available. Able to get an MRCP ordered for today. Patient denying abdominal pain at this time. Since her arrival to the ED she had been on IV fluids and antibiotics. Her bi lirubin has improved as well as her liver enzymes are improving although still elevated. Patient overall feels improved. Awaiting MRCP results for action of care. Case was also discussed with Dr. Hanna . 05/15 Patient did not sleep well overnight per the nursing staff. Patient has no new complaints. Awaiting cholecystectomy. Good urine output last night with Lasix yesterday. Was swelling in the legs significantly improved. Mild hypokalemia. Renal function improved from yesterday. 05/16 Patient had lap gricelda yesterday. Pulmonary edema on chest x-ray still present but improving. Patient on oxygen. No new complaints or overnight events other than that was reported fever of one 1.1 in the middle the night. Renal function the same as yesterday. Review of Systems: denies headache/fever/chills/nausea/vomiting/chest or abdominal pain/cough/dyspnea/diarrhea. Otherwise see above. Constitutional Vitals: Vital Signs Temp Pulse Resp BP Pulse Ox O2 Del Method O2 Flow Rate 98.3 F 77 18 104/58 94 3 05/16/22 04:00 05/16/22 04:00 05/16/22 04:00 05/16/22 04:00 05/16/22 04:00 05/16/22 04:00 05/16/22 04:00 Period Temp Pulse Resp BP Sys/Lubin Pulse Ox O2 Del Method O2 Flow Rate Last 24 Hr 98.2 F-101.1 F 73-88 16-28 104-148/53-79 91-100 Nasal Cannula- Room Air 1-6 Intake and Output 05/15/22 05/16/22 05/16/22 21:59 05:59 13:59 Intake Total 1070 150 50 Output Total 400 425 Balance 670 -275 50 Weight 81.902 kg Intake & Output: Intake & Output 05/15/22 05/16/22 05/16/22 21:59 05:59 13:59 Intake Total 1070 150 50 Output Total 400 425 Balance 670 -275 50 Weight 81.902 kg Intake: IV 830 50 50 Sodium Chloride 0.9% 1,000 ml @ 680 150 mls/hr IV .Q6H40M [facility] Rx#: [id number] Zosyn 2.25 gm In Dextrose 5% in 50 50 50 Water 50 ml @ 100 mls/hr IV Q6H [facility] Rx#:[id number] Vancomycin 500 mg In Sodium 100 Chloride 0.9% 100 ml @ 100 mls/ hr IV Q24H [facility] Rx#:[id number] Oral 240 100 Output: Drainage 25 Right Lateral Abdomen 25 Drainage 175 75 Abdomen 175 Right Lateral Abdomen 75 Urine Catheter Amount 200 350 Other: Meal Dinner Percent of Meal Consumed 50% Feeding Ability Total Assistance Urine Appearance Clear Clear Uretheral (Pavon) Clear Urine Color Dark Yellow Yellow Uretheral (Pavon) Yellow Pale Urine Odor Normal Exam: General: Alert, Awake, No acute Distress, obese Eyes/N/T: EOMI, Head/Neck: neck supple, CV: RRR, No murmurs, Pulm: mildly diminished, no wheezing Abd: soft, nontender, decresed BS x4 Ext: no clubbing/cyanosis, b/l LE edema significantly improved, no cellulitis noted over right mid-andrews Neuro: Alert, no focal deficits, moves all extremities, Skin: warm/dry OBJ DATA Labs CBC & Chem 7: 05/16/22 05:44 05/16/22 05:44 Labs: Abnormal Lab Results 05/16/22 05/16/22 05/15/22 05:44 05:44 09:24 WBC 12.1 H RBC 2.91 L Hgb 8.5 L Hct 25.9 L POC Hct RDW 16.3 H Immature Gran % (Auto) 0.7 H Neut % (Auto) 84.3 H Lymph % (Auto) 5.8 L Lymph # (Auto) 0.71 L Reynolds # (Auto) 1.10 H Immature Gran # 0.08 H Absolute Neutrophils 10.24 H Potassium Carbon Dioxide POC BUN BUN 34 H Creatinine 1.2 H POC Creatinine Glucose 150 H POC WB Ioniz Calcium Magnesium 2.7 H Total Bilirubin Direct Bilirubin 0.3 H GGT 136 H AST 61 H ALT 134 H Alkaline Phosphatase NT-Pro-B Natriuret Pep 3623.0 H Albumin 3.0 L Albumin/Globulin Ratio 0.9 L 05/15/22 05/15/22 05/14/22 05:53 05:53 13:03 WBC RBC 3.25 L 3.28 L Hgb 9.5 L 9.5 L Hct 30.0 L 29.5 L POC Hct RDW 16.9 H 17.1 H Immature Gran % (Auto) Neut % (Auto) 79.6 H Lymph % (Auto) 10.8 L 9.2 L Lymph # (Auto) 0.86 L 0.87 L Reynolds # (Auto) Immature Gran # Absolute Neutrophils Potassium 3.1 L Carbon Dioxide POC BUN BUN 35 H Creatinine 1.2 H POC Creatinine Glucose POC WB Ioniz Calcium Magnesium Total Bilirubin Direct Bilirubin 0.4 H GGT 161 H AST 104 H ALT 192 H Alkaline Phosphatase 125 H NT-Pro-B Natriuret Pep Albumin 3.1 L Albumin/Globulin Ratio 0.9 L 05/14/22 05/14/22 05/13/22 07:06 07:06 18:40 WBC RBC Hgb Hct POC Hct RDW Immature Gran % (Auto) Neut % (Auto) Lymph % (Auto) Lymph # (Auto) Reynolds # (Auto) Immature Gran # Absolute Neutrophils Potassium Carbon Dioxide 20 L POC BUN BUN 44 H Creatinine 1.4 H POC Creatinine Glucose POC WB Ioniz Calcium Magnesium Total Bilirubin 1.5 H Direct Bilirubin 0.5 H 1.1 H GGT 170 H AST 200 H 295 H ALT 278 H 348 H Alkaline Phosphatase 137 H 148 H NT-Pro-B Natriuret Pep 3232.0 H Albumin 3.0 L Albumin/Globulin Ratio 0.9 L 05/13/22 14:35 WBC RBC Hgb Hct POC Hct 27.0 L RDW Immature Gran % (Auto) Neut % (Auto) Lymph % (Auto) Lymph # (Auto) Reynolds # (Auto) Immature Gran # Absolute Neutrophils Potassium Carbon Dioxide POC BUN 49 H BUN Creatinine POC Creatinine 1.4 H Glucose POC WB Ioniz Calcium 1.12 L Magnesium Total Bilirubin Direct Bilirubin GGT AST ALT Alkaline Phosphatase NT-Pro-B Natriuret Pep Albumin Albumin/Globulin Ratio Meds: Medications Clonazepam (Clonazepam 0.5 Mg Tablet) 0.5 mg PO BIDP PRN PRN Reason: anxiety Divalproex Sodium (Divalproex 125 Mg Cap.Sprink) 125 mg PO BID [facility] Last Admin: 05/15/22 21:01 Dose: 125 mg Heparin Sodium (Porcine) (Heparin 5,000 Unit/Ml Vial) 5,000 unit SQ Q12 [facility] Last Admin: 05/15/22 21:01 Dose: 5,000 unit Hydromorphone HCl (Hydromorphone 0.5 Mg/0.5 Ml Syringe) 0.5 mg IV Q2HP PRN; Protocol PRN Reason: Per Pain Protocol Last Admin: 05/16/22 00:42 Dose: 0.5 mg Piperacillin Sod/Tazobactam (Sod 2.25 gm/ Dextrose) 50 mls @ 100 mls/hr IV Q6H [facility] Last Infusion: 05/16/22 06:35 Dose: Infused Lactobacillus Rhamnosus (Lactobacillus 1 Capsule) 1 cap PO DAILY [facility] Last Admin: 05/15/22 08:35 Dose: Not Given Levothyroxine Sodium (Levothyroxine 50 Mcg Tablet) 50 mcg PO ACB [facility] Last Admin: 05/15/22 08:30 Dose: Not Given Melatonin (Melatonin 3 Mg Tablet) 3 mg PO QHS [facility] Last Admin: 05/15/22 21:01 Dose: Not Given Polyethylene Glycol (Polyethylene Glycol 3350 17 Gm Packet) 17 gm PO DAILYP PRN PRN Reason: Constipation Quetiapine Fumarate (Quetiapine 25 Mg Tablet) 25 mg PO BID [facility] Last Admin: 05/15/22 21:01 Dose: 25 mg Sodium Chloride (0.9 % Sodium Chloride 10 Ml Syringe) 10 ml IV Q8 [facility] Last Admin: 05/16/22 05:44 Dose: 10 ml A/P Narrative A/P Narrative: A: *Sepsis: ddx biliary/GB vs less likely cellulitis -Tm 101 *acute cholecystitis; w/Transaminitis & Hyperbilirubinemia(Improving): s/p lap gricelda (05/15) -based on initial labs/imaging and now MRCP> suspect a passed stone *Bacteremia (Enerococcus faecium): 2/2 above -echo no vegetations *resolved RLE cellulitis -was admitted for cellulitis mid April *CHRIS on CKD III: 2/2 above, improved, stable *Volume Overload: improving -echo with good EF, does have Diastolic dysfunction *Hypokalemia: replete, improved *Anemia, chronic: *Dementia/depression/anxiety: *Obesity: *Hypothyroidism: *h/o SIADH: P: -IV abx pending BC -IV lasix prn(today), i/o's -Dr. Ortiz for GB -cont home psych meds -ppx: heparin Time Spent With Patient Time: Total time spent is greater than 50% in coordination of care (as documented) at patient's floor/unit and/or counseling patient: Total time spent with greater than 50% in coordination of care (as documented) at patient's floor/unit and/or counseling patient:: 25 - 35 minutes QUALITY Stroke Symptom Onset Unknown: No VTE Deep Vein Thrombosis/Pulmonary Embolism Present on Admission: No
[2022-05-16] MEDS: LEVOTHYROXINE 50 MCG TABLET PO SCH (08:30)
[2022-05-16] MEDS: HEPARIN 5,000 UNIT/ML VIAL SQ SCH (08:30)
[2022-05-16] MEDS: QUEtiapine 25 MG TABLET PO SCH ×2 (08:30→20:15)
[2022-05-16] MEDS: LACTOBACILLUS 1 CAPSULE PO SCH (08:30)
[2022-05-16] MEDS: DIVALPROEX 125 MG CAP.SPRINK PO SCH ×2 (08:30→20:15)
[2022-05-16] MEDS ORDERED: ALBUMIN HUMAN 12.5 GM/50 ML BAG IV ONE (09:07)
[2022-05-16] MEDS ORDERED: FUROSEMIDE 40 MG/4 ML VIAL IV ONE (09:07)
--- NOTE | 2022-05-16 09:31 | XRay Report ---
INDICATION: f/u pulm edema TECHNIQUE: AP portable semiupright chest x-ray COMPARISON: None FINDINGS: There is persisting cardiomegaly. Bilateral infiltrates consistent with interstitial edema and congestive heart failure. There is mild interval improvement. Clinical correlation and continued radiographic follow-up recommended. No focal pulmonary parenchymal consolidation IMPRESSION: 1. Findings remain consistent with cardiomegaly and congestive heart failure 2. Mild interval improvement Interpreted and Authenticated by: James Perez 05/16/22
[2022-05-16] MEDS ORDERED: ONDANSETRON 4 MG/2 ML VIAL IV PRN (14:53)
[2022-05-16] MEDS: MELATONIN 3 MG TABLET PO SCH (20:15)
[2022-05-16] MEDS: ARIPIPRAZOLE 5 MG TABLET PO SCH (20:15)
[2022-05-17] MEDS: PIPERACILLIN SODIUM/TAZOBACTAM 2.25 GM in DEXTROSE 5% IN WATER 50 ML IV SCH ×3 (05:20→17:41)
[2022-05-17] MEDS: 0.9 % SODIUM CHLORIDE 10 ML SYRINGE IV SCH ×3 (05:42→20:16)
--- NOTE | 2022-05-17 07:34 | Internal Med Progress Note ---
SUBJECTIVE Subjective Patient information: Note initiated : 05/17/22 at 7:30 am Service Date, if different from initiated Date: [] Patient: Brandy Swanson 86 y/o F admitted on 05/14/22 for weakness. Chief Complaint: [] Interval history: History of present illness: 86-year-old female who presented to the ED on the evening of the for weak ness and lethargy and decreased appetite and daughter was worried about the leg stating when it becomes edematous it starts weeping and appeared more red than usual. She had 1 episode of nausea vomiting after her daughter fed her. Patient has a history of dementia depression anxiety chronic anemia hypothyroidism chronic kidney disease. She was admitted in the hospital in mid April for a right lower extremity cellulitis along the andrews. On admission she was mildly tachycardic and tachypneic and there was concern for sepsis. She was also febrile at 101.3 when she came in. Lactate was 1.8. Possible sources considered in ED were the leg versus other. Further work-up revealed transaminitis and hyperbilirubinemia and a possible cholecystitis. There is also dilated intra hepatic and extrahepatic ducts. This was discussed with surgeon who recommended ERCP versus MRCP, transfer discussion was started but no beds available. Able to get an MRCP ordered for today. Patient denying abdominal pain at this time. Since her arrival to the ED she had been on IV fluids and antibiotics. Her bi lirubin has improved as well as her liver enzymes are improving although still elevated. Patient overall feels improved. Awaiting MRCP results for action of care. Case was also discussed with Dr. Hanna . 05/15 Patient did not sleep well overnight per the nursing staff. Patient has no new complaints. Awaiting cholecystectomy. Good urine output last night with Lasix yesterday. Was swelling in the legs significantly improved. Mild hypokalemia. Renal function improved from yesterday. 05/16 Patient had lap gricelda yesterday. Pulmonary edema on chest x-ray still present but improving. Patient on oxygen. No new complaints or overnight events other than that was reported fever of one 1.1 in the middle the night. Renal function the same as yesterday. 05/17 No new complaints. Give Lasix yesterday with good output. Awaiting labs. Leg edema much improved still has pedal edema. Review of Systems: denies headache/fever/chills/nausea/vomiting/chest or abdominal pain/cough/dyspnea/diarrhea. Otherwise see above. Constitutional Vitals: Vital Signs Temp Pulse Resp BP Pulse Ox O2 Del Method O2 Flow Rate 98.1 F 70 16 126/70 94 3 05/17/22 04:00 05/17/22 04:00 05/17/22 04:00 05/17/22 04:00 05/17/22 04:00 05/17/22 04:00 05/16/22 10:09 Period Temp Pulse Resp BP Sys/Lubin Pulse Ox O2 Del Method O2 Flow Rate Last 24 Hr 97.7 F-99 F 63-88 96-126/55-70 90-94 Nasal Cannula-Room Air 3-3.5 Intake and Output 05/16/22 05/17/22 05/17/22 21:59 05:59 13:59 Intake Total 50 250 50 Output Total 750 330 Balance -700 -80 50 Weight 83.325 kg Intake & Output: Intake & Output 05/16/22 05/17/22 05/17/22 21:59 05:59 13:59 Intake Total 50 250 50 Output Total 750 330 Balance -700 -80 50 Weight 83.325 kg Intake: IV 50 50 50 Zosyn 2.25 gm In Dextrose 5% in 50 50 50 Water 50 ml @ 100 mls/hr IV Q6H [facility] Rx#:[id number] Oral 200 Output: Drainage 80 Right Lateral Abdomen 80 Urine Catheter Amount 250 Void Amount 750 Other: Meal Dinner Percent of Meal Consumed 100% Feeding Ability Total Assistance Urine Appearance Clear Urine Color Light Goldie Urine Odor Strong Exam: General: Alert, Awake, No acute Distress, obese Eyes/N/T: EOMI, Head/Neck: neck supple, CV: RRR, No murmurs, Pulm: mildly diminished, no wheezing Abd: soft, nontender, decresed BS x4 Ext: no clubbing/cyanosis, b/l LE edema significantly improved but still with pedal edema Neuro: Alert, no focal deficits, moves all extremities, Skin: warm/dry OBJ DATA Labs CBC & Chem 7: 05/16/22 05:44 05/16/22 05:44 Labs: Abnormal Lab Results 05/16/22 05/16/22 05/15/22 05:44 05:44 09:24 WBC 12.1 H RBC 2.91 L Hgb 8.5 L Hct 25.9 L RDW 16.3 H Immature Gran % (Auto) 0.7 H Neut % (Auto) 84.3 H Lymph % (Auto) 5.8 L Lymph # (Auto) 0.71 L Gosper # (Auto) 1.10 H Immature Gran # 0.08 H Absolute Neutrophils 10.24 H Potassium Carbon Dioxide BUN 34 H Creatinine 1.2 H Glucose 150 H Magnesium 2.7 H Direct Bilirubin 0.3 H GGT 136 H AST 61 H ALT 134 H Alkaline Phosphatase NT-Pro-B Natriuret Pep 3623.0 H Albumin 3.0 L Albumin/Globulin Ratio 0.9 L 05/15/22 05/15/22 05/14/22 05:53 05:53 13:03 WBC RBC 3.25 L 3.28 L Hgb 9.5 L 9.5 L Hct 30.0 L 29.5 L RDW 16.9 H 17.1 H Immature Gran % (Auto) Neut % (Auto) 79.6 H Lymph % (Auto) 10.8 L 9.2 L Lymph # (Auto) 0.86 L 0.87 L Gosper # (Auto) Immature Gran # Absolute Neutrophils Potassium 3.1 L Carbon Dioxide BUN 35 H Creatinine 1.2 H Glucose Magnesium Direct Bilirubin 0.4 H GGT 161 H AST 104 H ALT 192 H Alkaline Phosphatase 125 H NT-Pro-B Natriuret Pep Albumin 3.1 L Albumin/Globulin Ratio 0.9 L 05/14/22 05/14/22 07:06 07:06 WBC RBC Hgb Hct RDW Immature Gran % (Auto) Neut % (Auto) Lymph % (Auto) Lymph # (Auto) Gosper # (Auto) Immature Gran # Absolute Neutrophils Potassium Carbon Dioxide 20 L BUN 44 H Creatinine 1.4 H Glucose Magnesium Direct Bilirubin 0.5 H GGT 170 H AST 200 H ALT 278 H Alkaline Phosphatase 137 H NT-Pro-B Natriuret Pep 3232.0 H Albumin 3.0 L Albumin/Globulin Ratio 0.9 L Meds: Medications Clonazepam (Clonazepam 0.5 Mg Tablet) 0.5 mg PO BIDP PRN PRN Reason: anxiety Divalproex Sodium (Divalproex 125 Mg Cap.Sprink) 125 mg PO BID [facility] Last Admin: 08/13/22 20:15 Dose: 125 mg Hydromorphone HCl (Hydromorphone 0.5 Mg/0.5 Ml Syringe) 0.5 mg IV Q2HP PRN; Protocol PRN Reason: Per Pain Protocol Last Admin: 05/16/22 14:41 Dose: 0.5 mg Piperacillin Sod/Tazobactam (Sod 2.25 gm/ Dextrose) 50 mls @ 100 mls/hr IV Q6H [facility] Last Infusion: 05/17/22 06:06 Dose: Infused Lactobacillus Rhamnosus (Lactobacillus 1 Capsule) 1 cap PO DAILY [facility] Last Admin: 05/16/22 08:30 Dose: 1 cap Levothyroxine Sodium (Levothyroxine 50 Mcg Tablet) 50 mcg PO ACB [facility] Last Admin: 05/16/22 08:30 Dose: 50 mcg Melatonin (Melatonin 3 Mg Tablet) 3 mg PO QHS [facility] Last Admin: 05/16/22 20:15 Dose: 3 mg Ondansetron HCl (Ondansetron 4 Mg/2 Ml Vial) 4 mg IV Q4HP PRN; Protocol PRN Reason: Nausea/Vomiting Polyethylene Glycol (Polyethylene Glycol 3350 17 Gm Packet) 17 gm PO DAILYP PRN PRN Reason: Constipation Quetiapine Fumarate (Quetiapine 25 Mg Tablet) 25 mg PO BID [facility] Last Admin: 05/16/22 20:15 Dose: 25 mg Sodium Chloride (0.9 % Sodium Chloride 10 Ml Syringe) 10 ml IV Q8 [facility] Last Admin: 05/17/22 05:42 Dose: 10 ml A/P Narrative A/P Narrative: A: *Sepsis: ddx biliary/GB vs less likely cellulitis -afebrile o/n *acute cholecystitis; w/Transaminitis & Hyperbilirubinemia(Improving): s/p lap gricelda (05/15) -based on initial labs/imaging and now MRCP> suspect a passed stone *Bacteremia (Enterococcus faecium): 2/2 above -echo no vegetations *resolved RLE cellulitis -was admitted for cellulitis mid April *CHRIS on CKD III: 2/2 above, improved, stable *Volume Overload: improving -echo with good EF, does have Diastolic dysfunction *Hypokalemia: replete, improved *Anemia, chronic: *Dementia/depression/anxiety: *Obesity: *Hypothyroidism: *h/o SIADH: P: -f/u labs -abx -IV lasix prn, i/o's -Dr. Ortiz for post-op care -cont home psych meds -ppx: heparin held d/t bleeding (SCD) Time Spent With Patient Time: Total time spent is greater than 50% in coordination of care (as documented) at patient's floor/unit and/or counseling patient: Total time spent with greater than 50% in coordination of care (as documented) at patient's floor/unit and/or counseling patient:: 25 - 35 minutes QUALITY Stroke Symptom Onset Unknown: No VTE Deep Vein Thrombosis/Pulmonary Embolism Present on Admission: No
[2022-05-17] MEDS: LEVOTHYROXINE 50 MCG TABLET PO SCH (08:37)
[2022-05-17] MEDS: DIVALPROEX 125 MG CAP.SPRINK PO SCH ×2 (08:37→20:16)
[2022-05-17] MEDS: QUEtiapine 25 MG TABLET PO SCH ×2 (08:37→20:16)
[2022-05-17] MEDS: LACTOBACILLUS 1 CAPSULE PO SCH (08:37)
[2022-05-17 10:01] LABS: Hematocrit 25.8 % (34.1-44.9); Hemoglobin 8.3 g/dL (11.2-15.7); Mean Cell Volume 90.5 fL (80.0-100.0); Mean Corpuscular HGB Conc 32.2 g/dL (31.0-36.0); Mean Platelet Volume 10.6 fL (7.4-10.4); Platelet Count 190 K/mcL (140-440); RBC 2.85 M/mcL (3.59-5.38); WBC 8.2 K/mcL (4.5-11.0)
[2022-05-17 10:16] LABS: ALT/SGPT 94 U/L (<40); AST/SGOT 32 U/L (<32); Albumin 3.2 gm/dL (3.2-5.2); Albumin/Globulin Ratio 0.9 (1.0-2.3); Alkaline Phosphatase 82 U/L (39-117); Bilirubin,Direct 0.2 mg/dL (<0.3); Bilirubin,Total 0.6 mg/dL (0.1-1.0); Blood Urea Nitrogen 47 mg/dL (8-23); Calcium 8.7 mg/dL (8.6-10.4); Carbon Dioxide 26 mmol/L (22-30); Chloride 99 mmol/L (96-108); Globulin 3.5 gm/dL (2.2-3.7); Glomerular Filtration Rate 29; Glucose 91 mg/dL (70-105); Lactate Dehydrogenase 181 U/L (135-225); Phosphorous 3.4 mg/dL (2.5-4.5); Triglycerides 42 mg/dL (<150); Uric Acid 5.8 mg/dL (2.5-8.0)
[2022-05-17 12:17] LABS: Anisocytosis OCC (None Seen); Band Neutrophils % 3 % (0-10); Eosinophils % (Manual) 4 % (0-7); Hypochromasia OCC (None Seen); Lymphocytes % 20 % (15-49); Monocytes % (Manual) 7 % (1-12); Platelet Estimate NORMAL (Normal); RBC Fragments RARE (None Seen); RBC Morphology ABNORMAL (Normal); Reactive Lymphocytes 3 % (0-2); Segmented Neutrophils % 63 % (38-78)
[2022-05-17] MEDS: POLYETHYLENE GLYCOL 3350 17 GM PACKET PO PRN (13:48)
--- NOTE | 2022-05-17 14:38 | General Surgery Progress Note ---
SUBJECTIVE Subjective Patient information: Note initiated : 05/17/22 at 2:34 pm Service Date, if different from initiated Date: [] Patient: Brandy Swanson 86 y/o F admitted on 05/14/22 for weakness. Chief Complaint: [] Interval history: Patient is alert but there is a communication gap. Her daughter is with her at this time. White blood count is 8.2, hemoglobin 8.3, hematocrit 25.8, potassium 4.2, BUN 47, creatinine 1.6, BNP 2486. Patient denies any respiratory difficulty. She does not have any cough or congestion. Drainage from her CASANDRA is serous. She is tolerating soft diet without difficulty. Constitutional Vitals: Vital Signs Temp Pulse Resp BP Pulse Ox O2 Del Method O2 Flow Rate 98.5 F 72 18 121/65 96 3 05/17/22 12:12 05/17/22 12:12 05/17/22 12:12 05/17/22 12:12 05/17/22 12:12 05/17/22 12:12 05/16/22 10:09 Period Temp Pulse Resp BP Sys/Lubin Pulse Ox O2 Del Method O2 Flow Rate Last 24 Hr 97.7 F-99 F 63-82 14-20 96-133/55-70 90-96 Room Air-Room Air Intake and Output 05/17/22 05/17/22 05/17/22 05:59 13:59 21:59 Intake Total 250 50 Output Total 330 Balance -80 50 Intake & Output: Intake & Output 05/17/22 05/17/22 05/17/22 05:59 13:59 21:59 Intake Total 250 50 Output Total 330 Balance -80 50 Intake: IV 50 50 Zosyn 2.25 gm In Dextrose 5% in 50 50 Water 50 ml @ 100 mls/hr IV Q6H [facility] Rx#:[id number] Oral 200 Output: Drainage 80 Right Lateral Abdomen 80 Urine Catheter Amount 250 ENT ENT exam: Present mucous membranes moist, normal exam and normal external ear exam Neck Neck exam: Present full ROM and normal inspection Respiratory Respiratory exam: Present normal respiratory exam and CTAB Additional comments: Few scattered rhonchi without wheezes bilaterally Cardiovascular Cardiovascular exam: Present normal rate and rhythm, RRR, +S1 and +S2; Absent JVD GI/Abdominal GI/Abdominal exam: Present normal bowel sounds, soft and distended; Absent tenderness Extremities Exam Extremities exam: Present normal inspection, pedal edema (Mild pedal edema but improved from yesterday) and neurovascular intact Neurological Exam Neurological exam: Present abnormal gait and oriented X3; Absent motor sensory deficit Psychiatric Psychiatric exam: Present anxious, normal affect and normal mood A/P Assessment and plan (1) Cholelithiasis and cholecystitis without obstruction: Status: Acute (2) Primary degenerative dementia: Status: Acute (3) Acute dehydration: Status: Acute (4) Anxiety: Status: Chronic (5) Depression: Status: Chronic Comment: PHQ 9 is 5, cut back dose of citalopram to 10mg qd. Plan Pavon catheter is discontinued Will discontinue CASANDRA drain tomorrow Patient is ready for transfer to residential facility tomorrow if bed is available Time Spent With Patient Time: Total time spent is greater than 50% in coordination of care (as documented) at patient's floor/unit and/or counseling patient:
[2022-05-17] MEDS: MELATONIN 3 MG TABLET PO SCH (20:16)
[2022-05-17] MEDS: ARIPIPRAZOLE 5 MG TABLET PO SCH (20:16)
[2022-05-18] MEDS: PIPERACILLIN SODIUM/TAZOBACTAM 2.25 GM in DEXTROSE 5% IN WATER 50 ML IV SCH ×4 (00:31→17:51)
[2022-05-18] MEDS: 0.9 % SODIUM CHLORIDE 10 ML SYRINGE IV SCH ×3 (06:26→21:56)
[2022-05-18] MEDS: LEVOTHYROXINE 50 MCG TABLET PO SCH (08:35)
[2022-05-18] MEDS: LACTOBACILLUS 1 CAPSULE PO SCH (09:43)
[2022-05-18] MEDS: QUEtiapine 25 MG TABLET PO SCH ×2 (09:43→21:54)
[2022-05-18] MEDS: DIVALPROEX 125 MG CAP.SPRINK PO SCH ×2 (09:44→21:53)
[2022-05-18] MEDS: POLYETHYLENE GLYCOL 3350 17 GM PACKET PO PRN (09:45)
--- NOTE | 2022-05-18 10:38 | Internal Med Progress Note ---
SUBJECTIVE Subjective Patient information: Note initiated : 05/18/22 at 10:36 am Service Date, if different from initiated Date: [] Patient: Brandy Swanson 86 y/o F admitted on 05/14/22 for weakness. Chief Complaint: [] Principal diagnosis: The patient has a history of dementia and is not able to carry a conversati Constitutional Vitals: Vital Signs Temp Pulse Resp BP Pulse Ox O2 Del Method O2 Flow Rate 98.2 F 73 22 142/74 97 3 05/18/22 07:33 05/18/22 07:33 05/18/22 07:33 05/18/22 07:33 05/18/22 07:33 05/18/22 07:33 05/16/22 10:09 Period Temp Pulse Resp BP Sys/Lubin Pulse Ox O2 Del Method O2 Flow Rate Last 24 Hr 97.6 F-99.6 F 71-84 -22 103-146/51-79 92-97 Room Air-Room Air Intake and Output 05/17/22 05/18/22 05/18/22 21:59 05:59 13:59 Intake Total 50 530 50 Output Total 150 850 Balance 50 380 -800 Weight 83.506 kg Intake & Output: Intake & Output 05/17/22 05/18/22 05/18/22 21:59 05:59 13:59 Intake Total 50 530 50 Output Total 150 850 Balance 50 380 -800 Weight 83.506 kg Intake: IV 50 50 50 Zosyn 2.25 gm In Dextrose 5% in 50 50 50 Water 50 ml @ 100 mls/hr IV Q6H [facility] Rx#:[id number] Oral 480 Output: Drainage 100 Right Lateral Abdomen 100 Urine Catheter Amount 850 Void Amount 50 Other: Urine Odor Strong Head Head exam: Present atraumatic and normal inspection Eye Eye exam: Present normal appearance ENT ENT exam: Present mucous membranes moist, normal exam and normal external ear exam Neck Neck exam: Present normal inspection Respiratory Respiratory exam: Present normal respiratory exam Cardiovascular Cardiovascular exam: Present normal rate and rhythm GI/Abdominal GI/Abdominal exam: Present normal bowel sounds Back Exam Back exam: Present normal inspection Neurological Exam Neurological exam: Present alert Skin Skin exam: Present intact and warm OBJ DATA Labs CBC & Chem 7: 05/17/22 09:11 05/17/22 09:11 Labs: Abnormal Lab Results 05/17/22 05/17/2205/17/22 09:11 09:11 09:11 WBC RBC 2.85 L Hgb 8.3 L Hct 25.8 L RDW 17.0 H MPV 10.6 H Immature Gran % (Auto) Neut % (Auto) Lymph % (Auto) Lymph # (Auto) [place] # (Auto) Immature Gran # Absolute Neutrophils Reactive Lymphocytes 3 H RBC Morphology Abnormal A Hypochromasia Occ A Anisocytosis Occ A RBC Fragments Rare A BUN 47 H Creatinine 1.6 H Glucose Magnesium 2.7 H Direct Bilirubin GGT 118 H AST 32 H ALT 94 H NT-Pro-B Natriuret Pep 2486.0 H Albumin Albumin/Globulin Ratio 0.9 L 05/16/22 05/16/22 05/15/22 05:44 05:44 09:24 WBC 12.1 H RBC 2.91 L Hgb 8.5 L Hct 25.9 L RDW 16.3 H MPV Immature Gran % (Auto) 0.7 H Neut % (Auto) 84.3 H Lymph % (Auto) 5.8 L Lymph # (Auto) 0.71 L [place] # (Auto) 1.10 H Immature Gran # 0.08 H Absolute Neutrophils 10.24 H Reactive Lymphocytes RBC Morphology Hypochromasia Anisocytosis RBC Fragments BUN 34 H Creatinine 1.2 H Glucose 150 H Magnesium 2.7 H Direct Bilirubin 0.3 H GGT 136 H AST 61 H ALT 134 H NT-Pro-B Natriuret Pep 3623.0 H Albumin 3.0 L Albumin/Globulin Ratio 0.9 L Meds: Medications Clonazepam (Clonazepam 0.5 Mg Tablet) 0.5 mg PO BIDP PRN PRN Reason: anxiety Divalproex Sodium (Divalproex 125 Mg Cap.Sprink) 125 mg PO BID [facility] Last Admin: 05/18/22 09:44 Dose: 125 mg Hydromorphone HCl (Hydromorphone 0.5 Mg/0.5 Ml Syringe) 0.5 mg IV Q2HP PRN; Protocol PRN Reason: Per Pain Protocol Last Admin: 05/16/22 14:41 Dose: 0.5 mg Piperacillin Sod/Tazobactam (Sod 2.25 gm/ Dextrose) 50 mls @ 100 mls/hr IV Q6H [facility] Last Infusion: 05/18/22 06:59 Dose: Infused Lactobacillus Rhamnosus (Lactobacillus 1 Capsule) 1 cap PO DAILY [facility] Last Admin: 05/18/22 09:43 Dose: 1 cap Levothyroxine Sodium (Levothyroxine 50 Mcg Tablet) 50 mcg PO ACB [facility] Last Admin: 05/18/22 08:35 Dose: 50 mcg Melatonin (Melatonin 3 Mg Tablet) 3 mg PO QHS [facility] Last Admin: 05/17/22 20:16 Dose: 3 mg Ondansetron HCl (Ondansetron 4 Mg/2 Ml Vial) 4 mg IV Q4HP PRN; Protocol PRN Reason: Nausea/Vomiting Polyethylene Glycol (Polyethylene Glycol 3350 17 Gm Packet) 17 gm PO DAILYP PRN PRN Reason: Constipation Last Admin: 05/18/22 09:45 Dose: 17 gm Quetiapine Fumarate (Quetiapine 25 Mg Tablet) 25 mg PO BID [facility] Last Admin: 05/18/22 09:43 Dose: 25 mg Sodium Chloride (0.9 % Sodium Chloride 10 Ml Syringe) 10 ml IV Q8 [facility] Last Admin: 05/18/22 06:26 Dose: Not Given A/P Narrative A/P Narrative: 86-year-old female who presented to the ED on the evening of the for weakness and lethargy and decreased appetite and daughter was worried about the leg stating when it becomes edematous it starts weeping and appeared more red than usual. She had 1 episode of nausea vomiting after her daughter fed her. Patient has a history of dementia depression anxiety chronic anemia hypothyroidism chronic kidney disease. She was admitted in the hospital in mid April for a right lower extremity cellul itis along the andrews. On admission she was mildly tachycardic and tachypneic and there was concern for sepsis. She was also febrile at 101.3 when she came in. Lactate was 1.8. Possible sources considered in ED were the leg versus other. Further work-up revealed transaminitis and hyperbilirubinemia and a possible cholecystitis. There is also dilated intra hepatic and extrahepatic ducts. This was discussed with surgeon who recommended ERCP versus MRCP, transfer discussion was started but no beds available. Able to get an MRCP ordered for today. Patient denying abdominal pain at this time. Since her arrival to the ED she had been on IV fluids and antibiotics. Her bilirubin has improved as well as her liver enzymes are improving although still elevated. Patient overall feels improved. Awaiting MRCP results for action of care. Case was also discussed with Dr. Ortiz. 05/15 Patient did not sleep well overnight per the nursing staff. Patient has no new complaints. Awaiting cholecystectomy. Good urine output last night with Lasix yesterday. Was swelling in the legs significantly improved. Mild hypokalemia. Renal function improved from yesterday. 05/16 Patient had lap gricelda yesterday. Pulmonary edema on chest x-ray still present but improving. Patient on oxygen. No new complaints or overnight events other than that was reported fever of one 1.1 in the middle the night. Renal function the same as yesterday. 05/17 No new complaints. Give Lasix yesterday with good output. Awaiting labs. Leg edema much improved still has pedal edema. 05/18: The patient received a dose of IV Lasix yesterday for her pedal edema. Her LFTs are downtrending and a white blood cell count is now 8.2. Due to her enterococcal bacteremia she will need parenteral antibiotics for 5 to 7 days. We will continue Zosyn. She will likely be able to go home in 1 to 2 days. Time Spent With Patient Time: Total time spent is greater than 50% in coordination of care (as documented) at patient's floor/unit and/or counseling patient: Total time spent with greater than 50% in coordination of care (as documented) at patient's floor/unit and/or counseling patient:: 25 - 35 minutes QUALITY Stroke Symptom Onset Unknown: No VTE Deep Vein Thrombosis/Pulmonary Embolism Present on Admission: No
[2022-05-18] MEDS ORDERED: BISACODYL 10 MG SUPP.RECT PR ONE (10:41)
--- NOTE | 2022-05-18 13:32 | General Surgery Progress Note ---
SUBJECTIVE Subjective Patient information: Note initiated : 05/18/22 at 1:31 pm Service Date, if different from initiated Date: [] Patient: Brandy Swanson 86 y/o F admitted on 05/14/22 for weakness. Chief Complaint: [] Principal diagnosis: The patient has a history of dementia and is not able to carry a conversati Interval history: Patient continues to improve. Vital signs remained stable. She is tolerating diet. She is afebrile. She denies nausea. CASANDRA drain still has bloody drainage but it is less in volume. Constitutional Vitals: Vital Signs Temp Pulse Resp BP Pulse Ox O2 Del Method O2 Flow Rate 98.9 F 77 22 140/70 96 3 05/18/22 12:00 05/18/22 12:00 05/18/22 12:00 05/18/22 12:00 05/18/22 12:00 05/18/22 12:00 05/16/22 10:09 Period Temp Pulse Resp BP Sys/Lubin Pulse Ox O2 Del Method O2 Flow Rate Last 24 Hr 97.6 F-99.6 F 71-84 - 103-146/51-79 92-97 Room Air-Room Air Intake and Output 05/17/22 05/18/22 05/18/22 21:59 05:59 13:59 Intake Total 50 530 350 Output Total 150 850 Balance 50 380 -500 Weight 184 lb 1.6 oz Intake & Output: Intake & Output 05/17/22 05/18/22 05/18/22 21:59 05:59 13:59 Intake Total 50 530 350 Output Total 150 850 Balance 50 380 -500 Weight 184 lb 1.6 oz Intake: IV 50 50 50 Zosyn 2.25 gm In Dextrose 5% in 50 50 50 Water 50 ml @ 100 mls/hr IV Q6H [facility] Rx#:[id number] Oral 480 300 Output: Drainage 100 Right Lateral Abdomen 100 Urine Catheter Amount 850 Void Amount 50 Other: Meal prune juice, apple juice Percent of Meal Consumed 25% Feeding Ability Total Assistance Urine Odor Strong Eye Eye exam: Present EOMI and PERRL Pupils: Present normal accommodation ENT ENT exam: Present mucous membranes moist and normal oropharynx Neck Neck exam: Present full ROM and normal inspection; Absent tenderness Respiratory Respiratory exam: Present normal respiratory exam and CTAB Cardiovascular Cardiovascular exam: Present normal rate and rhythm, RRR, +S1 and +S2; Absent JVD GI/Abdominal GI/Abdominal exam: Present normal bowel sounds; Absent soft, distended or hernia Extremities Exam Extremities exam: Present full ROM, normal inspection and neurovascular intact Neurological Exam Neurological exam: Present alert and oriented X3; Absent motor sensory deficit Psychiatric Psychiatric exam: Present anxious and flat affect A/P Assessment and plan (1) Cholelithiasis and cholecystitis without obstruction: Status: Acute (2) Primary degenerative dementia: Status: Acute (3) Gastroesophageal reflux: Status: Chronic Qualifiers: Esophagitis presence: esophagitis presence not specified Qualified Code(s): K21.9 - Gastro-esophageal reflux disease without esophagitis Plan Patient is stable. She will complete her antibiotics for bacteremia tomorrow and can be discharged at that time. Time Spent With Patient Time: Total time spent is greater than 50% in coordination of care (as documented) at patient's floor/unit and/or counseling patient:
[2022-05-18] MEDS ORDERED: ACETAMINOPHEN 325 MG TABLET PO PRN (19:34)
[2022-05-18] MEDS: ARIPIPRAZOLE 5 MG TABLET PO SCH (21:54)
[2022-05-18] MEDS: MELATONIN 3 MG TABLET PO SCH (21:54)
[2022-05-19] MEDS: PIPERACILLIN SODIUM/TAZOBACTAM 2.25 GM in DEXTROSE 5% IN WATER 50 ML IV SCH ×5 (00:41→23:32)
[2022-05-19] MEDS: 0.9 % SODIUM CHLORIDE 10 ML SYRINGE IV SCH ×3 (06:05→21:03)
[2022-05-19] MEDS: LEVOTHYROXINE 50 MCG TABLET PO SCH (08:37)
[2022-05-19] MEDS: LACTOBACILLUS 1 CAPSULE PO SCH (08:37)
[2022-05-19] MEDS: DIVALPROEX 125 MG CAP.SPRINK PO SCH ×2 (08:37→21:03)
[2022-05-19] MEDS: QUEtiapine 25 MG TABLET PO SCH ×2 (08:37→21:03)
--- NOTE | 2022-05-19 09:24 | Internal Med Progress Note ---
SUBJECTIVE Subjective Patient information: Note initiated : 05/19/22 at 9:22 am Service Date, if different from initiated Date: [] Patient: Brandy Swanson 86 y/o F admitted on 05/14/22 for weakness. Chief Complaint: [] Principal diagnosis: Acute cholecystitis, enterococcal bacteremia Interval history: The patient was resting comfortably in bed. The daughter and RN was present at the bedside to discuss plan of care. Constitutional Vitals: Vital Signs Temp Pulse Resp BP Pulse Ox O2 Del Method O2 Flow Rate 96.7 F L 73 20 138/65 97 3 05/19/22 08:00 05/19/22 08:00 05/19/22 08:00 05/19/22 08:00 05/19/22 08:00 05/19/22 08:00 05/16/22 10:09 Period Temp Pulse Resp BP Sys/Lubin Pulse Ox O2 Del Method O2 Flow Rate Last 24 Hr 96.7 F-101.1 F 73-87 20-24 129-182/62-86 94-97 Room Air-Room Air Intake and Output 05/18/22 05/19/22 05/19/22 21:59 05:59 13:59 Intake Total 1010 170 50 Output Total 65 101 Balance 945 69 50 Weight 82.781 kg Intake & Output: Intake & Output 05/18/22 05/19/22 05/19/22 21:59 05:59 13:59 Intake Total 1010 170 50 Output Total 65 101 Balance 945 69 50 Weight 82.781 kg Intake: IV 50 50 50 Zosyn 2.25 gm In Dextrose 5% in 50 50 50 Water 50 ml @ 100 mls/hr IV Q6H [facility] Rx#:[id number] Oral 960 120 Output: Drainage 60 45 Right Lateral Abdomen 60 45 Void Amount 50 # of times incontinent of urine 5 6 Other: Meal Dinner Percent of Meal Consumed 100% Feeding Ability Total Assistance Urine Color Yellow Urine Odor Normal Stool Size Large Large Stool Color Brown Brown Stool Consistency Liquid Liquid Loose Loose # Voids 1 # of times incontinent of 2 1 Bowels Head Head exam: Present atraumatic and normal inspection Eye Eye exam: Present normal appearance ENT ENT exam: Present mucous membranes moist, normal exam and normal external ear exam Neck Neck exam: Present normal inspection Respiratory Respiratory exam: Present normal respiratory exam Cardiovascular Cardiovascular exam: Present normal rate and rhythm GI/Abdominal GI/Abdominal exam: Present normal bowel sounds, soft and distended; Absent tenderness Back Exam Back exam: Present normal inspection Neurological Exam Neurological exam: Present alert Skin Skin exam: Present intact and warm OBJ DATA Labs CBC & Chem 7: 05/17/22 09:11 05/17/22 09:11 Labs: Abnormal Lab Results 05/17/22 05/17/22 05/17/22 09:11 09:11 09:11 RBC 2.85 L Hgb 8.3 L Hct 25.8 L RDW 17.0 H MPV 10.6 H Reactive Lymphocytes 3 H RBC Morphology Abnormal A Hypochromasia Occ A Anisocytosis Occ A RBC Fragments Rare A BUN 47 H Creatinine 1.6 H Magnesium 2.7 H GGT 118 H AST 32 H ALT 94 H NT-Pro-B Natriuret Pep 2486.0 H Albumin/Globulin Ratio 0.9 L Meds: Medications Acetaminophen (Acetaminophen 325 Mg Tablet) 650 mg PO Q4HP PRN; Protocol PRN Reason: Per Pain Protocol Last Admin: 05/18/22 21:54 Dose: 650 mg Clonazepam (Clonazepam 0.5 Mg Tablet) 0.5 mg PO BIDP PRN PRN Reason: anxiety Divalproex Sodium (Divalproex 125 Mg Cap.Sprink) 125 mg PO BID [facility] Last Admin: 05/19/22 08:37 Dose: 125 mg Hydromorphone HCl (Hydromorphone 0.5 Mg/0.5 Ml Syringe) 0.5 mg IV Q2HP PRN; Protocol PRN Reason: Per Pain Protocol Last Admin: 05/16/22 14:41 Dose: 0.5 mg Piperacillin Sod/Tazobactam (Sod 2.25 gm/ Dextrose) 50 mls @ 100 mls/hr IV Q6H [facility] Last Infusion: 05/19/22 08:37 Dose: Infused Lactobacillus Rhamnosus (Lactobacillus 1 Capsule) 1 cap PO DAILY [facility] Last Admin: 05/19/22 08:37 Dose: 1 cap Levothyroxine Sodium (Levothyroxine 50 Mcg Tablet) 50 mcg PO ACB [facility] Last Admin: 05/19/22 08:37 Dose: 50 mcg Melatonin (Melatonin 3 Mg Tablet) 3 mg PO QHS [facility] Last Admin: 05/18/22 21:54 Dose: 3 mg Ondansetron HCl (Ondansetron 4 Mg/2 Ml Vial) 4 mg IV Q4HP PRN; Protocol PRN Reason: Nausea/Vomiting Polyethylene Glycol (Polyethylene Glycol 3350 17 Gm Packet) 17 gm PO DAILYP PRN PRN Reason: Constipation Last Admin: 05/18/22 09:45 Dose: 17 gm Quetiapine Fumarate (Quetiapine 25 Mg Tablet) 25 mg PO BID [facility] Last Admin: 05/19/22 08:37 Dose: 25 mg Sodium Chloride (0.9 % Sodium Chloride 10 Ml Syringe) 10 ml IV Q8 [facility] Last Admin: 05/19/22 06:05 Dose: 10 ml A/P Narrative A/P Narrative: 86-year-old female who presented to the ED on the evening of the for weakness and lethargy and decreased appetite and daughter was worried about the leg stating when it becomes edematous it starts weeping and appeared more red than usual. She had 1 episode of nausea vomiting after her daughter fed her. Patient has a history of dementia depression anxiety chronic anemia hypothyroidism chronic kidney disease. She was admitted in the hospital in mid April for a right lower extremity cellulitis along the [place]s. On admission she was mildly tachycardic and tachypneic and there was concern for sepsis. She was also febrile at 101.3 when she came in. Lactate was 1.8. Possible sources considered in ED were the leg versus other. Further work-up revealed transaminitis and hyperbilirubinemia and a possible cholecystitis. There is also dilated intra hepatic and extrahepatic ducts. This was discussed with surgeon who recommended ERCP versus MRCP, transfer discussion was started but no beds available. Able to get an MRCP ordered for today. Patient denying abdominal pain at this time. Since her arrival to the ED she had been on IV fluids and antibiotics. Her bilirubin has improved as well as her liver enzymes are improving although still elevated. Patient overall feels improved. Awaiting MRCP results for action of care. Case was also discussed with Dr. Ortiz. 05/15 Patient did not sleep well overnight per the nursing staff. Patient has no new complaints. Awaiting cholecystectomy. Good urine output last night with Lasix yesterday. Was swelling in the legs significantly improved. Mild hypokalemia. Renal function improved from yesterday. 05/16 Patient had lap gricelda yesterday. Pulmonary edema on chest x-ray still present but improving. Patient on oxygen. No new complaints or overnight events other than that was reported fever of one 1.1 in the middle the night. Renal function the same as yesterday. 05/17 No new complaints. Give Lasix yesterday with good output. Awaiting labs. Leg edema much improved still has pedal edema. 05/18: The patient received a dose of IV Lasix yesterday for her pedal edema. Her LFTs are downtrending and a white blood cell count is now 8.2. Due to her enterococcal bacteremia she will need parenteral antibiotics for 5 to 7 days. We will continue Zosyn. She will likely be able to go home in 1 to 2 days. 05/19: The patient spiked a temp of 101. We will follow-up on her labs. Continue antibiotics for her acute cholecystitis and enterococcal bacteremia. Will need to follow-up with general surgery regarding the plan for her CASANDRA drain. The daughter does not feel comfortable sending her to a penitentiary facility today. She states that she is eating and drinking okay. There is no issues with abdominal pain. She is moving her bowels. Time Spent With Patient Time: Total time spent is greater than 50% in coordination of care (as documented) at patient's floor/unit and/or counseling patient: Total time spent with greater than 50% in coordination of care (as documented) at patient's floor/unit and/or counseling patient:: 25 - 35 minutes QUALITY Stroke Symptom Onset Unknown: No VTE Deep Vein Thrombosis/Pulmonary Embolism Present on Admission: No
[2022-05-19 11:21] LABS: Basophils # (Auto) 0.02 K/mcL (0.00-0.30); Basophils % (Auto) 0.2 % (0.0-2.0); Eosinophils # (Auto) 0.32 K/mcL (0.00-0.70); Eosinophils % (Auto) 3.7 % (0.0-7.0); Hematocrit 28.3 % (34.1-44.9); Hemoglobin 9.1 g/dL (11.2-15.7); Lymphocytes % (Auto) 24.4 % (15.5-49.0); Mean Cell Volume 89.8 fL (80.0-100.0); Mean Corpuscular HGB Conc 32.2 g/dL (31.0-36.0); Mean Platelet Volume 9.9 fL (7.4-10.4); Monocytes # (Auto) 1.02 K/mcL (0.10-0.90); Monocytes % (Auto) 11.8 % (1.0-12.0); Neutrophils % (Auto) 59.1 % (38.0-78.0); Platelet Count 246 K/mcL (140-440); RBC 3.15 M/mcL (3.59-5.38); Red Cell Distribution Width 16.5 % (11.5-14.5); WBC 8.6 K/mcL (4.5-11.0)
[2022-05-19 11:23] LABS: ALT/SGPT 51 U/L (<40); AST/SGOT 19 U/L (<32); Albumin 2.8 gm/dL (3.2-5.2); Albumin/Globulin Ratio 0.7 (1.0-2.3); Alkaline Phosphatase 81 U/L (39-117); Bilirubin,Total 0.5 mg/dL (0.1-1.0); Blood Urea Nitrogen 26 mg/dL (8-23); Calcium 8.7 mg/dL (8.6-10.4); Carbon Dioxide 25 mmol/L (22-30); Chloride 100 mmol/L (96-108); Globulin 3.8 gm/dL (2.2-3.7); Glomerular Filtration Rate 37; Glucose 114 mg/dL (70-105)
--- NOTE | 2022-05-19 12:35 | General Surgery Progress Note ---
SUBJECTIVE Subjective Patient information: Note initiated : 05/19/22 at 12:27 pm Service Date, if different from initiated Date: [] Patient: Brandy Swanson 86 y/o F admitted on 05/14/22 for weakness. Chief Complaint: [] Principal diagnosis: Acute cholecystitis, enterococcal bacteremia Interval history: Patient remains clinically stable. Vital signs have been stable except for single elevation in temperature 101 degrees. This responded to Tylenol and she has been afebrile for the past 12hours. She is very sedentary and is poorly motivated to move which is probably contributing to her temperature elevation. Hospitalist desires to keep her for 1 more day for IV antibiotics after which she should be transferred to penitentiary facility. There is nothing related to her gallbladder that needs to be addressed at this time. Constitutional Vitals: Vital Signs Temp Pulse Resp BP Pulse Ox O2 Del Method O2 Flow Rate 96.7 F L 73 20 138/65 97 3 05/19/22 08:00 05/19/22 08:00 05/19/22 08:00 05/19/22 08:00 05/19/22 08:00 05/19/22 08:00 05/16/22 10:09 Period Temp Pulse Resp BP Sys/Lubin Pulse Ox O2 Del Method O2 Flow Rate Last 24 Hr 96.7 F-101.1 F 73-87 20-24 129-182/62-86 94-97 Room Air-Room Air Intake and Output 05/18/22 05/19/22 05/19/22 21:59 05:59 13:59 Intake Total 1010 170 50 Output Total 65 101 Balance 945 69 50 Weight 182 lb 8 oz Intake & Output: Intake & Output 05/18/22 05/19/22 05/19/22 21:59 05:59 13:59 Intake Total 1010 170 50 Output Total 65 101 Balance 945 69 50 Weight 182 lb 8 oz Intake: IV 50 50 50 Zosyn 2.25 gm In Dextrose 5% in 50 50 50 Water 50 ml @ 100 mls/hr IV Q6H [facility] Rx#:[id number] Oral 960 120 Output: Drainage 60 45 Right Lateral Abdomen 60 45 Void Amount 50 # of times incontinent of urine 5 6 Other: Meal Dinner Percent of Meal Consumed 100% Feeding Ability Total Assistance Urine Color Yellow Urine Odor Normal Stool Size Large Large Stool Color Brown Brown Stool Consistency Liquid Liquid Loose Loose # Voids 1 # of times incontinent of 2 1 Bowels Head Head exam: Present atraumatic, normal inspection and normocephalic Eye Eye exam: Present EOMI and PERRL ENT ENT exam: Present mucous membranes moist and normal oropharynx Neck Neck exam: Present full ROM and normal inspection; Absent lymphadenopathy or tenderness Respiratory Respiratory exam: Present normal respiratory exam and CTAB; Absent rales, rhonchi or wheezes Cardiovascular Cardiovascular exam: Present normal rate and rhythm, RRR, +S1 and +S2; Absent JVD GI/Abdominal GI/Abdominal exam: Present normal bowel sounds, soft, distended and tenderness (No tenderness around port sites) Extremities Exam Extremities exam: Present full ROM, normal inspection and neurovascular intact; Absent calf tenderness Neurological Exam Neurological exam: Present motor sensory deficit and oriented X3 Psychiatric Psychiatric exam: Present depressed and flat affect A/P Assessment and plan (1) Cholelithiasis and cholecystitis without obstruction: Status: Acute (2) Primary degenerative dementia: Status: Acute Plan Patient is clinically stable and can be transferred to penitentiary facility once she is cleared by medicine. Time Spent With Patient Time: Total time spent is greater than 50% in coordination of care (as documented) at patient's floor/unit and/or counseling patient:
[2022-05-19] MEDS: POLYETHYLENE GLYCOL 3350 17 GM PACKET PO PRN (13:47)
--- NOTE | 2022-05-19 14:22 | EKG ---
[facility] Test Date: 2022-05-12 Pat Name: Brandy Swanson Department: ED Room: Gender: Female Intr[employer] Developer: AW : [id number] Requested By: Poncho Kemp Order Number: [id number] Reading MD: James Dias M.D. Measurements Intervals [place] Rate: 107 P: 64 UT: 192 QRS: -12 QRSD: 90 T: 21 QT: 316 QTc: 422 Interpretive Statements Sinus tachycardia Low voltage, precordial leads Electronically Signed On 05-19-2022 14:22:39 PDT by James Dias M.D. /[id number]
[2022-05-19] MEDS: MELATONIN 3 MG TABLET PO SCH (21:03)
[2022-05-19] MEDS: ARIPIPRAZOLE 5 MG TABLET PO SCH (21:03)
[2022-05-20] MEDS: PIPERACILLIN SODIUM/TAZOBACTAM 2.25 GM in DEXTROSE 5% IN WATER 50 ML IV SCH ×2 (05:58→11:33)
[2022-05-20] MEDS: 0.9 % SODIUM CHLORIDE 10 ML SYRINGE IV SCH (05:59)
[2022-05-20] MEDS: LEVOTHYROXINE 50 MCG TABLET PO SCH (07:28)
[2022-05-20] MEDS: DIVALPROEX 125 MG CAP.SPRINK PO SCH (08:30)
[2022-05-20] MEDS: LACTOBACILLUS 1 CAPSULE PO SCH (08:30)
[2022-05-20] MEDS: QUEtiapine 25 MG TABLET PO SCH (08:31)
--- NOTE | 2022-05-20 10:53 | Discharge Summary ---
Discharge Provider Provider IMPORTANT FOLLOW-UP INFORMATION FOR PCP: 1. F/u with general surgery Patient information: Note initiated : 05/20/22 at 10:53 am Service Date, if different from initiated Date: [] Patient: Brandy Swanson 86 y/o F admitted on 05/14/22 for weakness. Chief Complaint: [] Date of admission: 05/14/22 15:04 Discharge date: 05/20/22 Primary care physician: Ponce Renae MD Consults: 05/12/22 Consult to Physician [CONS] Stat Comment: Consulting Provider: Sloan Barton Reason For Exam: Physician to Consult 05/13/22 Consult to Physician [CONS] Stat Comment: medical management, sepsis Consulting Provider: Sloan Barton Reason For Exam: Physician to Consult 05/14/22 Consult to Physician [CONS] Stat Comment: Consulting Provider: Carroll Ortiz Reason For Exam: Physician to Consult COURSE Hospital Course Hospital course: A/P Narrative: 86-year-old female who presented to the ED on the evening of the for weakness and lethargy and decreased appetite and daughter was worried about the leg stating when it becomes edematous it starts weeping and appeared more red than usual. She had 1 episode of nausea vomiting after her daughter fed her. Patient has a history of dementia depression anxiety chronic anemia hypothyroidism chronic kidney disease. She was admitted in the hospital in mid April for a right lower extremity cellulitis along the andrews. On admission she was mildly tachycardic and tachypneic and there was concern for sepsis. She was also febrile at 101.3 when she came in. Lactate was 1.8. Possible sources considered in ED were the leg versus other. Further work-up revealed transaminitis and hyperbilirubinemia and a possible cholecystitis. There is also dilated intra hepatic and extrahepatic ducts. This was discussed with surgeon who recommended ERCP versus MRCP, transfer discussion was started but no beds available. Able to get an MRCP ordered for today. Patient denying abdominal pain at this time. Since her arrival to the ED she had been on IV fluids and antibiotics. Her bilirubin has improved as well as her liver enzymes are improving although still elevated. Patient overall feels improved. Awaiting MRCP results for action of care. Case was also discussed with Dr. Ortiz. 05/15 Patient did not sleep well overnight per the nursing staff. Patient has no new complaints. Awaiting cholecystectomy. Good urine output last night with Lasix yesterday. Was swelling in the legs significantly improved. Mild hypokalemia. Renal function improved from yesterday. 05/16 Patient had lap gricelda yesterday. Pulmonary edema on chest x-ray still present but improving. Patient on oxygen. No new complaints or overnight events other than that was reported fever of one 1.1 in the middle the night. Renal function the same as yesterday. 05/17 No new complaints. Give Lasix yesterday with good output. Awaiting labs. Leg edema much improved still has pedal edema. 05/18: The patient received a dose of IV Lasix yesterday for her pedal edema. Her LFTs are downtrending and a white blood cell count is now 8.2. Due to her enterococcal bacteremia she will need parenteral antibiotics for 5 to 7 days. We will continue Zosyn. She will likely be able to go home in 1 to 2 days. 05/19: The patient spiked a temp of 101. We will follow-up on her labs. Continue antibiotics for her acute cholecystitis and enterococcal bacteremia. Will need to follow-up with general surgery regarding the plan for her CASANDRA drain. The daughter does not feel comfortable sending her to a [facility] facility today. She states that she is eating and drinking okay. There is no issues with abdominal pain. She is moving her bowels. 05/20: The patient remains afebrile for 24 hours. She has completed a course of antibiotics. She will be discharged to usp facility and follow-up with general surgery in outpatient setting. Discharge diagnosis: Acute cholecysititis, enterococcal bacteremia Time Spent with Patient Time attestation: Total time spent providing and/or coordinating discharge services: Time spent: Greater than 30 minutes EXAM Constitutional Vitals: Temp Pulse Resp BP Pulse Ox O2 Del Method O2 Flow Rate 97.9 F 73 20 171/80 96 3 05/20/22 07:59 05/20/22 07:59 05/20/22 07:59 05/20/22 07:59 05/20/22 07:59 05/20/22 07:59 05/16/22 10:09 General appearance: average body habitus Head Head exam: Present atraumatic, normal inspection and normocephalic Eye Eye exam: Present EOMI, normal appearance and PERRL; Absent conjunctival injection ENT ENT exam: Present normal exam; Absent mucous membranes dry Neck Neck exam: Present full ROM; Absent lymphadenopathy Respiratory Respiratory exam: Present normal respiratory exam and CTAB; Absent decreased breath sounds, respiratory distress or wheezes Cardiovascular Cardiovascular exam: Present normal rate and rhythm and RRR; Absent JVD GI/Abdominal GI/Abdominal exam: Present normal bowel sounds and soft; Absent diminished bowel sounds, distended, guarding, mass, rebound or tenderness Additional comments: CASANDRA drain in place Neurological Exam Neurological exam: Present alert Psychiatric Psychiatric exam: Present normal affect and normal mood Skin Skin exam: Present intact and warm; Absent erythema, pallor, petechiae or rash Discharge Data Data Completed and Pending Labs on day of discharge: Labs from last 24 hours 05/19/22 05/19/22 10:27 10:27 WBC 8.6 RBC 3.15 L Hgb 9.1 L Hct 28.3 L MCV 89.8 MCH 28.9 MCHC 32.2 RDW 16.5 H Plt Count 246 MPV 9.9 Immature Gran % (Auto) 0.8 H Neut % (Auto) 59.1 Lymph % (Auto) 24.4 Jackson % (Auto) 11.8 Eos % (Auto) 3.7 Baso % (Auto) 0.2 Lymph # (Auto) 2.10 Jackson # (Auto) 1.02 H Eos # (Auto) 0.32 Baso # (Auto) 0.02 Immature Gran # 0.07 H Absolute Neutrophils 5.08 Sodium 134 Potassium 3.9 Chloride 100 Carbon Dioxide 25 Anion Gap 9.0 BUN 26 H Creatinine 1.3 H GFR Calculation 37 Glucose 114 H Calcium 8.7 Total Bilirubin 0.5 AST 19 ALT 51 H Alkaline Phosphatase 81 Total Protein 6.6 Albumin 2.8 L Globulin 3.8 H Albumin/Globulin Ratio 0.7 L Discharge Plan Patient/Caregiver Discharge Instructions Activity: as per physical therapy Diet: Regular Diet Instructions: Laparoscopic Cholecystectomy (DC) Prescriptions: Continued aripiprazole [Abilify] 5 mg tablet 5 mg PO QHS Qty: 30 0RF alendronate 70 mg tablet 70 mg PO QWEEK Qty: 12 1RF divalproex [Depakote] 125 mg tablet,delayed release (DR/EC) 125 mg PO BID Qty: 60 1RF polyethylene glycol 3350 [Miralax] 17 gram/dose powder 17 g PO QDAY torsemide 10 mg tablet 10 mg PO QAM Qty: 90 1RF clobetasol 0.05 % cream 1 applic topical BID 14 Days Qty: 30 1RF Ure-Na 15 gram powder in packet 0.5 packet PO QDAY Qty: 16 0RF levothyroxine 50 mcg tablet 50 mcg PO QDAY Qty: 30 1RF flaxseed oil 1,000 mg capsule 1,000 mg PO QDAY vitamin B complex tablet 1 tab-cap PO QDAY prenat.vits,jenna,pyl-ojcm-ylsfw tablet 1 tab PO QDAY lactobacillus combination no.8 3 billion cell capsule 3,000 mmu cells PO QDAY quetiapine 25 mg Tablet 25 mg PO BID Qty: 30 0RF clonazepam 0.5 mg tablet 0.5 mg PO BID PRN (Reason: anxiety) Qty: 30 0RF Follow Up Plan Follow up with: Carroll Ortiz MD [Physician] - 06/01/22 9:30 am Ponce Renae MD [Primary Care Provider] - 05/27/22 1:15 pm Patient Disposition: Xfer SNF Prognosis: Fair Rehab Potential: Good I certify that the patient requires SNF services: Yes Overall status at discharge: patient is progressing back to baseline Discharge Orders: Discharge Order (Routine); Ordered 05/20/22 Ordered By: Ame LITTLE VTE Deep Vein Thrombosis/Pulmonary Embolism Present on Admission: No
--- NOTE | 2022-05-20 15:26 | Operative Note ---
DATE OF OPERATION: 05/15/2022 PREOPERATIVE DIAGNOSIS: Acute cholecystitis with cholelithiasis. POSTOPERATIVE DIAGNOSIS: Acute cholecystitis with cholelithiasis. PROCEDURE: Laparoscopic cholecystectomy. SURGEON: Carroll Ortiz M.D. FINDINGS: Acute severe inflammation of the gallbladder with evidence of early cirrhotic liver disease. DESCRIPTION OF PROCEDURE: Under general anesthesia, the patient's abdomen was prepped and draped in a sterile field. Supraumbilical incision was made and Veress needle was inserted uneventfully. Abdomen was insufflated with 2.5 liters of CO2. A 12 mm port was placed. Laparoscope was placed. There was acute severe inflammation of the gallbladder, and there was early cirrhotic changes of the liver with a moderate amount of peritoneal fluid. The gallbladder was decompressed and was then grasped and positioned. Adhesions to the gallbladder were taken down using blunt dissection and electrocautery. The dissection was carried out, but I could not get adequate evaluation of the infundibulum and the duct and cystic artery. A 12-port was placed with a band retractor placed to hold the liver back and to decompress the base of the gallbladder. Once this was done, cystic duct was isolated. It was followed back to the gallbladder and transected using Endo LUI stapler. Cystic artery branch was clipped with five clips on the wall of the gallbladder and divided. Because of severe inflammation, there was a moderate amount of bleeding from the bed. This was controlled with electrocautery, and once it was maximally controlled with electrocautery, two large sheets of Surgicel were placed in the bed. A #10 Oral drain was placed in the subhepatic space over the Surgicel. The drain was brought out through the most lateral port site. CO2 was allowed to escape from the abdomen and the ports were removed. The fascia at the umbilicus was closed with 0 Vicryl. Skin incisions were closed with tatiana. The drain was secured with 2-0 nylon. Tegaderm dressings were placed. The patient tolerated the procedure well. She was awakened and taken to the postanesthetic care unit in satisfactory condition. LCS:yanet Job ID: [id number] Doc ID: [id number] Carroll Ortiz M.D.
== END 2022-05-20 12:58 | DRG 854 ==
LOC: ED 17:32 → MEDSUR 05-14 15:04
PROVIDERS: ADMIT Family Medicine Adult Medicine; ATTEND Family Medicine Adult Medicine